=== PATIENT | female | born 1965 | race African-American/Black ===

== ENCOUNTER 2016-11-12 16:44 | Inpatient (IN) | payer OTHER ==
[~2016-11-12] VITALS: Ht 157.5 cm; Wt 80.8 kg
[~2016-11-12 16:44] MED LIST: PHEN15CA PO; VITA20003 PO
[2016-11-12 16:47] VITALS: BP 140/88; PULSE 102; RESP 20; TEMP 97.8; O2SAT 99
--- NOTE | 2016-11-12 16:56 | PD ---
Physical Exam Date Seen by Provider: Nov 12, 2016 Time Seen by Provider: 16:49 Data Data Last Documented VS Vital Signs Date Time Temp Pulse Resp B/P Pulse Ox O2 Delivery O2 Flow Rate FiO2 11/12/16 16:47 97.8 102 20 140/88 99 Room Air MDM Supervised Visit with WENDI: No Narrative Course 51 YO F with complaint of severe abdominal pain. Patient states recent diagnosis of metastatic liver cancer. History of breast cancer. States that Dr. Aggarwal sent her to be admitted for liver biopsy. Treated with morphine PO last night. Vitals reviewed. Seen in triage, awaiting bed placement. Fanny Huertas Nov 12, 2016 16:55
--- NOTE | 2016-11-12 17:27 | PD ---
HPI Chief Complaint: Abdominal Pain Time Seen by Provider: 17:04 Travel History International Travel<30 days: No Contact w/Intl Traveler<30days: No Traveled to known affect area: No History of Present Illness HPI PATIENT HAS KNOWN H/O BREAST CA HAD A CT ABD/PELVIS DONE YESTERDAY AT [facility] WHICH SHOWED METS LIVER CA AND BONE PER DR MACARIO SHE WAS TOLD TO COME HERE SINCE HE'S SCHEDULING A BIOPSY FOR TOMORROW. PFSH Past Medical History Hx Anticoagulant Therapy: No Asthma: No Blood Disorders: No Anxiety: No Depression: No Heart Rhythm Problems: No Cancer: Yes (BREAST CA) Cardiovascular Problems: Yes (MVP) High Cholesterol: No Chemotherapy: Yes (RADIATION BRAIN TUMOR) Chest Pain: No Congestive Heart Failure: No COPD: No Cerebrovascular Accident: No Diabetes: No Endocrine: No Genitourinary: No Hepatitis: No Hiatal Hernia: No Immune Disorder: No Musculoskeletal: No Neurologic: No Psychiatric: No Reproductive: No Respiratory: No Radiation Therapy: Yes (menigioma in head) Sleep Apnea: No Thyroid Disease: No ?: Not Past Surgical History Abdominal Surgery: No AICD: No Body Medical Devices: BREAST RECONSTRUCTION Cardiac Surgery: No Ear Surgery: No Endocrine Surgery: No Eye Surgery: No Genitourinary Surgery: No Gynecologic Surgery: Yes (HYSTERECTOMY) Hysterectomy: Yes Joint Replacement: No Mastectomy: Yes (bilateral) Oral Surgery: No Pacemaker: No Thoracic Surgery: Yes (LT LUMPECTOMY WITH LYMPH NODES) Other Surgery: Yes (bilateral mastectomies) Social History Alcohol Use: No Tobacco Use: No Substance Use: No Allergies-Medications (Allergen,Severity, Reaction): Coded Allergies: Percocet (Verified Allergy, Unknown, Itching, 11/12/16) Reported Meds & Prescriptions Reported Meds & Active Scripts Active Reported Vitamin D (Cholecalciferol) Unknown Strength Cap 1 Tab PO WEEKLY Phentermine Hcl (Phentermine Resin Complex) Unknown Strength Cap 1 Tab PO DAILY Review of Systems Except as stated in HPI: all other systems reviewed are Neg Gastrointestinal: Positive: Nausea, Abdominal Pain Physical Exam Narrative GENERAL: SKIN: Warm and dry. HEAD: Atraumatic. Normocephalic. EYES: Pupils equal and round. No scleral icterus. No injection or drainage. ENT: No nasal bleeding or discharge. Mucous membranes pink and moist. NECK: Trachea midline. No JVD. CARDIOVASCULAR: Regular rate and rhythm. RESPIRATORY: No accessory muscle use. Clear to auscultation. Breath sounds equal bilaterally. GASTROINTESTINAL: Abdomen soft, DIFFUSELY TTP, HEPATOMEGALY NOTED, NO REBOUND/ RIGIDITY/ MUSCULOSKELETAL: Extremities without clubbing, cyanosis, or edema. No obvious deformities. NEUROLOGICAL: Awake and alert. No obvious cranial nerve deficits. Motor grossly within normal limits. Five out of 5 muscle strength in the arms and legs. Normal speech. PSYCHIATRIC: Appropriate mood and affect; insight and judgment normal. Data Data Last Documented VS Vital Signs Date Time Temp Pulse Resp B/P Pulse Ox O2 Delivery O2 Flow Rate FiO2 11/12/16 17:40 131/90 98 11/12/16 16:47 97.8 102 20 Room Air Orders Complete Blood Count With Diff (11/12/16 17:22) Comprehensive Metabolic Panel (11/12/16 17:22) Iv Access Insert/Monitor (11/12/16 17:22) Ecg Monitoring (11/12/16 17:22) Oximetry (11/12/16 17:22) NPO (11/12/16 17:22) Ondansetron Inj (Zofran Inj) (11/12/16 17:30) Sodium Chloride 0.9% Flush (Ns Flush) (11/12/16 17:30) Hydromorphone Pf Inj (Dilaudid Pf Inj) (11/12/16 17:30) Prothrombin Time / Inr (Pt) (11/12/16 17:22) Act Partial Throm Time (Ptt) (11/12/16 17:22) Dext 5%-Nacl 0.45% 500 Ml Inj (D5w-1/2 N (11/12/16 17:45) Consult Medical Oncology (11/12/16 ) Admit Order (Ed Use Only) (11/12/16 17:43) MDM Medical Decision Making Medical Screen Exam Complete: Yes Emergency Medical Condition: Yes Medical Record Reviewed: Yes Differential Diagnosis KNOWN REASON FOR ABD PAIN...CT REPORT AT [facility] NOTED AND REVIEWED Narrative Course AFTER D/W DR JAMES AND HENRY, WILL HAVE PATIENT OBS FOR PAIN CONTROL AND EXPECTED LIVER BX TOMORROW AM Diagnosis Primary Impression: PAIN CONTROL Additional Impression: LIVER CA R/O METS Admitting Information Admitting Physician Requests: Observation Cleve Edwards MD Nov 12, 2016 17:27
[2016-11-12] MEDS ORDERED: HYDROmorphone HCL PF 1 MG/ML VIAL IVS ONE (17:30)
[2016-11-12] MEDS ORDERED: SODIUM CHLORIDE 0.9% FLUSH 10 ML FLUSH IV FLUSH PRN ×2 (17:30→18:30)
[2016-11-12] MEDS ORDERED: ONDANSETRON HCL 4 MG/2 ML VIAL IVP ONE (17:30)
[2016-11-12 17:40] VITALS: BP 131/90; O2SAT 98
[2016-11-12] MEDS ORDERED: DEXT 5%-NACL 0.45% 500 ML INJ 500 ML IV ONE (17:45)
--- NOTE | 2016-11-12 18:29 | HHI.HP ---
HPI Service [facility] Hospitalists Primary Care Physician Bekah Hinton MD Admission Diagnosis LIVER LESIONS POSSIBLE METASTASIS Chief Complaint: sent by oncology for admit for liver biopsy Travel History International Travel<30 Days: No Contact w/Intl Traveler <30 Da: No Traveled to Known Affected Are: No History of Present Illness 51 y/o female with hx breast cancer left s/p bilateral mastectomy reconstruction ,hx brain meningoma s/p RT [address] abdomen by oncology showed mass liver bones and was told to come to hospital for admit for liver biopsy . Patient does have some abdominal pain. Review of Systems Gastrointestinal: COMPLAINS OF: Abdominal pain Past Family Social History Past Medical History bilateral breast mastectomy s/p left breast cancer ,meningoma previous RT to brain Past Surgical History bilateral mastectomies breast reconstruction,hysterectomy Reported Medications was on diet pill and vit d Allergies: Coded Allergies: Percocet (Verified Allergy, Unknown, Itching, 11/12/16) Social History NS,ND Physical Exam Vital Signs Vital Signs Date Time Temp Pulse Resp B/P Pulse Ox O2 Delivery O2 Flow Rate FiO2 11/12/16 17:40 131/90 98 11/12/16 16:47 97.8 102 20 140/88 99 Room Air Physical Exam GENERAL: This is a well-nourished, well-developed patient, in no apparent distress. SKIN: No rashes, ecchymoses or lesions. Cool and dry. HEAD: Atraumatic. Normocephalic. No temporal or scalp tenderness. EYES: Pupils equal round and reactive. Extraocular motions intact. No scleral icterus. No injection or drainage. ENT: Nose without bleeding, purulent drainage or septal hematoma. Throat without erythema, tonsillar hypertrophy or exudate. Uvula midline. Airway patent. NECK: Trachea midline. No JVD or lymphadenopathy. Supple, nontender, no meningeal signs. CARDIOVASCULAR: Regular rate and rhythm without murmurs, gallops, or rubs. RESPIRATORY: Clear to auscultation. Breath sounds equal bilaterally. No wheezes , rales, or rhonchi. GASTROINTESTINAL: Abdomen soft, non-tender, nondistended. No hepato-splenomegaly , or palpable masses. No guarding. MUSCULOSKELETAL: Extremities without clubbing, cyanosis, or edema. No joint tenderness, effusion, or edema noted. No calf tenderness. Negative Homans sign bilaterally. NEUROLOGICAL: Awake and alert. Cranial nerves II through XII intact. Motor and sensory grossly within normal limits. Five out of 5 muscle strength in all muscle groups. Normal speech. Laboratory all pending Assessment and Plan Problem List: (1) Personal history of malignant neoplasm of breast Status: Chronic Plan: consult oncology (2) Metastasis to liver Status: Acute Plan: abnormality seen on CT scan plan for possible liver biopsy plan as per oncology Assessment and Plan further plan as per oncology Code Status full Discussed Condition With patient Renato Castillo MD Nov 12, 2016 18:29
[2016-11-12] MEDS ORDERED: LACTULOSE SYRUP 20 GM/30 ML CUP PO PRN (18:30)
[2016-11-12] MEDS ORDERED: SENNOSIDES 8.6 MG TAB PO PRN (18:30)
[2016-11-12] MEDS ORDERED: BISACODYL 10 MG SUPP RECTAL PRN (18:30)
[2016-11-12] MEDS ORDERED: MAGNESIUM HYDROXIDE SUSP 30 ML CUP PO PRN (18:30)
[2016-11-12] MEDS ORDERED: ONDANSETRON HCL 4 MG/2 ML VIAL IVP PRN (18:30)
[2016-11-12] MEDS ORDERED: NALOXONE HCL 0.4 MG/ML AMP IV PRN (18:30)
[2016-11-12 19:06] LABS: AUTOMATED NEUTROPHIL # 4.1 TH/MM3 (1.8-7.7); BASOPHIL # 0.1 TH/MM3 (0-0.2); BASOPHIL % 0.8 % (0.0-2.0); EOSINOPHIL # 0.1 TH/MM3 (0-0.4); EOSINOPHIL % 0.8 % (0.0-4.0); HEMATOCRIT 42.4 % (35.0-46.0); HEMO FLAGS DIFF FINAL; LYMPHOCYTE # 1.5 TH/MM3 (1.0-4.8); MEAN CELL VOLUME 92.8 FL (80.0-100.0); MEAN CORPUSCULAR HEMOGLOBIN 29.5 PG (27.0-34.0); MEAN CORPUSCULAR HGB CONC 31.8 % (32.0-36.0); MONO % 12.6 % (0.0-8.0); NEUT % 62.8 % (16.0-70.0); PLATELET COUNT 278 TH/MM3 (150-450); RED BLOOD COUNT 4.57 MIL/MM3 (4.00-5.30); RED CELL DISTRIBUTION WIDTH 15.3 % (11.6-17.2); WHITE BLOOD COUNT 6.5 TH/MM3 (4.0-11.0)
[2016-11-12 19:14] LABS: APTT (PATIENT) 27.1 SEC (24.3-30.1); PROTHROMBIN TIME - PATIENT 11.2 SEC (9.8-11.6)
[2016-11-12 19:15] VITALS: BP 121/83; PULSE 81; RESP 20; O2SAT 94
[2016-11-12 19:16] LABS: ANION GAP 11 MEQ/L (5-15); AST (GOT) 134 U/L (15-37); BICARBONATE 25.6 MEQ/L (21.0-32.0); BLOOD UREA NITROGEN 12 MG/DL (7-18); CHLORIDE 103 MEQ/L (98-107); GLOMERULAR FILTRATION RATE 74 ML/MIN (>89); POTASSIUM 3.6 MEQ/L (3.5-5.1); SODIUM (NA) 140 MEQ/L (136-145)
[2016-11-12 19:17] LABS: ALT (GPT) 59 U/L (10-53)
[2016-11-12 19:19] LABS: ALKALINE PHOSPHATASE 264 U/L (45-117); TOTAL BILIRUBIN ADULT 1.4 MG/DL (0.2-1.0)
[2016-11-12] MEDS: DOCUSATE SODIUM 50 MG/SENNA 8.6 MG TAB PO SCH (20:47)
[2016-11-12] MEDS: SODIUM CHLORIDE 0.9% FLUSH 10 ML FLUSH IV FLUSH SCH (20:47)
[2016-11-12 20:54] VITALS: BP 137/98; PULSE 80; RESP 18; TEMP 98; O2SAT 97
[2016-11-12] MEDS: HYDROmorphone HCL PF 1 MG/ML VIAL IV PRN (23:45)
[2016-11-13] VITALS (11 sets, daily range): BP systolic 109–165; BP diastolic 69–98; PULSE 78–91; RESP 14–20; TEMP 97.7–98.4; O2SAT 91–100
[2016-11-13] MEDS: HYDROmorphone HCL PF 1 MG/ML VIAL IV PRN ×2 (04:51→09:45)
[2016-11-13] MEDS: SODIUM CHLORIDE 0.9% FLUSH 10 ML FLUSH IV FLUSH SCH ×2 (08:01→20:47)
[2016-11-13] MEDS: DOCUSATE SODIUM 50 MG/SENNA 8.6 MG TAB PO SCH ×2 (08:01→20:47)
--- NOTE | 2016-11-13 08:41 | MB ---
cc: TESS ARNETT MD,FANY ISSA DATE OF CONSULTATION: 11/13/2016 REASON FOR CONSULTATION Patient with extensive liver masses; likely malignancy of unknown primary. She is in an impending visceral crisis. Also has symptomatic bony metastases. CHIEF COMPLAINT Abdominal pain and fatigue. HISTORY OF PRESENT ILLNESS Ms. 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 The patient was treated with modified radical mastectomy with sparing of the skin of the breast followed by observation. She had been without evidence of disease recurrence. For the past 4 weeks or so she had been feeling upper abdominal pain and flank pain on both sides. She has also had a decreased appetite and fatigue. She reported the symptoms initially to her primary care physician and underwent abdominal ultrasound last week, the ultrasound revealed masses within the liver. This was followed up with a CT scan of the abdomen and pelvis with IV contrast and this revealed extensive and very large masses involving the liver. Additionally, she was noted to have pulmonary nodules and destructive bony lesions consistent with metastases. She was referred to me on Sunday11/10/2016 and was seen the same day. The patient's blood work was reviewed and it was noted she had hyperbilirubinemia and elevated liver enzymes. Additionally, given the massive involvement of the liver with metastases she was recommended an urgent workup. She was offered a hospitalization at that time, however, she declined and chose to come in on Sunday afternoon for Sunday morning biopsy to help identify primary. She came in last night to the emergency department because the pain was quite severe and not managed at home. PAST MEDICAL HISTORY 1. 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 2. Meningioma. PAST SURGICAL HISTORY 1. Partial hysterectomy. 2. Left breast biopsy. 3. Left breast mastectomy. 4. Prophylactic right breast mastectomy. 5. Breast reconstruction. 6. Tubal ligation. 7. Colonoscopy. GYNECOLOGIC HISTORY 5, para 5. Postmenopausal. FAMILY HISTORY Mother with history of breast carcinoma at the age of 55, maternal grandmother with history of ovarian cancer. SOCIAL HISTORY The patient is , she lives at home with her , she has four adult children. She is a lifelong nonsmoker and also denies a history of heavy alcohol consumption. ALLERGIES NO KNOWN DRUG ALLERGIES. MEDICATIONS Current inpatient medications: 1. Senna/Colace one tablet p.o. b.i.d. 2. Dilaudid 0.5 mg q.4 hours as needed for pain. 3. Lactulose 30 mL p.o. daily. 4. Magnesium hydroxide 30 mL p.o. q. 12 hours. 5. Naloxone 0.4 mg IV as needed for over sedation. 6. Ondansetron 4 mg IV q.4 hours as needed for nausea and vomiting. 7. Senna 17.2 mg p.o. q. 12 hours for moderate to severe nausea. REVIEW OF SYSTEMS 13-point review of systems were obtained and the following are the pertinent positives: CONSTITUTIONAL: The patient reports fatigue, weakness, decreased appetite. HEENT: Reports headaches, denies soreness in the throat, denies nosebleeds, denies difficulty swallowing. RESPIRATORY: Denies difficulty breathing, pleuritic chest pain, PND, orthopnea, hemoptysis. CARDIOVASCULAR: Denies angina-like chest pain, PND, orthopnea, palpitations. GI: Reports right and left upper quadrant abdominal pain, fullness, and right and left flank pain, she denies nausea, vomiting, diarrhea hematochezia, melena or jaundice. : Denies dysuria, hematuria, urinary incontinence. LATEX FOAM WORKER: Denies any focal sensory or motor deficits. PHYSICAL EXAMINATION VITAL SIGNS: Temperature 98.4 degrees Fahrenheit, heart rate 78 beats per minute, respiratory rate 18, blood pressure 122/72, O2 sats 98% on room air. GENERAL PHYSICAL APPEARANCE: Ms. Reynoso is a very pleasant middle-aged female, she is of medium height and moderate build, appears to be in no acute distress and has a pleasant disposition. HEENT: Head is atraumatic, normocephalic, conjunctivae are pale, sclerae are mildly icteric, EOMI, PERRLA. ORAL EXAM: No pharyngeal erythema. NECK: No palpable cervical or supraclavicular lymphadenopathy. RESPIRATORY EXAM: Good air movement bilaterally. No added breath sounds. CARDIOVASCULAR: Regular rate and rhythm, S1-S2. No obvious murmurs, rubs or gallops. ABDOMEN: Protuberant belly, soft, tender over the upper quadrants, hepatomegaly is palpable. No other organ enlargement noted. LOWER EXTREMITIES: No pretibial edema. No calf tenderness. LATEX FOAM WORKER: No focal sensory or motor deficits. LABORATORY FINDINGS Blood work dated 11/12/2016: Sodium 140, potassium 3.6, chloride 103, bicarb 25.6, BUN 12, creatinine 0.96, EGFR 74, random glucose 113, calcium 9.4, total bilirubin 1.4, AST 134, ALT 59, alkaline phosphatase is 264, albumin of 3.2. Coags: INR 1, PT 11.2, PTT 27.1, CBC: WBC count 6.5, hemoglobin 13.5 gm/dl, hematocrit 42.4%, platelet count 278, absolute neutrophil count is 4.1. IMAGING STUDIES Imaging studies performed at [facility] dated 11/09/2016: With and without contrast: 1. Hepatomegaly with innumerable rim enhancing liver masses throughout the liver with some of the larger lesions demonstrating central necrosis. Imaging features are suspicious for metastatic disease. There are 5 lytic destructive bone lesions identified with the largest in the right posterior iliac bone, this lesion would be amenable to image guided percutaneous biopsy if histologic diagnosis is needed. There is also a 4-mm nodule in the right lower lobe of the lung. Given the findings of suspicious metastatic disease consider CT with IV contrast of the lungs. Small volume free fluid in the pelvis. ASSESSMENT Ms. Reynoso is a 51-year-old female with extensively metastatic malignancy of unknown primary. Tissue diagnosis is pending. Her CT imaging of the abdomen was reviewed and she has tremendous metastatic disease in the liver and given the abnormal liver function testing I suspect she has an impending visceral crisis. In situations where a visceral crisis is suspected, establishing a tissue diagnosis of utmost importance so as to initiate appropriate therapy. She has been recommended biopsy, she may undergo a liver biopsy or have one of the bony metastases biopsied. I have requested CEA, CA 15-3 and CA 19-9 levels as baseline tumor markers. Additionally, I will request imaging of the chest as well to stage her fully and to also quantify any possible intrathoracic disease or bony metastases to the thoracic bony structures. Imaging of the brain will also be needed but this may be done as an outpatient as she has no neurologic symptoms. I would like to see this patient in followup in my office later this week to discuss the findings on the biopsy. MD ANABEL Odonnell/AZAM /7:50 AM /8:08 AM
[2016-11-13] MEDS ORDERED: LIDOCAINE HCL 1% 20 ML VIAL ONE (11:59)
[2016-11-13] MEDS ORDERED: fentaNYL CITRATE 250 MCG/5 ML AMP ONE (12:33)
[2016-11-13] MEDS ORDERED: MIDAZOLAM HCL 5 MG/5 ML VIAL ONE (12:33)
--- NOTE | 2016-11-13 14:10 | RADRPT ---
EXAM DATE/TIME: 11/13/2016 12:48 [facility] COMPARISON: No previous studies available for comparison. INDICATIONS : Mass. SEDATION TIME: 30 minutes BIOPSY SITE: liver MEDICATION(S): 1.) 2.5 mg midazolam (Versed) IV 2.) 125 mcg fentanyl (Sublimaze) IV DEVICE(S): 1.) 18 gauge Guerra blunt needle 2.) 20 gauge Temno core biopsy needle MEDICAL HISTORY : Carcinoma, breast. SURGICAL HISTORY : Hysterectomy. lumpectomy ENCOUNTER: Initial ACUITY: 1 day PAIN SCORE: 0/10 LOCATION: Bilateral abdomen A total of two core specimen(s) were obtained and sent to the laboratory for pathologic evaluation. PROCEDURE: 1. CT guided liver biopsy. 2. Conscious sedation with continuous EKG and oximetry monitoring. 3. EKG and oximetry remained stable throughout the procedure. Prior to the procedure informed consent was obtained. Any appropriate prior imaging studies were rev iewed. Using automated exposure control and adjustment of the mA and/or kV according to patient size, radiat ion dose was kept as low as reasonably achievable to obtain optimal diagnostic quality images. The site was prepped in a sterile fashion. Full sterile technique was used, including cap, mask, narayan rile gloves and gown and a large sterile sheet. Hand hygiene and 2% chlorhexidine and/or betadine/al cohol prep was utilized per protocol for cutaneous antisepsis. The skin and subcutaneous tissues wer e infiltrated with local anesthetic solution. Under CT guidance an 18 gauge blunt needle was placed down to one of the masses in the anterior right lobe. 318 gauge cores were obtained. Follow-up CT scan reveals no hemorrhage. The patient tolerated the procedure well and there were no complications. The patient was returned to the Radiology Outpatient Unit in stable condition. CONCLUSION: Uncomplicated CT guided biopsy. Pathology is pending. Alex Kelley MD FACR on November 13, 2016 at 14:04 Board Certified Radiologist. This report was verified electronically.
--- NOTE | 2016-11-13 15:33 | RADRPT ---
EXAM DATE/TIME: 11/13/2016 12:34 [facility] COMPARISON: CT THORAX W/O CONTRAST, March 01, 2015, 16:18. INDICATIONS : Shortness of breath, evaluate for metastatic disease. RADIATION DOSE: 13.06 CTDIvol (mGy) MEDICAL HISTORY : Carcinoma, breast. SURGICAL HISTORY : Hysterectomy. ENCOUNTER: Initial ACUITY: 1 day PAIN SCALE: 0/10 LOCATION: Bilateral chest TECHNIQUE: Volumetric scanning of the chest was performed. Using automated exposure control and adjustment of t he mA and/or kV according to patient size, radiation dose was kept as low as reasonably achievable to obtain optimal diagnostic quality images. FINDINGS: There are several small pulmonary nodules seen in the right lung. The largest one is seen in the rig ht lower lobe measuring 0.6 cm. There is questionable nodularity seen at the lateral left base. There is some reji rounding atelectasis making it difficult to confirm a nodule in this region. There are at least four nodules seen in the right lung. These nodules appear new. Bilateral breast implants are present. The axillary regions appear clear. Significant hilar mediast inal adenopathy is not seen. There are numerous masses seen throughout the liver, several of these masses measure at least 6 cm. Multiple bone lesions are seen. This includes a large bone lesion involving the left pedicle of T10. This measures approximately 2.5 x 1.6 cm. It extends into the left lateral aspect of the spinal canal. There is a lso a smaller lesion seen at the anterior aspect of the T8 and anterior aspect of the T12 vertebral bodies. There does appear to be a small focal bone lesion seen at the superior right lateral aspect of the st ernum. CONCLUSION: 1. Numerous large masses throughout the liver consistent with metastatic disease. 2. Several areas of bony metastatic disease. The most concerning lesion is at the left T10 level ca using erosion of the pedicle and extending into the transverse process and base of the spinous proces s. This also erodes into the left side of the spinal canal and abuts the thecal sac. 3. Development of several small pulmonary nodules. The largest nodule only measures 6 mm. However given all of the other findings and the fact these are new, metastatic lesions need to be suspected. Theodore Langley MD on November 13, 2016 at 14:03 Board Certified Radiologist. This report was verified electronically.
--- NOTE | 2016-11-13 16:20 | HHI.PR ---
Subjective Remarks Pt had Liver biopsy today by IR Objective Vitals Vital Signs Date Time Temp Pulse Resp B/P Pulse Ox O2 Delivery O2 Flow Rate FiO2 11/13/16 15:59 81 131/82 98 11/13/16 14:50 98.0 89 16 127/84 97 11/13/16 14:20 85 18 127/87 97 11/13/16 13:50 88 17 123/80 96 11/13/16 13:35 98.3 84 16 118/69 91 11/13/16 11:36 97.9 84 18 123/87 95 11/13/16 08:18 97.7 86 16 165/92 98 11/13/16 05:23 22 11/13/16 04:31 98.4 78 18 122/72 98 11/13/16 00:30 98.1 78 14 111/73 97 11/12/16 20:54 98.0 80 18 137/98 97 11/12/16 19:15 81 20 121/83 94 Room Air 11/12/16 17:40 131/90 98 11/12/16 16:47 97.8 102 20 140/88 99 Room Air Result Diagram: 11/12/16 1815 11/12/16 1815 Other Results Laboratory Tests Test 11/12/16 11/13/16 18:15 10:52 White Blood Count 6.5 TH/MM3 Red Blood Count 4.57 MIL/MM3 Hemoglobin 13.5 GM/DL Hematocrit 42.4 % Mean Corpuscular Volume 92.8 FL Mean Corpuscular Hemoglobin 29.5 PG Mean Corpuscular Hemoglobin 31.8 % Concent Red Cell Distribution Width 15.3 % Platelet Count 278 TH/MM3 Mean Platelet Volume 8.6 FL Neutrophils (%) (Auto) 62.8 % Lymphocytes (%) (Auto) 23.0 % Monocytes (%) (Auto) 12.6 % Eosinophils (%) (Auto) 0.8 % Basophils (%) (Auto) 0.8 % Neutrophils # (Auto) 4.1 TH/MM3 Lymphocytes # (Auto) 1.5 TH/MM3 Monocytes # (Auto) 0.8 TH/MM3 Eosinophils # (Auto) 0.1 TH/MM3 Basophils # (Auto) 0.1 TH/MM3 CBC Comment DIFF FINAL Differential Comment Prothrombin Time 11.2 SEC Prothromb Time International 1.0 RATIO Ratio Activated Partial 27.1 SEC Thromboplast Time Sodium Level 140 MEQ/L Potassium Level 3.6 MEQ/L Chloride Level 103 MEQ/L Carbon Dioxide Level 25.6 MEQ/L Anion Gap 11 MEQ/L Blood Urea Nitrogen 12 MG/DL Creatinine 0.96 MG/DL Estimat Glomerular Filtration 74 ML/MIN Rate Random Glucose 113 MG/DL Calcium Level 9.4 MG/DL Total Bilirubin 1.4 MG/DL Aspartate Amino Transf 134 U/L (AST/SGOT) Alanine Aminotransferase 59 U/L (ALT/SGPT) Alkaline Phosphatase 264 U/L Total Protein 7.7 GM/DL Albumin 3.2 GM/DL Carcinoembryonic Antigen 16.9 NG/ML Imaging Last Impressions Liver Biopsy CT 11/13/16 0000 Signed Impressions: Service Date/Time: Sunday, November 13, 2016 12:48 - CONCLUSION: Uncomplicated CT guided biopsy. Pathology is pending. Alex Kelley MD FACR Objective Remarks General: NAD, AAOx3 Chest: CTA Cardiac: Regular Abd: +BS, soft mild RUQ tenderness Ext: No edema A/P Problem List: (1) Metastasis to liver Status: Acute Plan: - Pt is a 51 y/o female with hx of high grade ductal carcinoma in situ of the left breast, initially dx in 2013 s/p radical mastectomy/ - Over the last month she has had issues with abdominal pain/bilateral flank pain, and poor appetite. - Outpt Liver US revealed masses in the liver. - Outpt CT Abd/pelvis --> Extensive and very large masses involving the liver, destructive jessica lesions and pulmonary nodules. - Pt was seen by Dr. Aggarwal as an outpt on 11/10 and found to have elevated LFTs and was recommended to go to the ED at that time but declined at that time and actually reported to the ED on 11/12. - Pt underwent CT Guided liver biopsy on 11/13 - Pathology pending. - CT Chest (11/13/16) --> Numerous large masses throughout the liver consistent with metastatic disease. Several areas of bony metastatic disease, most concerning lesion at the left T10 level causing erosion of the pedicle and extending into the transverse process and base of the spinous process. This also erodes into the left side of the spinal canal and abuts the thecal sac. Development of several small pulmonary nodules, the largest only measure 6mm. - Oncology is following. - CEA elevated at 16.9, CA 15-3 and CA 19-9 are pending. - Monitor LFTs - Supportive care - Start Oxycodone 5mg Q6H scheduled and PRN Dilaudid - Diet as tolerated - Constipation precautions - DVT prophylaxis (2) Personal history of malignant neoplasm of breast Status: Chronic Plan: - See above. Assessment and Plan Patient examined. Assessment and plan formulated with Shreya Gonzalez PA-C. I agree with the above. Shreya Gonzalez Nov 13, 2016 16:20 Mauricio Figueroa DO Nov 17, 2016 10:23
[2016-11-14] VITALS: BP 125/86; PULSE 80; RESP 16; TEMP 97.5; O2SAT 100
[2016-11-14 04:00] VITALS: BP 127/90; PULSE 75; RESP 16; TEMP 97.3; O2SAT 97
[2016-11-14 06:59] LABS: AUTOMATED NEUTROPHIL # 3.5 TH/MM3 (1.8-7.7); BASOPHIL # 0.1 TH/MM3 (0-0.2); BASOPHIL % 1.3 % (0.0-2.0); EOSINOPHIL # 0.1 TH/MM3 (0-0.4); EOSINOPHIL % 1.6 % (0.0-4.0); HEMO FLAGS DIFF FINAL; LYMPH % 27.6 % (9.0-44.0); LYMPHOCYTE # 1.7 TH/MM3 (1.0-4.8); MEAN CELL VOLUME 93.5 FL (80.0-100.0); MEAN CORPUSCULAR HEMOGLOBIN 29.7 PG (27.0-34.0); MEAN CORPUSCULAR HGB CONC 31.7 % (32.0-36.0); MONO % 11.1 % (0.0-8.0); NEUT % 58.4 % (16.0-70.0); PLATELET COUNT 278 TH/MM3 (150-450); RED BLOOD COUNT 4.71 MIL/MM3 (4.00-5.30); RED CELL DISTRIBUTION WIDTH 15.2 % (11.6-17.2); WHITE BLOOD COUNT 6.1 TH/MM3 (4.0-11.0)
[2016-11-14 07:19] LABS: ALT (GPT) 60 U/L (10-53); ANION GAP 7 MEQ/L (5-15); AST (GOT) 145 U/L (15-37); BICARBONATE 29.8 MEQ/L (21.0-32.0); BLOOD UREA NITROGEN 9 MG/DL (7-18); CHLORIDE 102 MEQ/L (98-107); GLOMERULAR FILTRATION RATE 93 ML/MIN (>89); POTASSIUM 3.6 MEQ/L (3.5-5.1); SODIUM (NA) 139 MEQ/L (136-145)
[2016-11-14 07:21] LABS: ALKALINE PHOSPHATASE 294 U/L (45-117); TOTAL BILIRUBIN ADULT 1.5 MG/DL (0.2-1.0)
[2016-11-14 08:00] VITALS: BP 126/81; PULSE 71; RESP 16; TEMP 97.7; O2SAT 98
--- NOTE | 2016-11-14 08:32 | PD.ONC.PN ---
Subjective Subjective Remarks Afebrile overnight. Patient having some pain in thoracic back radiating around to rib cage. Pain controlled with Oxycodone. The pain medicine lasts for about 6 hours before the pain returns. She says she is happy with the current dose of pain medication as it allows her to stay awake and alert but with enough pain control. Objective Data Date Time Temp Pulse Resp B/P Pulse Ox O2 Delivery O2 Flow Rate FiO2 11/14/16 08:00 97.7 71 16 126/81 98 11/14/16 04:00 97.3 75 16 127/90 97 11/14/16 00:00 97.5 80 16 125/86 100 11/13/16 20:30 97.7 88 18 141/98 99 11/13/16 19:12 98.2 91 20 109/71 100 11/13/16 15:59 81 131/82 98 11/13/16 14:50 98.0 89 16 127/84 97 11/13/16 14:20 85 18 127/87 97 11/13/16 13:50 88 17 123/80 96 11/13/16 13:35 98.3 84 16 118/69 91 11/13/16 11:36 97.9 84 18 123/87 95 11/14/16 11/14/16 11/14/16 07:00 15:00 23:00 Intake Total 240 ml Balance 240 ml Result Diagram: 11/14/16 0555 11/14/16 0555 Laboratory Results Laboratory Tests Test 11/13/16 11/14/16 10:52 05:55 Carcinoembryonic Antigen 16.9 NG/ML CA 15-3 Antigen 1190.8 U/ML CA 19-9 Antigen LESS THAN 1.2 U/ML White Blood Count 6.1 TH/MM3 Red Blood Count 4.71 MIL/MM3 Hemoglobin 14.0 GM/DL Hematocrit 44.0 % Mean Corpuscular Volume 93.5 FL Mean Corpuscular Hemoglobin 29.7 PG Mean Corpuscular Hemoglobin 31.7 % Concent Red Cell Distribution Width 15.2 % Platelet Count 278 TH/MM3 Mean Platelet Volume 8.3 FL Neutrophils (%) (Auto) 58.4 % Lymphocytes (%) (Auto) 27.6 % Monocytes (%) (Auto) 11.1 % Eosinophils (%) (Auto) 1.6 % Basophils (%) (Auto) 1.3 % Neutrophils # (Auto) 3.5 TH/MM3 Lymphocytes # (Auto) 1.7 TH/MM3 Monocytes # (Auto) 0.7 TH/MM3 Eosinophils # (Auto) 0.1 TH/MM3 Basophils # (Auto) 0.1 TH/MM3 CBC Comment DIFF FINAL Differential Comment Sodium Level 139 MEQ/L Potassium Level 3.6 MEQ/L Chloride Level 102 MEQ/L Carbon Dioxide Level 29.8 MEQ/L Anion Gap 7 MEQ/L Blood Urea Nitrogen 9 MG/DL Creatinine 0.79 MG/DL Estimat Glomerular Filtration 93 ML/MIN Rate Random Glucose 71 MG/DL Calcium Level 9.4 MG/DL Total Bilirubin 1.5 MG/DL Aspartate Amino Transf 145 U/L (AST/SGOT) Alanine Aminotransferase 60 U/L (ALT/SGPT) Alkaline Phosphatase 294 U/L Total Protein 7.9 GM/DL Albumin 3.3 GM/DL Administered Medications Medications (Trade) Dose Ordered Sig/Jason Route PRN Reason Start Time Stop Time Status Last Admin Dose Admin Sodium Chloride (NS Flush) 2 ml BID IV FLUSH 11/12/16 21:00 11/13/16 20:47 Hydromorphone HCl (Dilaudid Pf Inj) 0.5 mg Q4H PRN IV pain 5-10 11/12/16 18:30 11/13/16 09:45 Senna/Docusate Sodium (Aviva-Colace) 1 tab BID PO 11/12/16 21:00 11/13/16 20:47 Oxycodone HCl (Roxicodone) 5 mg Q6H PO 11/13/16 17:00 11/14/16 04:50 Objective Remarks GENERAL: Middle aged female, upright in bed in nad SKIN: Warm and dry. HEAD: Normocephalic. EYES: No injection or drainage. NECK: Supple, trachea midline. CARDIOVASCULAR: Regular rate and rhythm RESPIRATORY: Breath sounds equal bilaterally. No accessory muscle use. GASTROINTESTINAL: Abdomen soft, non-tender, nondistended. EXTREMITIES: No cyanosis NEUROLOGICAL: awake and alert, normal speech. moving all extremities. Assessment/Plan Assessment 51y/o female with extensive liver masses; likely malignancy of unknown primary. Admitted with severe abdominal pain. 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 The patient was treated with modified radical mastectomy with sparing of the skin of the breast followed by observation. She had been without evidence of disease recurrence. -- For the past 4 weeks or so she had been feeling upper abdominal pain and flank pain on both sides. She has also had a decreased appetite and fatigue. She reported the symptoms initially to her primary care physician and underwent abdominal ultrasound last week, the ultrasound revealed masses within the liver. This was followed up with a CT scan of the abdomen and pelvis with IV contrast and this revealed extensive and very large masses involving the liver. Additionally, she was noted to have pulmonary nodules and destructive bony lesions consistent with metastases. Plan 1. extensive liver mets, unknown primary--s/p liver biopsy on 11/13. pathology pending. 2. bony mets--will consult radiation oncology as these are symptomatic/painful. Also T10 lesion is eroding into spinal canal. 3. pain management: continue Oxycodone 5mg PO q 6 hours, also has Dilaudid 0.5mg IV q 4 hours. 4. DVT prophylaxis: will start Lovenox 40mg SQ q 12, patient is at high risk for developing DVT. Dionna Ferrell Nov 14, 2016 08:31
--- NOTE | 2016-11-14 08:41 | HHI.PR ---
Subjective Remarks Pain is better controlled today. Tolerating her diet. +Flatus Afebrile Objective Vitals Vital Signs Date Time Temp Pulse Resp B/P Pulse Ox O2 Delivery O2 Flow Rate FiO2 11/14/16 08:00 97.7 71 16 126/81 98 11/14/16 04:00 97.3 75 16 127/90 97 11/14/16 00:00 97.5 80 16 125/86 100 11/13/16 20:30 97.7 88 18 141/98 99 11/13/16 19:12 98.2 91 20 109/71 100 11/13/16 15:59 81 131/82 98 11/13/16 14:50 98.0 89 16 127/84 97 11/13/16 14:20 85 18 127/87 97 11/13/16 13:50 88 17 123/80 96 11/13/16 13:35 98.3 84 16 118/69 91 11/13/16 11:36 97.9 84 18 123/87 95 11/13/16 11/13/16 11/14/16 15:00 23:00 07:00 Intake Total 0 ml 240 ml Balance 0 ml 240 ml Intake Oral 0 ml 240 ml # Voids 4 1 1 Result Diagram: 11/14/16 0555 11/14/16 0555 Other Results Laboratory Tests Test 11/12/16 11/13/16 11/14/16 18:15 10:52 05:55 White Blood Count 6.5 TH/MM3 6.1 TH/MM3 Red Blood Count 4.57 MIL/MM3 4.71 MIL/MM3 Hemoglobin 13.5 GM/DL 14.0 GM/DL Hematocrit 42.4 % 44.0 % Mean Corpuscular Volume 92.8 FL 93.5 FL Mean Corpuscular Hemoglobin 29.5 PG 29.7 PG Mean Corpuscular Hemoglobin 31.8 % 31.7 % Concent Red Cell Distribution Width 15.3 % 15.2 % Platelet Count 278 TH/MM3 278 TH/MM3 Mean Platelet Volume 8.6 FL 8.3 FL Neutrophils (%) (Auto) 62.8 % 58.4 % Lymphocytes (%) (Auto) 23.0 % 27.6 % Monocytes (%) (Auto) 12.6 % 11.1 % Eosinophils (%) (Auto) 0.8 % 1.6 % Basophils (%) (Auto) 0.8 % 1.3 % Neutrophils # (Auto) 4.1 TH/MM3 3.5 TH/MM3 Lymphocytes # (Auto) 1.5 TH/MM3 1.7 TH/MM3 Monocytes # (Auto) 0.8 TH/MM3 0.7 TH/MM3 Eosinophils # (Auto) 0.1 TH/MM3 0.1 TH/MM3 Basophils # (Auto) 0.1 TH/MM3 0.1 TH/MM3 CBC Comment DIFF FINAL DIFF FINAL Differential Comment Prothrombin Time 11.2 SEC Prothromb Time International 1.0 RATIO Ratio Activated Partial 27.1 SEC Thromboplast Time Sodium Level 140 MEQ/L 139 MEQ/L Potassium Level 3.6 MEQ/L 3.6 MEQ/L Chloride Level 103 MEQ/L 102 MEQ/L Carbon Dioxide Level 25.6 MEQ/L 29.8 MEQ/L Anion Gap 11 MEQ/L 7 MEQ/L Blood Urea Nitrogen 12 MG/DL 9 MG/DL Creatinine 0.96 MG/DL 0.79 MG/DL Estimat Glomerular Filtration 74 ML/MIN 93 ML/MIN Rate Random Glucose 113 MG/DL 71 MG/DL Calcium Level 9.4 MG/DL 9.4 MG/DL Total Bilirubin 1.4 MG/DL 1.5 MG/DL Aspartate Amino Transf 134 U/L 145 U/L (AST/SGOT) Alanine Aminotransferase 59 U/L 60 U/L (ALT/SGPT) Alkaline Phosphatase 264 U/L 294 U/L Total Protein 7.7 GM/DL 7.9 GM/DL Albumin 3.2 GM/DL 3.3 GM/DL Carcinoembryonic Antigen 16.9 NG/ML CA 15-3 Antigen 1190.8 U/ML CA 19-9 Antigen LESS THAN 1.2 U/ML Imaging Last Impressions Liver Biopsy CT 11/13/16 0000 Signed Impressions: Service Date/Time: Sunday, November 13, 2016 12:48 - CONCLUSION: Uncomplicated CT guided biopsy. Pathology is pending. Alex Kelley MD FACR Objective Remarks General: NAD, AAOx3 Chest: CTA Cardiac: Regular Abd: +BS, soft mild RUQ tenderness Ext: No edema A/P Problem List: (1) Metastasis to liver Status: Acute Plan: - Pt is a 51 y/o female with hx of high grade ductal carcinoma in situ of the left breast, initially dx in 2013 s/p radical mastectomy - Over the last month she has had issues with abdominal pain/bilateral flank pain, and poor appetite. - Outpt Liver US revealed masses in the liver. - Outpt CT Abd/pelvis --> Extensive and very large masses involving the liver, destructive jessica lesions and pulmonary nodules. - Pt was seen by Dr. Aggarwal as an outpt on 11/10 and found to have elevated LFTs and was recommended to go to the ED at that time but declined at that time and actually reported to the ED on 11/12. - Pt underwent CT Guided liver biopsy on 11/13 - Pathology pending. - CT Chest (11/13/16) --> Numerous large masses throughout the liver consistent with metastatic disease. Several areas of bony metastatic disease, most concerning lesion at the left T10 level causing erosion of the pedicle and extending into the transverse process and base of the spinous process. This also erodes into the left side of the spinal canal and abuts the thecal sac. Development of several small pulmonary nodules, the largest only measure 6mm. - Oncology is following. - CEA elevated at 16.9, CA 15-3 elevated at 1190.8 and CA 19-9 is less than 1.2 - Radiation oncology has been consulted for the painful thoracici spine met and liver mets - Monitor LFTs - Supportive care - Oxycodone 5mg Q6H scheduled and PRN Dilaudid - Diet as tolerated - Constipation precautions - DVT prophylaxis with Lovenox (2) Personal history of malignant neoplasm of breast Status: Chronic Plan: - See above. Assessment and Plan Patient examined. Assessment and plan formulated with Shreya Gonzalez PA-C. I agree with the above. Shreya Gonzalez Nov 14, 2016 08:41 Mauricio Figueroa DO Nov 17, 2016 10:24
[2016-11-14] MEDS: ENOXAPARIN SODIUM 40 MG/0.4 ML SYRINGE SQ SCH (09:03)
[2016-11-14] MEDS: DOCUSATE SODIUM 50 MG/SENNA 8.6 MG TAB PO SCH ×2 (09:03→21:06)
[2016-11-14] MEDS: SODIUM CHLORIDE 0.9% FLUSH 10 ML FLUSH IV FLUSH SCH ×2 (09:03→21:10)
[2016-11-14 12:00] VITALS: BP 133/92; PULSE 80; RESP 18; TEMP 97.6; O2SAT 97
[2016-11-14 16:00] VITALS: BP 138/80; PULSE 71; RESP 18; TEMP 97.5; O2SAT 99
--- NOTE | 2016-11-14 18:10 | PD.CONS ---
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 She complains of 3 or 4 weeks of progressive right greater than left flank pain with radiation to the right greater than left gluteal region and proximal thigh. A CT scan of the chest and abdomen completed last week revealed a large liver mass with distractive metastatic lesions in the thoracic spine with positive pulmonary nodules. She presented to the emergency room 11/13/16 due to intractable pain. She denies any significant pain weakness numbness or paresthesias in the upper or lower extremities. She complains of constipation but no bladder dysfunction. Review of Systems Constitutional: COMPLAINS OF: Fatigue, Change in appetite Eyes: DENIES: Blurred vision, Diplopia, Vision loss Respiratory: DENIES: Cough, Shortness of breath Cardiovascular: DENIES: Lower Extremity Edema Gastrointestinal: COMPLAINS OF: Constipation, DENIES: Diarrhea Musculoskeletal: COMPLAINS OF: Joint pain, Back pain Neurologic: DENIES: Headache Psychiatric: DENIES: Anxiety, Confusion Past Family Social History Allergies: Coded Allergies: Percocet (Verified Allergy, Unknown, Itching, 11/12/16) Past Medical History History of high-grade ductal carcinoma of the breast No history of significant cardiac, pulmonary disease Past Surgical History Bilateral mastectomy with reconstruction Hysterectomy Tubal ligation Reported Medications Reported Meds & Active Scripts Active Reported Vitamin D (Cholecalciferol) Unknown Strength Cap 1 Tab PO WEEKLY Phentermine Hcl (Phentermine Resin Complex) Unknown Strength Cap 1 Tab PO DAILY Family History Positive for breast and ovarian cancer in her mother and grandmother Social History Does not smoke cigarettes No significant alcohol use Physical Exam Vital Signs Vital Signs Date Time Temp Pulse Resp B/P Pulse Ox O2 Delivery O2 Flow Rate FiO2 11/14/16 16:00 97.5 71 18 138/80 99 11/14/16 12:00 97.6 80 18 133/92 97 11/14/16 08:00 97.7 71 16 126/81 98 11/14/16 04:00 97.3 75 16 127/90 97 11/14/16 00:00 97.5 80 16 125/86 100 11/13/16 20:30 97.7 88 18 141/98 99 11/13/16 19:12 98.2 91 20 109/71 100 Physical Exam GENERAL: This is a well-nourished, well-developed patient, in no apparent distress. SKIN: No rashes, ecchymoses or lesions. Cool and dry. HEAD: Atraumatic. Normocephalic. No temporal or scalp tenderness. EYES: Sclerae nonicteric ENT: No facial edema or ecchymosis NECK: Trachea midline. No JVD or lymphadenopathy. Supple, nontender, no meningeal signs. RESPIRATORY: Clear respirations, regular, nonlabored GASTROINTESTINAL: Mild abdominal distention. Mild tenderness primarily right upper quadrant. Positive right greater than left flank tenderness MUSCULOSKELETAL: Mild discomfort left distal thigh and knee with motor testing and range of motion. No significant lower extremity edema. NEUROLOGICAL: Awake and alert Oriented X 3 Speech is clear Conversant and appropriate Follow simple commands well Answers questions appropriately Reasonable judgment and insight Recent and remote memory are intact No evidence of anxiety or depression Pupils are equal and reactive to accommodation. Extra-ocular movements, visual redd to confrontation, facial sensorimotor, tongue, palate, sternocleidomastoid testing, hearing to finger rub testing, and bilateral shoulder shrug are all intact. Sensation is intact to light touch in all extremities Strength normal major flexion and extension groups all extremities Isauro's absent bilaterally No ankle clonus Plantar responses absent bilateral Fine motor movements intact upper extremities Laboratory Laboratory Tests Test 11/14/16 05:55 White Blood Count 6.1 Red Blood Count 4.71 Hemoglobin 14.0 Hematocrit 44.0 Mean Corpuscular Volume 93.5 Mean Corpuscular Hemoglobin 29.7 Mean Corpuscular Hemoglobin 31.7 Concent Red Cell Distribution Width 15.2 Platelet Count 278 Mean Platelet Volume 8.3 Neutrophils (%) (Auto) 58.4 Lymphocytes (%) (Auto) 27.6 Monocytes (%) (Auto) 11.1 Eosinophils (%) (Auto) 1.6 Basophils (%) (Auto) 1.3 Neutrophils # (Auto) 3.5 Lymphocytes # (Auto) 1.7 Monocytes # (Auto) 0.7 Eosinophils # (Auto) 0.1 Basophils # (Auto) 0.1 CBC Comment DIFF FINAL Differential Comment Sodium Level 139 Potassium Level 3.6 Chloride Level 102 Carbon Dioxide Level 29.8 Anion Gap 7 Blood Urea Nitrogen 9 Creatinine 0.79 Estimat Glomerular Filtration 93 Rate Random Glucose 71 Calcium Level 9.4 Total Bilirubin 1.5 Aspartate Amino Transf 145 (AST/SGOT) Alanine Aminotransferase 60 (ALT/SGPT) Alkaline Phosphatase 294 Total Protein 7.9 Albumin 3.3 Result Diagram: 11/14/16 0555 11/14/16 0555 Imaging 11/13/16 CT scan chest images reviewed by the undersigned. There is a destructive lesion at the left T10 lamina and pedicle with a soft tissue component impinging on the dorsal lateral left thecal sac. Liver Biopsy CT 11/13/16 0000 Signed Impressions: Service Date/Time: Sunday, November 13, 2016 12:48 - CONCLUSION: Uncomplicated CT guided biopsy. Pathology is pending. Alex Kelley MD FACR Chest CT 11/13/16 0000 Signed Impressions: Service Date/Time: Sunday, November 13, 2016 12:34 - CONCLUSION: 1. Numerous large masses throughout the liver consistent with metastatic disease. 2. Several areas of bony metastatic disease. The most concerning lesion is at the left T10 level causing erosion of the pedicle and extending into the transverse process and base of the spinous process. This also erodes into the left side of the spinal canal and abuts the thecal sac. 3. Development of several small pulmonary nodules. The largest nodule only measures 6 mm. However given all of the other findings and the fact these are new, metastatic lesions need to be suspected. Theodore Langley MD Assessment and Plan Assessment and Plan Impression: 1. Metastatic lesion to T10 pedicle and lamina with mild impingement on the spinal canal in patient with history of high-grade ductal carcinoma of the breast. Presently no evidence of thoracic myelopathy on the basis of imaging study, symptoms or examination. Recommendations: Findings were discussed at length with the patient and her family in the room today. Since the T10 lesion is relatively limited without definite instability or significant cord compression, initial treatment with radiation therapy would be reasonable for this patient. She states that she is artery been seen by radiation oncology with plans for treatment to begin possibly tomorrow. I advised her that there is a risk of progression of the lesion with development of spinal cord compression and instability which may yet require surgical intervention. Activity precautions and signs and symptoms to watch for have been fully discussed. Shiva Mcgrath MD Nov 14, 2016 18:10
[2016-11-14 20:00] VITALS: BP 132/86; PULSE 84; RESP 16; TEMP 97; O2SAT 97
[2016-11-15] VITALS: BP 126/83; PULSE 86; RESP 16; TEMP 98.4; O2SAT 96
[2016-11-15] MEDS: HYDROmorphone HCL PF 1 MG/ML VIAL IV PRN (01:21)
[2016-11-15 05:00] VITALS: BP 110/75; PULSE 77; RESP 16; TEMP 96.7; O2SAT 97
--- NOTE | 2016-11-15 07:32 | PD.ONC.PN ---
Subjective Subjective Remarks Patient reports severe midline back pain in the mid back, also reports abdominal and epigastric pain. Was seen by neurosurgery yesterday and will be seen by radiation oncology later today. Objective Data Date Time Temp Pulse Resp B/P Pulse Ox O2 Delivery O2 Flow Rate FiO2 11/15/16 05:00 96.7 77 16 110/75 97 11/15/16 00:00 98.4 86 16 126/83 96 11/14/16 20:00 97.0 84 16 132/86 97 11/14/16 16:00 97.5 71 18 138/80 99 11/14/16 12:00 97.6 80 18 133/92 97 11/14/16 08:00 97.7 71 16 126/81 98 11/15/16 11/15/16 11/15/16 07:00 15:00 23:00 Intake Total 120 ml Balance 120 ml Result Diagram: 11/14/1655 11/14/16 0555 Administered Medications Medications (Trade) Dose Ordered Sig/Jason Route PRN Reason Start Time Stop Time Status Last Admin Dose Admin Sodium Chloride (NS Flush) 2 ml BID IV FLUSH 11/12/16 21:00 11/14/16 21:10 Hydromorphone HCl (Dilaudid Pf Inj) 0.5 mg Q4H PRN IV pain 5-10 11/12/16 18:30 11/15/16 01:21 Senna/Docusate Sodium (Aviva-Colace) 1 tab BID PO 11/12/16 21:00 11/14/16 21:06 Oxycodone HCl (Roxicodone) 5 mg Q6H PO 11/13/16 17:00 11/15/16 05:04 Enoxaparin Sodium (Lovenox Inj) 40 mg Q24H SQ 11/14/16 08:30 11/14/16 09:03 Objective Remarks GENERAL PHYSICAL APPEARANCE: Ms. Reynoso is a very pleasant middle-aged female, she is of medium height and moderate build, appears to be in no acute distress and has a pleasant disposition. HEENT: Head is atraumatic, normocephalic, conjunctivae are pale, sclerae are mildly icteric, EOMI, PERRLA. ORAL EXAM: No pharyngeal erythema. NECK: No palpable cervical or supraclavicular lymphadenopathy. RESPIRATORY EXAM: Good air movement bilaterally. No added breath sounds. CARDIOVASCULAR: Regular rate and rhythm, S1-S2. No obvious murmurs, rubs or gallops. ABDOMEN: Protuberant belly, soft, tender over the upper quadrants, hepatomegaly is palpable. No other organ enlargement noted. LOWER EXTREMITIES: No pretibial edema. No calf tenderness. SOCIAL STUDIES DEPARTMENT CHAIR: No focal sensory or motor deficits. 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 She was diagnosed about 3 years ago and underwent surgical resection; skin sparing left breast mastectomy with sentinel lymph node biopsy along with prophylactic right breast modified radical mastectomy with skin and nipple sparing. Now presents with extensive metastatic disease to the liver as well as extensive metastatic disease to the axial bony skeleton. Liver biopsy indicates findings consistent with metastatic carcinoma of breast primary; positive for estrogen receptor expression and mammoglobin. She is in a visceral crisis given the extensive liver involvement. Additionally she has disease involving the T10 vertebral body with resultant nerve impingement and resultant pain. Plan 1. Metastatic carcinoma of breast primary positive for estrogen receptor expression. I will start her on an aromatase inhibitor today with anastrozole. I will request a HER-2 amplification testing on her liver biopsy. Echocardiogram has also been ordered to assess baseline cardiac function. Given the impending visceral crisis I would recommend initially treating her with combination chemotherapy to control her liver disease. After her liver disease is better controlled she may be given a trial on palliative endocrine therapy alone should she be HER-2 negative. 2. Infusion port placement; [facility] surgeons have been asked to see the patient. 3. Echocardiogram ordered for today. 4. 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 The patient may be probably treated with palliative radiation. I will infuse pamidronate 90 mg IV times one today. Tobias Aggarwal MD Nov 15, 2016 07:32
[2016-11-15 07:50] VITALS: BP 124/83; PULSE 79; RESP 20; TEMP 96.4; O2SAT 100
--- NOTE | 2016-11-15 08:49 | HHI.PR ---
Subjective Remarks Pt still has not had a BM. +Flatus Complains of continued back pain. Afebrile Objective Vitals Vital Signs Date Time Temp Pulse Resp B/P Pulse Ox O2 Delivery O2 Flow Rate FiO2 11/15/16 07:50 96.4 79 20 124/83 100 11/15/16 05:00 96.7 77 16 110/75 97 11/15/16 00:00 98.4 86 16 126/83 96 11/14/16 20:00 97.0 84 16 132/86 97 11/14/16 16:00 97.5 71 18 138/80 99 11/14/16 12:00 97.6 80 18 133/92 97 11/14/16 11/14/16 11/15/16 15:00 23:00 07:00 Intake Total 480 ml 120 ml Balance 480 ml 120 ml Intake Oral 480 ml 120 ml # Voids 2 1 Result Diagram: 11/14/16 0555 11/14/16 0555 Other Results Laboratory Tests Test 11/13/16 11/14/16 10:52 05:55 Carcinoembryonic Antigen 16.9 NG/ML CA 15-3 Antigen 1190.8 U/ML CA 19-9 Antigen LESS THAN 1.2 U/ML White Blood Count 6.1 TH/MM3 Red Blood Count 4.71 MIL/MM3 Hemoglobin 14.0 GM/DL Hematocrit 44.0 % Mean Corpuscular Volume 93.5 FL Mean Corpuscular Hemoglobin 29.7 PG Mean Corpuscular Hemoglobin 31.7 % Concent Red Cell Distribution Width 15.2 % Platelet Count 278 TH/MM3 Mean Platelet Volume 8.3 FL Neutrophils (%) (Auto) 58.4 % Lymphocytes (%) (Auto) 27.6 % Monocytes (%) (Auto) 11.1 % Eosinophils (%) (Auto) 1.6 % Basophils (%) (Auto) 1.3 % Neutrophils # (Auto) 3.5 TH/MM3 Lymphocytes # (Auto) 1.7 TH/MM3 Monocytes # (Auto) 0.7 TH/MM3 Eosinophils # (Auto) 0.1 TH/MM3 Basophils # (Auto) 0.1 TH/MM3 CBC Comment DIFF FINAL Differential Comment Sodium Level 139 MEQ/L Potassium Level 3.6 MEQ/L Chloride Level 102 MEQ/L Carbon Dioxide Level 29.8 MEQ/L Anion Gap 7 MEQ/L Blood Urea Nitrogen 9 MG/DL Creatinine 0.79 MG/DL Estimat Glomerular Filtration 93 ML/MIN Rate Random Glucose 71 MG/DL Calcium Level 9.4 MG/DL Total Bilirubin 1.5 MG/DL Aspartate Amino Transf 145 U/L (AST/SGOT) Alanine Aminotransferase 60 U/L (ALT/SGPT) Alkaline Phosphatase 294 U/L Total Protein 7.9 GM/DL Albumin 3.3 GM/DL Imaging Last Impressions Liver Biopsy CT 11/13/16 0000 Signed Impressions: Service Date/Time: Sunday, November 13, 2016 12:48 - CONCLUSION: Uncomplicated CT guided biopsy. Pathology is pending. 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 - Outpt Liver US revealed masses in the liver. - Outpt CT Abd/pelvis --> Extensive and very large masses involving the liver, destructive jessica lesions and pulmonary nodules. - Pt was seen by Dr. Aggarwal as an outpt on 11/10 and found to have elevated LFTs and was recommended to go to the ED at that time but declined at that time and actually reported to the ED on 11/12. - Pt underwent CT Guided liver biopsy on 11/13 - Pathology pending. - CT Chest (11/13/16) --> Numerous large masses throughout the liver consistent with metastatic disease. Several areas of bony metastatic disease, most concerning lesion at the left T10 level causing erosion of the pedicle and extending into the transverse process and base of the spinous process. This also erodes into the left side of the spinal canal and abuts the thecal sac. Development of several small pulmonary nodules, the largest only measure 6mm. - Oncology is following. - CEA elevated at 16.9, CA 15-3 elevated at 1190.8 and CA 19-9 is less than 1.2 - Radiation oncology has evaluated the pt and is planning for palliative XRT - Appreciate Neurosurgery evaluation, They felt that initial treatment with radiation therapy would be reasonable for this patient. She was advised by Neurosurgery that there is a risk of progression of the lesion with development of spinal cord compression and instability which may yet require surgical intervention. No surgical intervention is necessary at this time. - Monitor LFTs - Supportive care - Oxycodone 5mg Q6H scheduled and PRN Dilaudid - Diet as tolerated - Constipation precautions - DVT prophylaxis with Lovenox (2) Personal history of malignant neoplasm of breast Status: Chronic Plan: - See above. Assessment and Plan Patient examined. Assessment and plan formulated with Shreya Gonzalez PA-C. I agree with the above. Shreya Gonzalez Nov 15, 2016 08:49 Mauricio Figueroa DO Nov 17, 2016 10:24
[2016-11-15] MEDS ORDERED: PAMIDRONATE INJ 90 MG in SODIUM CHLORID 0.9% 500 ML INJ 500 ML IV ONE (09:00)
[2016-11-15] MEDS: SODIUM CHLORIDE 0.9% FLUSH 10 ML FLUSH IV FLUSH SCH ×2 (09:42→18:22)
[2016-11-15] MEDS: ENOXAPARIN SODIUM 40 MG/0.4 ML SYRINGE SQ SCH (09:42)
[2016-11-15] MEDS: DOCUSATE SODIUM 50 MG/SENNA 8.6 MG TAB PO SCH ×2 (09:42→17:57)
[2016-11-15 11:30] VITALS: BP 117/80; PULSE 82; RESP 20; TEMP 96.8; O2SAT 97
--- NOTE | 2016-11-15 15:56 | HHI.PR ---
Subjective Subjective Notes Ms. Reynoso is currently in radiation. I have her on the schedule tomorrow morning at 10 am for port placement. I spoke with her mother who was in her room and will likely speak with Ms. Reynoso tomorrow morning prior to the procedure. Saul,Jesus ISSA Nov 15, 2016 15:56
--- NOTE | 2016-11-15 16:28 | ECHRPT ---
Indication: SOB CONCLUSIONS Normal left ventricular size. Mild concentric left ventricular hypertrophy. The left ventricular systolic function is normal with an estimated ejection fraction of 65%. No regional wall motion abnormalities are present. The estimated pulmonary arterial pressure is 21 mmHg. BP: 138 / 80 HR: 86 Rhythm: Sinus MEASUREMENTS (Male / Female) Normal Values Technical Quality:Technically difficult study 2D ECHO LV Diastolic Diameter PLAX 3.7 cm 4.2 - 5.9 / 3.9 - 5.3 cm LV Systolic Diameter PLAX 2.6 cm IVS Diastolic Thickness 1.2 cm 0.6 - 1.0 / 0.6 - 0.9 cm LVPW Diastolic Thickness 0.9 cm 0.6 - 1.0 / 0.6 - 0.9 cm LV Relative Wall Thickness 0.6 RV Internal Dim ED PLAX 1.9 cm LA Systolic Diameter LX 3.3 cm 3.0 - 4.0 / 2.7 - 3.8 cm LV Ejection Fraction MOD 4C 58.9 % LV Cardiac Index MOD 4C 1484.0 cm/minm LV Ejection Fraction 4C AL 60.7 % LV Cardiac Index 4C AL 1572.3 cm/minm M-MODE Aortic Root Diameter MM 3.0 cm AV Cusp Separation MM 1.8 cm DOPPLER MV Peak Velocity 86.8 cm/s MV Peak Gradient 3.0 mmHg MV Mean Velocity 44.7 cm/s MV Mean Gradient 1.0 mmHg Mitral E Point Velocity 53.8 cm/s Mitral A Point Velocity 74.5 cm/s Mitral E to A Ratio 0.7 LV E' Lateral Velocity 8.7 cm/s Mitral E to LV E' Lateral Ratio 6.2 LV E' Septal Velocity 4.4 cm/s Mitral E to LV E' Septal Ratio 12.1 TR Peak Velocity 231.0 cm/s TR Peak Gradient 21.3 mmHg FINDINGS LEFT VENTRICLE Normal left ventricular size. Mild concentric left ventricular hypertrophy. The left ventricular systolic function is normal with an estimated ejection fraction of 65%. No regional wall motion abnormalities are present. RIGHT VENTRICLE Normal right ventricular size and systolic function. LEFT ATRIUM The left atrial size is normal. RIGHT ATRIUM The right atrial size is normal. ATRIAL SEPTUM Normal atrial septal thickness without atrial level shunting by limited color doppler interrogation. AORTA The aortic root and proximal ascending aorta are normal in size on limited imaging. MITRAL VALVE Structurally normal mitral valve. No mitral valve stenosis or regurgitation. AORTIC VALVE Trileaflet aortic valve. No aortic valve stenosis or regurgitation. TRICUSPID VALVE The estimated pulmonary arterial pressure is 21 mmHg. PULMONARY VALVE The pulmonary valve is not well visualized. VESSELS The inferior vena cava is normal in size. PERICARDIUM No pericardial effusion. Marly Menjivar MD, FACC (Electronically Signed) Final Date:15 November 2016 16:27
[2016-11-15 20:00] VITALS: BP 123/78; PULSE 92; RESP 18; TEMP 97
[2016-11-16] VITALS (7 sets, daily range): BP systolic 107–123; BP diastolic 72–84; PULSE 88–112; RESP 16–20; TEMP 96.4–100.4; O2SAT 92–99
--- NOTE | 2016-11-16 08:42 | HHI.PR ---
Subjective Remarks Port placement cancelled due to pt running fever this morning. Tmax 100.4 at 0515 this morning Pt reports some dysuria and a slight dry cough She had a BM yesterday Back pain is better controlled. Objective Vitals Vital Signs Date Time Temp Pulse Resp B/P Pulse Ox O2 Delivery O2 Flow Rate FiO2 11/16/16 06:31 16 11/16/16 05:15 100.4 110 18 110/72 92 11/16/16 00:00 99.6 97 16 123/80 95 11/15/16 20:00 97.0 92 18 123/78 11/15/16 11:30 96.8 82 20 117/80 97 11/15/16 11/15/16 11/16/16 15:00 23:00 07:00 Intake Total 540 ml 480 ml Balance 540 ml 480 ml Intake Oral 540 ml 480 ml # Voids 2 2 1 # Bowel Movements 0 Result Diagram: 11/14/16 0555 11/14/16 0555 Imaging Last Impressions Liver Biopsy CT 11/13/16 0000 Signed Impressions: Service Date/Time: Sunday, November 13, 2016 12:48 - CONCLUSION: Uncomplicated CT guided biopsy. Pathology is pending. 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 - Outpt Liver US revealed masses in the liver. - Outpt CT Abd/pelvis --> Extensive and very large masses involving the liver, destructive jessica lesions and pulmonary nodules. - Pt was seen by Dr. Aggarwal as an outpt on 11/10 and found to have elevated LFTs and was recommended to go to the ED at that time but declined at that time and actually reported to the ED on 11/12. - Pt underwent CT Guided liver biopsy on 11/13 - Pathology --> Poorly differentiated adenocarcinoma and suggests metastatic breast cancer - CT Chest (11/13/16) --> Numerous large masses throughout the liver consistent with metastatic disease. Several areas of bony metastatic disease, most concerning lesion at the left T10 level causing erosion of the pedicle and extending into the transverse process and base of the spinous process. This also erodes into the left side of the spinal canal and abuts the thecal sac. Development of several small pulmonary nodules, the largest only measure 6mm. - Oncology is following. - CEA elevated at 16.9, CA 15-3 elevated at 1190.8 and CA 19-9 is less than 1.2 - Radiation oncology has evaluated the pt and is planning for palliative XRT - Appreciate Neurosurgery evaluation, They felt that initial treatment with radiation therapy would be reasonable for this patient. She was advised by Neurosurgery that there is a risk of progression of the lesion with development of spinal cord compression and instability which may yet require surgical intervention. No surgical intervention is necessary at this time. - Pt developed low grade fever early this morning and surgery for port placement was cancelled. - Check Blood cultures, recheck labs today, CXR, UA - Supportive care - Oxycodone 5mg Q6H scheduled and PRN Dilaudid - Diet as tolerated - Constipation precautions - DVT prophylaxis with Lovenox (2) Personal history of malignant neoplasm of breast Status: Chronic Plan: - See above. Assessment and Plan Patient examined. Assessment and plan formulated with Shreya Gonzalez PA-C. I agree with the above. Shreya Gonzalez Nov 16, 2016 08:42 Mauricio Figueroa DO Nov 17, 2016 10:25
[2016-11-16] MEDS: SODIUM CHLORIDE 0.9% FLUSH 10 ML FLUSH IV FLUSH SCH ×2 (09:00→20:13)
--- NOTE | 2016-11-16 09:26 | RADRPT ---
EXAM DATE/TIME: 11/16/2016 08:40 [facility] COMPARISON: CT THORAX W/O CONTRAST, November 13, 2016, 12:34. INDICATIONS : Fever, shortness of breath. MEDICAL HISTORY : Carcinoma, breast. SURGICAL HISTORY : Mastectomy, left. Mastectomy, right. ENCOUNTER: Subsequent ACUITY: 3 days PAIN SCORE: 0/10 LOCATION: Bilateral chest FINDINGS: Underinflated AP view of the chest demonstrates a normal-sized cardiac silhouette. There are linear o pacities at the lung bases with elevation of the right hemidiaphragm. No effusion, consolidation, or pneumothorax is identified. The pulmonary nodules identified on prior CT are too small to visualize b y x-ray. CONCLUSION: Underinflation with elevated right hemidiaphragm and atelectasis at the lung bases. Otherwise, no acu te finding is identified. Theodore Butler MD on November 16, 2016 at 9:22 Board Certified Radiologist. This report was verified electronically.
[2016-11-16] MEDS ORDERED: IBUPROFEN 400 MG TAB PO ONE (09:30)
[2016-11-16 09:47] LABS: BLOOD, URINE NEG (NEG); COMMENT (UR) CULT NOT INDICATED; CULTURE IF INDICATED CULT NOT INDICATED; GLUCOSE,URINE NEG (NEG); KETONE, URINE 10 mg/dL (NEG); MUCUS URINE FEW /lpf (OCC); NITRITE,URINE NEG (NEG); PH, URINE 5.5 (5.0-8.5); SQUAMOUS EPITHELIAL CELL URINE 3 /hpf (0-5)
[2016-11-16 09:51] LABS: URINE COLOR ORANGE (YELLW/STRAW)
[2016-11-16] MEDS: DOCUSATE SODIUM 50 MG/SENNA 8.6 MG TAB PO SCH ×2 (10:13→20:13)
--- NOTE | 2016-11-16 10:22 | HHI.NSPN ---
History Chief Complaint: Headache Interval History 11/14: 51-year-old female with history of high-grade ductal carcinoma of the breast diagnosed in 2014 and treated with modified radical mastectomy. She complains of 3 or 4 weeks of progressive right greater than left flank pain with radiation to the right greater than left gluteal region and proximal thigh. A CT scan of the chest and abdomen completed last week revealed a large liver mass with distractive metastatic lesions in the thoracic spine with positive pulmonary nodules. She presented to the emergency room 11/13/16 due to intractable pain. She denies any significant pain weakness numbness or paresthesias in the upper or lower extremities. She complains of constipation but no bladder dysfunction. 11/16: The patient is doing well this morning when seen. She reports a fever this morning and does have a headache but denies any back pain. Her pain medication does control the pain. She did have some nausea earlier that has since resolved after drinking some fluids. System Review Comments Constitutional: Patient does complain of fever this morning. HEENT: Patient denies any vision or hearing problems. Respiratory: Patient denies any shortness of breath or productive cough. Cardiovascular: Patient denies any chest pain, palpitations or irregular heartbeat. Gastrointestinal: Patient did have some nausea this morning which resolved after drinking some fluids. She denies any abdominal pain, vomiting or incontinence of stool. Genitourinary: Patient denies any incontinence of urine. Musculoskeletal: Patient denies any back pain or any pain or weakness to the extremities. Neurologic: Patient complains of a frontal headache this morning. She denies any dizziness, numbness or tingling. Exam Results Vital Signs Date Time Temp Pulse Resp B/P Pulse Ox O2 Delivery O2 Flow Rate FiO2 11/16/16 08:47 100.1 112 20 107/79 94 11/12/16 19:15 Room Air Intake and Output 11/15/16 11/15/16 11/16/16 08:00 16:00 00:00 Intake Total 120 ml 540 ml 480 ml Balance 120 ml 540 ml 480 ml Physical Examination GENERAL: Patient awake & alert, readily interacts, slightly flat affect, no apparent distress. SKIN: Skin warm, dry & intact, no evident discolouration, rashes or lesions. HEENT: Normocephalic, atraumatic. NECK: Midline cervical spine NTTP, active FROM, no JVD, trachea midline. RESPIRATORY: CTAB w/o W/R/R, equal excursion, nonlaboured, on RA. CARDIOVASCULAR: S1S2 w/fast but regular rate w/o M/G/R, radial & pedal pulses 2 + bilaterally, cap refill < 2 sec, no pedal edema. GASTROINTESTINAL: Abdomen soft, nontender, positive bowel sounds. MUSCULOSKELETAL: MCLAIN w/o difficulty, nontender, no evident deformity or clubbing. Midline thoracolumbar spine minimally TTP, no paraspinal tenderness. NEUROLOGICAL: AAOx3 Speech clear & appropriate Follows simple command w/o difficulty Sensation intact to light touch to all extremities Motor strength 5/5 to all major flexion & extension muscle groups Medical Decision Making Impression and Plan Impression: 1. Metastatic lesion to T10 pedicle and lamina with mild impingement on the spinal canal in patient with history of high-grade ductal carcinoma of the breast. Presently no evidence of thoracic myelopathy on the basis of imaging study, symptoms or examination. Plan: Discussed plan of care with patient & family Radiation therapy to T10 lesion per Radiation Oncology No bending, reaching, excessive twisting, heavy lifting or other strenuous activity Plan for follow up in the office in 10-14 days Will intermittently follow in hospital at present Pepe José Nov 16, 2016 10:22
[2016-11-16 11:25] LABS: AUTOMATED NEUTROPHIL # 5.8 TH/MM3 (1.8-7.7); BASOPHIL % 0.6 % (0.0-2.0); EOSINOPHIL % 0.1 % (0.0-4.0); HEMATOCRIT 44.4 % (35.0-46.0); HEMO FLAGS DIFF FINAL; LYMPH % 5.2 % (9.0-44.0); LYMPHOCYTE # 0.3 TH/MM3 (1.0-4.8); MEAN CELL VOLUME 91.3 FL (80.0-100.0); MEAN CORPUSCULAR HEMOGLOBIN 30.2 PG (27.0-34.0); MEAN CORPUSCULAR HGB CONC 33.1 % (32.0-36.0); MONO % 2.8 % (0.0-8.0); NEUT % 91.3 % (16.0-70.0); PLATELET COUNT 291 TH/MM3 (150-450); RED BLOOD COUNT 4.86 MIL/MM3 (4.00-5.30); RED CELL DISTRIBUTION WIDTH 15.3 % (11.6-17.2); WHITE BLOOD COUNT 6.4 TH/MM3 (4.0-11.0)
[2016-11-16 11:49] LABS: BICARBONATE 25.4 MEQ/L (21.0-32.0); MAGNESIUM 2.2 MG/DL (1.5-2.5)
--- NOTE | 2016-11-16 15:18 | MB ---
cc: EDDIE WELLS MD DATE OF CONSULTATION: 11/16/2016 REASON FOR CONSULTATION: Need for [id number]. HISTORY OF PRESENT ILLNESS This is a 51-year-old female who underwent lumpectomy followed by bilateral mastectomy with reconstruction by Dr. 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 Mrs. Reynoso had an outpatient CT abdomen and pelvis oncology, because of complaints of abdominal pain which showed a liver mass, as well. She also was noted to have four bony metastases. The patient has been seen by neurosurgery and at this time she does not require neurosurgical intervention. She is undergoing palliative radiation to the thoracic spine. There are plans to undergo chemotherapy and port placement has been requested. PAST MEDICAL HISTORY: Includes the meningioma of the brain left breast cancer. PAST SURGICAL HISTORY 1. Bilateral mastectomies 2. Lumpectomy 3. Hysterectomy HOME MEDICATIONS: Vitamin D. ALLERGIES NO KNOWN DRUG ALLERGIES FAMILY HISTORY Her mother had breast carcinoma at age 55. SOCIAL HISTORY She is . She is a nonsmoker, no heavy alcohol use. REVIEW OF SYSTEMS She does complain of back pain, fatigue and weakness. Otherwise negative except as mentioned in the history of present illness. PHYSICAL EXAMINATION: GENERAL: Pleasant 51-year-old female not in distress. VITAL SIGNS: Temperature 97.7, heart rate 98, respirations 20, blood pressure 113/84. HEAD, EYES, EARS, NOSE, AND THROAT: Normocephalic and atraumatic. Eyes: Pupils equal, react to light bilaterally. LUNGS: Clear to auscultation bilaterally. CARDIOVASCULAR SYSTEM: Mild sinus tachycardia. SKIN: Warm, dry, non jaundiced. LABORATORY DATA Her white blood count 6.4, hemoglobin 14.7, platelets 291, INR on 11/12 was 1.0. ASSESSMENT/PLAN 51-year-old female with an invasive ductal carcinoma of the breast metastatic to the liver and the spine. She is in need an [id number] placement. PLAN Our plan is to place the Rudqzo-H-[id number] today. However, she did have a fever of 100.4 and is undergoing workup for the fever. She is currently afebrile and she remains afebrile for at least 24 hours. I will likely be able to do the port tomorrow. MD AYAD Ricci/tisha /1:53 PM /2:43 PM
[2016-11-17] VITALS (7 sets, daily range): BP systolic 105–124; BP diastolic 66–83; PULSE 80–91; RESP 16–18; TEMP 96–98.2; O2SAT 95–100
--- NOTE | 2016-11-17 09:08 | PD.ONC.PN ---
Subjective Subjective Remarks Patient seen and examined, overall patient reports feeling more comfortable with pain control, and has been eating better. She is nothing by mouth at this time in anticipation for infusion port placement later today. She will be started on palliative radiation to the thoracic vertebral bodies involved with metastatic disease later today. HER-2 amplification studies on metastatic breast carcinoma tissue is pending at this time (I just spoke to pathology this morning), results not expected until early next week. Objective Data Date Time Temp Pulse Resp B/P Pulse Ox O2 Delivery O2 Flow Rate FiO2 11/17/16 08:00 97.4 80 18 105/66 95 11/17/16 04:03 97.8 91 16 124/83 98 11/17/16 00:04 98.2 90 16 120/80 98 11/16/16 20:03 96.4 94 16 117/74 96 11/16/16 16:00 96.5 88 18 117/75 95 11/16/16 12:13 97.7 98 20 113/84 99 Result Diagram: 11/16/16 1044 11/16/16 1044 Laboratory Results Laboratory Tests Test 11/16/16 11/16/16 09:30 10:44 Urine Color ORANGE Urine Turbidity CLEAR Urine pH 5.5 Urine Specific [place] 1.021 Urine Protein TRACE mg/dL Urine Glucose (UA) NEG mg/dL Urine Ketones 10 mg/dL Urine Occult Blood NEG Urine Nitrite NEG Urine Bilirubin SMALL Urine Urobilinogen 2.0 MG/DL Urine Leukocyte Esterase TRACE Urine RBC LESS THAN 1 /hpf Urine WBC 3 /hpf Urine Squamous Epithelial 3 /hpf Cells Urine Mucus FEW /lpf Microscopic Urinalysis Comment CULT NOT INDICATED White Blood Count 6.4 TH/MM3 Red Blood Count 4.86 MIL/MM3 Hemoglobin 14.7 GM/DL Hematocrit 44.4 % Mean Corpuscular Volume 91.3 FL Mean Corpuscular Hemoglobin 30.2 PG Mean Corpuscular Hemoglobin 33.1 % Concent Red Cell Distribution Width 15.3 % Platelet Count 291 TH/MM3 Mean Platelet Volume 8.5 FL Neutrophils (%) (Auto) 91.3 % Lymphocytes (%) (Auto) 5.2 % Monocytes (%) (Auto) 2.8 % Eosinophils (%) (Auto) 0.1 % Basophils (%) (Auto) 0.6 % Neutrophils # (Auto) 5.8 TH/MM3 Lymphocytes # (Auto) 0.3 TH/MM3 Monocytes # (Auto) 0.2 TH/MM3 Eosinophils # (Auto) 0.0 TH/MM3 Basophils # (Auto) 0.0 TH/MM3 CBC Comment DIFF FINAL Differential Comment Sodium Level 136 MEQ/L Potassium Level 4.0 MEQ/L Chloride Level 100 MEQ/L Carbon Dioxide Level 25.4 MEQ/L Anion Gap 11 MEQ/L Blood Urea Nitrogen 10 MG/DL Creatinine 0.92 MG/DL Estimat Glomerular Filtration 78 ML/MIN Rate Random Glucose 133 MG/DL Calcium Level 9.6 MG/DL Magnesium Level 2.2 MG/DL Culture Results Microbiology Date/Time Procedure Status Source Growth 11/16/16 10:44 Aerobic Blood Culture Received Blood Peripheral Pending 11/16/16 10:44 Anaerobic Blood Culture Received Blood Peripheral Pending 11/16/16 10:44 Aerobic Blood Culture Received Blood Peripheral Pending 11/16/16 10:44 Anaerobic Blood Culture Received Blood Peripheral Pending Administered Medications Medications (Trade) Dose Ordered Sig/Jason Route PRN Reason Start Time Stop Time Status Last Admin Dose Admin Sodium Chloride (NS Flush) 2 ml BID IV FLUSH 11/12/16 21:00 11/16/16 20:13 Hydromorphone HCl (Dilaudid Pf Inj) 0.5 mg Q4H PRN IV pain 5-10 11/12/16 18:30 11/15/16 01:21 Senna/Docusate Sodium (Aviva-Colace) 1 tab BID PO 11/12/16 21:00 11/16/16 20:13 Oxycodone HCl (Roxicodone) 5 mg Q6H PO 11/13/16 17:00 11/17/16 05:09 Enoxaparin Sodium (Lovenox Inj) 40 mg Q24H SQ 11/14/16 08:30 Hold 11/15/16 09:42 Objective Remarks GENERAL PHYSICAL APPEARANCE: Ms. Reynoso is a very pleasant middle-aged female, she is of medium height and moderate build, appears to be in no acute distress and has a pleasant disposition. HEENT: Head is atraumatic, normocephalic, conjunctivae are pale, sclerae are mildly icteric, EOMI, PERRLA. ORAL EXAM: No pharyngeal erythema. NECK: No palpable cervical or supraclavicular lymphadenopathy. RESPIRATORY EXAM: Good air movement bilaterally. No added breath sounds. CARDIOVASCULAR: Regular rate and rhythm, S1-S2. No obvious murmurs, rubs or gallops. ABDOMEN: Protuberant belly, soft, tender over the upper quadrants, hepatomegaly is palpable. No other organ enlargement noted. LOWER EXTREMITIES: No pretibial edema. No calf tenderness. 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 She was diagnosed about 3 years ago and underwent surgical resection; skin sparing left breast mastectomy with sentinel lymph node biopsy along with prophylactic right breast modified radical mastectomy with skin and nipple sparing. Now presents with extensive metastatic disease to the liver as well as extensive metastatic disease to the axial bony skeleton. Liver biopsy indicates findings consistent with metastatic carcinoma of breast primary; positive for estrogen receptor expression and mammoglobin. She is in a visceral crisis given the extensive liver involvement. Additionally she has disease involving the T10 vertebral body with resultant nerve impingement and resultant pain. Plan 1. Metastatic carcinoma of breast primary positive for estrogen receptor expression. I will start her on an aromatase inhibitor today with anastrozole. I will request a HER-2 amplification testing on her liver biopsy. Echocardiogram indicated normal cardiac function with LVEF of 65%. 2. Infusion port placement later today. 3. Status post pamidronate infusion earlier this week. 4. Metastatic disease to the T10 vertebral body palliative radiation to start later today. Disposition: Her hepatic function appears to be stable, once her port is placed in her pain is controlled reasonably well with oral analgesics/opioids. She may be discharged home with oral anastrozole until I see her in clinic the following week. By then I anticipate we will know the results of her HER-2 amplification studies and will be able to decide appropriate first-line systemic therapy to debulk her disease. Tobias Aggarwal MD Nov 17, 2016 09:07
[2016-11-17] MEDS: SODIUM CHLORIDE 0.9% FLUSH 10 ML FLUSH IV FLUSH SCH ×2 (09:48→21:00)
[2016-11-17] MEDS: DOCUSATE SODIUM 50 MG/SENNA 8.6 MG TAB PO SCH ×2 (09:48→22:59)
[2016-11-17] MEDS ORDERED: HEPARIN SODIUM - IV 10,000 UNITS/10 ML VIAL ONE (09:53)
[2016-11-17] MEDS ORDERED: BUPIVACAINE/EPINEPHRINE 0.5% PF 30 ML VIAL ONE (09:55)
[2016-11-17] MEDS ORDERED: LIDOCAINE 1%/EPINEPHrine 1:100,000 SOLN 20 ML VIAL ONE (09:56)
--- NOTE | 2016-11-17 10:01 | HHI.PR ---
Subjective Remarks Pt reports that her pain in her back was increased today She has been afebrile since yesterday She had a BM yesterday. Objective Vitals Vital Signs Date Time Temp Pulse Resp B/P Pulse Ox O2 Delivery O2 Flow Rate FiO2 11/17/16 08:00 97.4 80 18 105/66 95 11/17/16 04:03 97.8 91 16 124/83 98 11/17/16 00:04 98.2 90 16 120/80 98 11/16/16 20:03 96.4 94 16 117/74 96 11/16/16 16:00 96.5 88 18 117/75 95 11/16/16 12:13 97.7 98 20 113/84 99 11/16/16 11/16/16 11/17/16 15:00 23:00 07:00 Intake Total 600 ml 480 ml Balance 600 ml 480 ml Intake Oral 600 ml 480 ml # Voids 2 1 1 # Bowel Movements 1 Result Diagram: 11/16/16 1044 11/16/16 1044 Other Results Laboratory Tests Test 11/16/16 11/16/16 09:30 10:44 Urine Color ORANGE Urine Turbidity CLEAR Urine pH 5.5 Urine Specific [place] 1.021 Urine Protein TRACE mg/dL Urine Glucose (UA) NEG mg/dL Urine Ketones 10 mg/dL Urine Occult Blood NEG Urine Nitrite NEG Urine Bilirubin SMALL Urine Urobilinogen 2.0 MG/DL Urine Leukocyte Esterase TRACE Urine RBC LESS THAN 1 /hpf Urine WBC 3 /hpf Urine Squamous Epithelial 3 /hpf Cells Urine Mucus FEW /lpf Microscopic Urinalysis Comment CULT NOT INDICATED White Blood Count 6.4 TH/MM3 Red Blood Count 4.86 MIL/MM3 Hemoglobin 14.7 GM/DL Hematocrit 44.4 % Mean Corpuscular Volume 91.3 FL Mean Corpuscular Hemoglobin 30.2 PG Mean Corpuscular Hemoglobin 33.1 % Concent Red Cell Distribution Width 15.3 % Platelet Count 291 TH/MM3 Mean Platelet Volume 8.5 FL Neutrophils (%) (Auto) 91.3 % Lymphocytes (%) (Auto) 5.2 % Monocytes (%) (Auto) 2.8 % Eosinophils (%) (Auto) 0.1 % Basophils (%) (Auto) 0.6 % Neutrophils # (Auto) 5.8 TH/MM3 Lymphocytes # (Auto) 0.3 TH/MM3 Monocytes # (Auto) 0.2 TH/MM3 Eosinophils # (Auto) 0.0 TH/MM3 Basophils # (Auto) 0.0 TH/MM3 CBC Comment DIFF FINAL Differential Comment Sodium Level 136 MEQ/L Potassium Level 4.0 MEQ/L Chloride Level 100 MEQ/L Carbon Dioxide Level 25.4 MEQ/L Anion Gap 11 MEQ/L Blood Urea Nitrogen 10 MG/DL Creatinine 0.92 MG/DL Estimat Glomerular Filtration 78 ML/MIN Rate Random Glucose 133 MG/DL Calcium Level 9.6 MG/DL Magnesium Level 2.2 MG/DL Imaging Last Impressions Liver Biopsy CT 11/13/16 0000 Signed Impressions: Service Date/Time: Sunday, November 13, 2016 12:48 - CONCLUSION: Uncomplicated CT guided biopsy. Pathology is pending. 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 - Outpt Liver US revealed masses in the liver. - Outpt CT Abd/pelvis --> Extensive and very large masses involving the liver, destructive jessica lesions and pulmonary nodules. - Pt was seen by Dr. Aggarwal as an outpt on 11/10 and found to have elevated LFTs and was recommended to go to the ED at that time but declined at that time and actually reported to the ED on 11/12. - Pt underwent CT Guided liver biopsy on 11/13 - Pathology --> Poorly differentiated adenocarcinoma and suggests metastatic breast cancer - CT Chest (11/13/16) --> Numerous large masses throughout the liver consistent with metastatic disease. Several areas of bony metastatic disease, most concerning lesion at the left T10 level causing erosion of the pedicle and extending into the transverse process and base of the spinous process. This also erodes into the left side of the spinal canal and abuts the thecal sac. Development of several small pulmonary nodules, the largest only measure 6mm. - Oncology is following. - CEA elevated at 16.9, CA 15-3 elevated at 1190.8 and CA 19-9 is less than 1.2 - Radiation oncology has evaluated the pt and is planning for palliative XRT today - HER-2 amplification studies on metastatic breast carcinoma tissue is pending at this time to determine chemo regimen - Appreciate Neurosurgery evaluation, They felt that initial treatment with radiation therapy would be reasonable for this patient. She was advised by Neurosurgery that there is a risk of progression of the lesion with development of spinal cord compression and instability which may yet require surgical intervention. No surgical intervention is necessary at this time. - Pt developed low grade fever on 11/16 and surgery for port placement was cancelled. She has been afebrile since 11/16 - Blood cultures with NGTD - CXR is negative. UA is negative. - Supportive care - Oxycodone 5mg Q6H scheduled and PRN Dilaudid - Diet as tolerated - Constipation precautions - DVT prophylaxis with Lovenox (2) Personal history of malignant neoplasm of breast Status: Chronic Plan: - See above. Assessment and Plan Patient examined. Assessment and plan formulated with Shreya Gonzalez PA-C. I agree with the above. Shreya Gonzalez Nov 17, 2016 10:01 Mauricio Figueroa DO Nov 17, 2016 10:25
[2016-11-17] MEDS ORDERED: SODIUM BICARBONATE 8.4% INJ 50 MEQ/50 ML SYR ONE (10:07)
[2016-11-17] MEDS ORDERED: HYDROmorphone HCL PF 1 MG/ML VIAL IV PUSH PRN (10:30)
[2016-11-17] MEDS ORDERED: PROPOFOL 200 MG/20 ML AMP IV ONE (12:00)
[2016-11-17] MEDS ORDERED: SODIUM CHLORIDE 0.9% 20 ML VIAL ONE (12:45)
[2016-11-17] MEDS ORDERED: MIDAZOLAM HCL 2 MG/2 ML VIAL ONE (12:58)
--- NOTE | 2016-11-17 13:26 | PD.OP ---
cc: Jesus Hughes MD; Tobias Aggarwal MD Operative Report Date of Surgery: Nov 17, 2016 Preoperative Diagnosis: (1) Metastatic breast cancer Postoperative Diagnosis: (1) Metastatic breast cancer Procedure: Left subclavian infusaport placement Anesthesia: MAC Surgeon: Jesus Hughes Weed Eradicator(s): Darin MONTES Operation and Findings: Complications: None EBL: 10 cc Operative findings: Uncomplicated placement of left subclavian Xcela power injectable port at 21 cm. Procedure in detail: The patient was taken to the operating room and placed in supine position. MAC anesthesia was induced. The upper chest and neck was prepped and draped in usual sterile fashion and a surgical timeout was performed to verify correct patient procedure and site. Appropriate preoperative antibiotics were administered. The patient was placed in mild Trendelenburg position. A mixture of lidocaine and marcaine with epinephrine was injected in the skin and subcutaneous tissue in the left upper chest. The left subclavian vein was cannulated with the large-bore needle. The wire was easily advanced and visualized with fluoroscopy. An approximately 3 cm transverse incision was made and a port pocket created by blunt dissection and the use of Metzenbaum scissors. The dilator and sheath were inserted under fluoroscopic visualization. The wire and dilator were then removed. The catheter length was chosen based on fluoroscopy and it was cut to 21 cm. The port and catheter were connected and the catheter then inserted. The port was placed in the port pocket. The Beach needle was used to access the port with blood return and it flushed easily. The incision was closed with 3-0 subcutaneous Vicryl sutures and the skin with subcuticular 4-0 Monocryl as well as Dermabond. A dressing was applied. The patient tolerated the procedure well. Jesus Hughes MD Nov 17, 2016 13:26
[2016-11-17] MEDS ORDERED: DO NOT ADM ANY ANTICOAGULANT DRUGS PRN (14:45)
[2016-11-17] MEDS: ANASTROZOLE 1 MG TAB PO SCH (17:19)
--- NOTE | 2016-11-17 17:28 | RADRPT ---
EXAM DATE/TIME: 11/17/2016 13:05 [facility] COMPARISON: No previous studies available for comparison. PROCEDURE: 1. Fluoroscopy for [id number]-t-Buzt placement. FINDINGS: Port overlies the right atrium from the left side. CONCLUSION: 1. Single spot film reveals port tip overlying right atrium. Fahad Hearn MD on November 17, 2016 at 17:25 Board Certified Radiologist. This report was verified electronically.
--- NOTE | 2016-11-17 21:27 | RF ---
cc: TESS ARNETT MD,FANY GARCIA,SAMIA Renae MD F o l l o w u p R e p o r t DATE OF SERVICE: 11/15/2016 AGE: 51 SEX: F Ms. Reynoso is a 51-year-old female I am asked see as an inpatient. She has received radiation therapy in the past by Dr. Payne. She has received radiation therapy to the brain. Total dose 50.4 cGy for a meningioma. She has a history of breast cancer as well. She has new back pain. Most recent pathology was obtained 11/13/2016. The biopsy demonstrated poorly differentiated adenocarcinoma of the liver. She has a history of left breast cancer as well as hysterectomy, a meningioma and a left lumpectomy. Findings are consistent with metastatic breast cancer. She has significant pain. CT spine demonstrates involvement of a T10 lesion. She has pain in that area. She also has an area noted at T10-T12 with a main area of a large bone lesion involving the left pedicle of T10 approximately 2.5 x 1.6 cm extending to the left lateral aspect of the spinal canal. She comes in today. She is an inpatient. We discussed palliative radiation therapy to the spine. She also has numerous large masses in the liver consistent with metastatic disease. She has been seen by Dr. Aggarwal as well inpatient. She does report least two to three weeks of the back discomfort. She was diagnosed with ductal carcinoma in situ with microinvasion foci in 2013. She underwent surgery at that time and then an observation and is now again with new lesions. PAST MEDICAL HISTORY: 1. Care for a meningioma with radiotherapy. 2. DCIS left breast and microinvasion ductal breast in 2013. PAST SURGICAL HISTORY: 1. Breast biopsy. 2. Hysterectomy. 3. Lumpectomy. 4. Mastectomy. 5. Plastic surgery. 6. Tubal ligation. 7. Partial hysterectomy. FAMILY HISTORY: No first-degree relatives with malignancy. She has four children. SOCIAL HISTORY: She is . Her is present. GYNECOLOGIC HISTORY: 5, para 4. Menopause at age 41. ALLERGIES: NO KNOWN DRUG ALLERGIES. MEDICATIONS: Vitamin D. REVIEW OF SYSTEMS: CONSTITUTIONAL: Reports some discomfort in the spine, decreased appetite. EYES: Denies double vision. EARS, NOSE, MOUTH AND THROAT: swelling sore throat. Denies shortness breath, cough, urinary frequency, hesitancy, burning. She does report back pain. Denies headaches, seizures, weakness. PHYSICAL EXAMINATION: GENERAL: A pleasant female. EYES: Extraocular muscles intact. No scleral icterus. EXTREMITIES: No clubbing, cyanosis or edema. NEUROLOGIC: Alert and oriented, able to follow two-step commands. EXTREMITIES: No cyanosis, clubbing or edema. SKIN: No rash. IMAGING STUDIES: CT chest demonstrates a lesion T10 with bone destruction. CT abdomen demonstrates liver metastases. IMPRESSION: Ms. Reynoso is a female with likely recurrent metastatic breast cancer. RECOMMENDATIONS: I discussed palliative radiation therapy to the spine. We discussed the potential toxicities, pain on swallowing, sore throat, fatigue, the likely role for systemic chemotherapy after we complete radiotherapy. We discussed a short ten-day course. I could consider SBRT in the future if she has less good response. At this time, due to the proximity to the spinal cord and thecal sac, recommend a ten-day course. We will schedule her for CT simulation today. Complex blocks will be done. Consent obtained. agreeable to this approach. Will plan treatment first treatment in a day or two due to the significant discomfort. Samia Garcia MD Radiation Oncologist SHAE/JULI /4:14 PM /9:17 PM
[2016-11-18] VITALS: BP 121/81; PULSE 79; RESP 18; TEMP 97.5; O2SAT 99
[2016-11-18 04:00] VITALS: BP 114/74; PULSE 84; RESP 18; TEMP 97.5; O2SAT 100
[2016-11-18] MEDS: ANASTROZOLE 1 MG TAB PO SCH (08:09)
[2016-11-18] MEDS: DOCUSATE SODIUM 50 MG/SENNA 8.6 MG TAB PO SCH ×2 (08:09→21:55)
[2016-11-18] MEDS: SODIUM CHLORIDE 0.9% FLUSH 10 ML FLUSH IV FLUSH SCH ×2 (08:13→21:55)
[2016-11-18 08:27] LABS: AUTOMATED NEUTROPHIL # 3.5 TH/MM3 (1.8-7.7); BASOPHIL % 0.7 % (0.0-2.0); EOSINOPHIL # 0.1 TH/MM3 (0-0.4); EOSINOPHIL % 2.2 % (0.0-4.0); HEMATOCRIT 41.8 % (35.0-46.0); HEMO FLAGS DIFF FINAL; LYMPH % 14.8 % (9.0-44.0); LYMPHOCYTE # 0.8 TH/MM3 (1.0-4.8); MEAN CELL VOLUME 91.8 FL (80.0-100.0); MEAN CORPUSCULAR HEMOGLOBIN 30.1 PG (27.0-34.0); MEAN CORPUSCULAR HGB CONC 32.8 % (32.0-36.0); NEUT % 66.3 % (16.0-70.0); PLATELET COUNT 256 TH/MM3 (150-450); RED BLOOD COUNT 4.56 MIL/MM3 (4.00-5.30); RED CELL DISTRIBUTION WIDTH 15.4 % (11.6-17.2); WHITE BLOOD COUNT 5.3 TH/MM3 (4.0-11.0)
[2016-11-18 08:54] VITALS: BP 120/79; PULSE 80; RESP 20; TEMP 97.1; O2SAT 98
[2016-11-18 08:55] LABS: MAGNESIUM 2.3 MG/DL (1.5-2.5); POTASSIUM 3.9 MEQ/L (3.5-5.1)
--- NOTE | 2016-11-18 09:45 | PD.ONC.PN ---
Subjective Subjective Remarks Afebrile overnight. Patient tolerated radiation yesterday. Pain is controlled. Having bowel movements. Objective Data Date Time Temp Pulse Resp B/P Pulse Ox O2 Delivery O2 Flow Rate FiO2 11/18/16 08:54 97.1 80 20 120/79 98 11/18/16 04:00 97.5 84 18 114/74 100 11/18/16 00:00 97.5 79 18 121/81 99 11/17/16 23:59 16 11/17/16 20:00 96.0 81 18 122/78 100 11/17/16 16:00 97.6 86 18 111/72 97 11/17/16 14:10 97.8 80 15 110/66 97 Nasal Cannula 2 11/17/16 14:00 80 16 107/69 96 Nasal Cannula 2 11/17/16 13:45 80 16 110/74 96 Nasal Cannula 2 11/17/16 13:30 97.9 89 15 120/78 99 Nasal Cannula 2 11/17/16 11:00 98.0 89 18 121/77 95 11/17/16 10:25 98 Nasal Cannula 2.00 11/18/16 11/18/16 11/18/16 07:00 15:00 23:00 Intake Total 480 ml Balance 480 ml Result Diagram: 11/18/1630 11/18/16 0730 Laboratory Results Laboratory Tests Test 11/18/16 07:30 White Blood Count 5.3 TH/MM3 Red Blood Count 4.56 MIL/MM3 Hemoglobin 13.7 GM/DL Hematocrit 41.8 % Mean Corpuscular Volume 91.8 FL Mean Corpuscular Hemoglobin 30.1 PG Mean Corpuscular Hemoglobin 32.8 % Concent Red Cell Distribution Width 15.4 % Platelet Count 256 TH/MM3 Mean Platelet Volume 8.2 FL Neutrophils (%) (Auto) 66.3 % Lymphocytes (%) (Auto) 14.8 % Monocytes (%) (Auto) 16.0 % Eosinophils (%) (Auto) 2.2 % Basophils (%) (Auto) 0.7 % Neutrophils # (Auto) 3.5 TH/MM3 Lymphocytes # (Auto) 0.8 TH/MM3 Monocytes # (Auto) 0.8 TH/MM3 Eosinophils # (Auto) 0.1 TH/MM3 Basophils # (Auto) 0.0 TH/MM3 CBC Comment DIFF FINAL Differential Comment Sodium Level 137 MEQ/L Potassium Level 3.9 MEQ/L Chloride Level 102 MEQ/L Carbon Dioxide Level 27.0 MEQ/L Anion Gap 8 MEQ/L Blood Urea Nitrogen 9 MG/DL Creatinine 0.66 MG/DL Estimat Glomerular Filtration 115 ML/MIN Rate Random Glucose 70 MG/DL Calcium Level 8.7 MG/DL Magnesium Level 2.3 MG/DL Culture Results Microbiology Date/Time Procedure Status Source Growth 11/16/16 10:44 Aerobic Blood Culture - Preliminary Resulted Blood Peripheral NO GROWTH IN 1 DAY 11/16/16 10:44 Anaerobic Blood Culture - Preliminary Resulted Blood Peripheral NO GROWTH IN 1 DAY 11/16/16 10:44 Aerobic Blood Culture - Preliminary Resulted Blood Peripheral NO GROWTH IN 1 DAY 11/16/16 10:44 Anaerobic Blood Culture - Preliminary Resulted Blood Peripheral NO GROWTH IN 1 DAY Administered Medications Medications (Trade) Dose Ordered Sig/Jason Route PRN Reason Start Time Stop Time Status Last Admin Dose Admin Sodium Chloride (NS Flush) 2 ml BID IV FLUSH 11/12/16 21:00 11/18/16 08:13 Hydromorphone HCl (Dilaudid Pf Inj) 0.5 mg Q4H PRN IV pain 2-5 11/12/16 18:30 11/15/16 01:21 Senna/Docusate Sodium (Aviva-Colace) 1 tab BID PO 11/12/16 21:00 11/18/16 08:09 Oxycodone HCl (Roxicodone) 5 mg Q6H PO 11/13/16 17:00 11/18/16 05:17 Enoxaparin Sodium (Lovenox Inj) 40 mg Q24H SQ 11/14/16 08:30 Hold 11/15/16 09:42 Anastrozole (Arimidex) 1 mg DAILY PO 11/17/16 14:00 11/18/16 08:09 Objective Remarks GENERAL: Middle aged female, upright in bed in nad. SKIN: Warm and dry. HEAD: Normocephalic. EYES: No injection or drainage. NECK: Supple, trachea midline. CARDIOVASCULAR: Regular rate and rhythm RESPIRATORY: Breath sounds equal bilaterally. No accessory muscle use. GASTROINTESTINAL: Abdomen soft, non-tender, nondistended. EXTREMITIES: No cyanosis NEUROLOGICAL: awake and alert, normal speech. moving all extremities. 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 She was diagnosed about 3 years ago and underwent surgical resection; skin sparing left breast mastectomy with sentinel lymph node biopsy along with prophylactic right breast modified radical mastectomy with skin and nipple sparing. Now presents with extensive metastatic disease to the liver as well as extensive metastatic disease to the axial bony skeleton. Liver biopsy indicates findings consistent with metastatic carcinoma of breast primary; positive for estrogen receptor expression and mammoglobin. She is in a visceral crisis given the extensive liver involvement. Additionally she has disease involving the T10 vertebral body with resultant nerve impingement and resultant pain. Plan 1. Metastatic carcinoma of breast primary positive for estrogen receptor expression. started on Arimidex on 11/17. HER-2 requested through pathology. 2. Pain control: currently on Oxycodone 5mg PO q 6 hours and this seems to be controlling her pain. 3. T10 mets: tolerated XRT 4. clear for discharge. once discharged follow up in clinic with Dr. Aggarwal in 2 weeks. Attending Statement The exam, history, and the medical decision-making described in the above note were completed with the assistance of the mid-level provider. I reviewed and agree with the findings presented. I attest that I had a [id number] encounter with the patient on the same day, and personally performed and documented my assessment and findings in the medical record. Pt with metastatic breast cancer associated with pain. Continue current pain regimen. Discussed w/ Dr. Figueroa, anticipate DC tomorrow pending pain control. Pt started on AI, discussed mechanism of action. Dionna Ferrell Nov 18, 2016 09:45 Indira Pearce MD Nov 18, 2016 14:03 Indira Pearce MD Nov 18, 2016 14:03
--- NOTE | 2016-11-18 10:27 | HHI.PR ---
Subjective Remarks Pt started Radiation therapy 11/17 Pt had port placed 11/17 by general surgery Pt's pain is controlled. No new complaints. Objective Vitals Vital Signs Date Time Temp Pulse Resp B/P Pulse Ox O2 Delivery O2 Flow Rate FiO2 11/18/16 08:54 97.1 80 20 120/79 98 11/18/16 04:00 97.5 84 18 114/74 100 11/18/16 00:00 97.5 79 18 121/81 99 11/17/16 23:59 16 11/17/16 20:00 96.0 81 18 122/78 100 11/17/16 16:00 97.6 86 18 111/72 97 11/17/16 14:10 97.8 80 15 110/66 97 Nasal Cannula 2 11/17/16 14:00 80 16 107/69 96 Nasal Cannula 2 11/17/16 13:45 80 16 110/74 96 Nasal Cannula 2 11/17/16 13:30 97.9 89 15 120/78 99 Nasal Cannula 2 11/17/16 11:00 98.0 89 18 121/77 95 11/17/16 10:25 98 Nasal Cannula 2.00 11/17/16 11/17/16 11/18/16 15:00 23:00 07:00 Intake Total 500 ml 120 ml 480 ml Output Total 5 ml Balance 495 ml 120 ml 480 ml Intake Oral 0 ml 120 ml 480 ml IV Total 100 ml Other 400 ml Output Urine Total 0 ml Estimated Blood Loss 5 ml # Voids 2 # Bowel Movements 0 Result Diagram: 11/18/16 0730 11/18/16 0730 Imaging Last Impressions Catheter Placement X-Ray 11/17/16 0000 Signed Impressions: Service Date/Time: Thursday, November 17, 2016 13:05 - CONCLUSION: 1. Single spot film reveals port tip overlying right atrium. Fahad Hearn MD Chest X-Ray 11/16/16 0000 Signed Impressions: Service Date/Time: October 08:40 - CONCLUSION: Underinflation with elevated right hemidiaphragm and atelectasis at the lung bases. Otherwise , no acute finding is identified. Theodore Butler MD Liver Biopsy CT 11/13/16 0000 Signed Impressions: Service Date/Time: Sunday, November 13, 2016 12:48 - CONCLUSION: Uncomplicated CT guided biopsy. Pathology is pending. Alex Kelley MD FACR Chest CT 11/13/16 0000 Signed Impressions: Service Date/Time: Sunday, November 13, 2016 12:34 - CONCLUSION: 1. Numerous large masses throughout the liver consistent with metastatic disease. 2. Several areas of bony metastatic disease. The most concerning lesion is at the left T10 level causing erosion of the pedicle and extending into the transverse process and base of the spinous process. This also erodes into the left side of the spinal canal and abuts the thecal sac. 3. Development of several small pulmonary nodules. The largest nodule only measures 6 mm. However given all of the other findings and the fact these are new, metastatic lesions need to be suspected. 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 - Outpt Liver US revealed masses in the liver. - Outpt CT Abd/pelvis --> Extensive and very large masses involving the liver, destructive jesisca lesions and pulmonary nodules. - Pt was seen by Dr. Aggarwal as an outpt on 11/10 and found to have elevated LFTs and was recommended to go to the ED at that time but declined at that time and actually reported to the ED on 11/12. - Pt underwent CT Guided liver biopsy on 11/13 - Pathology --> Poorly differentiated adenocarcinoma and suggests metastatic breast cancer - CT Chest (11/13/16) --> Numerous large masses throughout the liver consistent with metastatic disease. Several areas of bony metastatic disease, most concerning lesion at the left T10 level causing erosion of the pedicle and extending into the transverse process and base of the spinous process. This also erodes into the left side of the spinal canal and abuts the thecal sac. Development of several small pulmonary nodules, the largest only measure 6mm. - CEA elevated at 16.9, CA 15-3 elevated at 1190.8 and CA 19-9 is less than 1.2 - Pt started firs session of 10 day course of Radiation Therapy to spine 11/17/16 - HER-2 amplification studies on metastatic breast carcinoma tissue is pending at this time to determine chemo regimen - Appreciate Neurosurgery evaluation, They felt that initial treatment with radiation therapy would be reasonable for this patient. She was advised by Neurosurgery that there is a risk of progression of the lesion with development of spinal cord compression and instability which may yet require surgical intervention. No surgical intervention is necessary at this time. - Pt developed low grade fever on 11/16 and surgery for port placement was cancelled. She has been afebrile since 11/16 - Pt had port placed by Dr. Hughes 11/17/16 - Blood cultures with NGTD - CXR is negative. UA is negative. - Supportive care - Oxycodone 5mg Q6H scheduled and PRN Dilaudid - Diet as tolerated - Constipation precautions - DVT prophylaxis with Lovenox 11/18/16 - pt interviewed and examined - pt has NO new complaints - continue treatment plan as outlined above. (2) Personal history of malignant neoplasm of breast Status: Chronic Plan: - See above. Mauricio Figueroa DO Nov 18, 2016 10:27
[2016-11-18 11:03] LABS: INDIRECT BILIRUBIN 0.8 MG/DL (0.0-0.8); TOTAL BILIRUBIN ADULT 1.5 MG/DL (0.2-1.0)
[2016-11-18 12:39] VITALS: BP 118/79; PULSE 96; RESP 20; TEMP 97.9; O2SAT 100
[2016-11-18 16:47] VITALS: BP 115/77; PULSE 87; RESP 20; TEMP 98; O2SAT 98
[2016-11-18 20:00] VITALS: BP 122/87; PULSE 86; RESP 18; TEMP 97.2; O2SAT 97
[2016-11-18] MEDS: HYDROmorphone HCL PF 1 MG/ML VIAL IV PRN (21:55)
[2016-11-19] VITALS: BP 114/77; PULSE 91; RESP 18; TEMP 98.4; O2SAT 97
[2016-11-19 04:00] VITALS: BP 122/86; PULSE 81; RESP 18; TEMP 98.1; O2SAT 98
[2016-11-19 08:00] VITALS: BP 112/78; PULSE 85; RESP 14; TEMP 98.3; O2SAT 96
[2016-11-19] MEDS: DOCUSATE SODIUM 50 MG/SENNA 8.6 MG TAB PO SCH ×2 (09:00→20:43)
[2016-11-19] MEDS: ANASTROZOLE 1 MG TAB PO SCH (09:04)
[2016-11-19] MEDS: SODIUM CHLORIDE 0.9% FLUSH 10 ML FLUSH IV FLUSH SCH ×2 (09:05→20:43)
--- NOTE | 2016-11-19 10:24 | PD.ONC.PN ---
Subjective Subjective Remarks Afebrile overnight. Hoping to wait until tomorrow after radiation to be discharged. States back pain is controlled as long as she takes her oxycodone on time. Objective Data Date Time Temp Pulse Resp B/P Pulse Ox O2 Delivery O2 Flow Rate FiO2 11/19/16 08:00 98.3 85 14 112/78 96 11/19/16 04:00 98.1 81 18 122/86 98 11/19/16 00:00 98.4 91 18 114/77 97 11/18/16 20:00 97.2 86 18 122/87 97 11/18/16 16:47 98.0 87 20 115/77 98 11/18/16 12:39 97.9 96 20 118/79 100 11/19/16 11/19/16 11/19/16 07:00 15:00 23:00 Intake Total 480 ml Balance 480 ml Result Diagram: 11/18/16 0730 11/18/16 0730 Culture Results Microbiology Date/Time Procedure Status Source Growth 11/16/16 10:44 Aerobic Blood Culture - Preliminary Resulted Blood Peripheral NO GROWTH IN 2 DAYS 11/16/16 10:44 Anaerobic Blood Culture - Preliminary Resulted Blood Peripheral NO GROWTH IN 2 DAYS 11/16/16 10:44 Aerobic Blood Culture - Preliminary Resulted Blood Peripheral NO GROWTH IN 2 DAYS 11/16/16 10:44 Anaerobic Blood Culture - Preliminary Resulted Blood Peripheral NO GROWTH IN 2 DAYS Administered Medications Medications (Trade) Dose Ordered Sig/Jason Route PRN Reason Start Time Stop Time Status Last Admin Dose Admin Sodium Chloride (NS Flush) 2 ml BID IV FLUSH 11/12/16 21:00 11/19/16 09:05 Hydromorphone HCl (Dilaudid Pf Inj) 0.5 mg Q4H PRN IV pain 2-5 11/12/16 18:30 11/18/16 21:55 Senna/Docusate Sodium (Aviva-Colace) 1 tab BID PO 11/12/16 21:00 11/18/16 21:55 Oxycodone HCl (Roxicodone) 5 mg Q6H PO 11/13/16 17:00 11/19/16 10:09 Enoxaparin Sodium (Lovenox Inj) 40 mg Q24H SQ 11/14/16 08:30 Hold 11/15/16 09:42 Anastrozole (Arimidex) 1 mg DAILY PO 11/17/16 14:00 11/19/16 09:04 Objective Remarks GENERAL: Middle aged female, upright in bed in nad. SKIN: Warm and dry. HEAD: Normocephalic. EYES: No injection or drainage. NECK: Supple, trachea midline. CARDIOVASCULAR: Regular rate and rhythm RESPIRATORY: Breath sounds equal bilaterally. No accessory muscle use. GASTROINTESTINAL: Abdomen soft, non-tender, nondistended. EXTREMITIES: No cyanosis NEUROLOGICAL: aox3. normal speech. moving all extremities. 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 She was diagnosed about 3 years ago and underwent surgical resection; skin sparing left breast mastectomy with sentinel lymph node biopsy along with prophylactic right breast modified radical mastectomy with skin and nipple sparing. Now presents with extensive metastatic disease to the liver as well as extensive metastatic disease to the axial bony skeleton. Liver biopsy indicates findings consistent with metastatic carcinoma of breast primary; positive for estrogen receptor expression and mammoglobin. She is in a visceral crisis given the extensive liver involvement. Additionally she has disease involving the T10 vertebral body with resultant nerve impingement and resultant pain. Plan 1. Metastatic carcinoma of breast: continue Arimidex. continue XRT 2. Pain control: currently on Oxycodone 5mg PO q 6 hours and this seems to be controlling her pain. 3. clear for discharge. Attending Statement The exam, history, and the medical decision-making described in the above note were completed with the assistance of the mid-level provider. I reviewed and agree with the findings presented. I attest that I had a [id number] encounter with the patient on the same day, and personally performed and documented my assessment and findings in the medical record. Pt seen and examined. Exacerbation of pain, scared her. Continue pain regimen. Bowels moving. Continue AI. Dionna Ferrell Nov 19, 2016 10:24 Indira Pearce MD Nov 19, 2016 13:52
--- NOTE | 2016-11-19 10:34 | HHI.PR ---
Subjective Remarks No new complaints. Pt is tolerating PO intake. No n/v/d. Objective Vitals Vital Signs Date Time Temp Pulse Resp B/P Pulse Ox O2 Delivery O2 Flow Rate FiO2 11/19/16 08:00 98.3 85 14 112/78 96 11/19/16 04:00 98.1 81 18 122/86 98 11/19/16 00:00 98.4 91 18 114/77 97 11/18/16 20:00 97.2 86 18 122/87 97 11/18/16 16:47 98.0 87 20 115/77 98 11/18/16 12:39 97.9 96 20 118/79 100 11/18/16 11/18/16 11/19/16 15:00 23:00 07:00 Intake Total 480 ml 960 ml 480 ml Balance 480 ml 960 ml 480 ml Intake Oral 480 ml 960 ml 480 ml # Voids 2 2 2 # Bowel Movements 1 Result Diagram: 11/18/16 0730 11/18/16 0730 Imaging Last Impressions Catheter Placement X-Ray 11/17/16 0000 Signed Impressions: Service Date/Time: Thursday, November 17, 2016 13:05 - CONCLUSION: 1. Single spot film reveals port tip overlying right atrium. Fahad Hearn MD Chest X-Ray 11/16/16 0000 Signed Impressions: Service Date/Time: October 08:40 - CONCLUSION: Underinflation with elevated right hemidiaphragm and atelectasis at the lung bases. Otherwise , no acute finding is identified. Theodore Butler MD Liver Biopsy CT 11/13/16 0000 Signed Impressions: Service Date/Time: Sunday, November 13, 2016 12:48 - CONCLUSION: Uncomplicated CT guided biopsy. Pathology is pending. Alex Kelley MD FACR Chest CT 11/13/16 0000 Signed Impressions: Service Date/Time: Sunday, November 13, 2016 12:34 - CONCLUSION: 1. Numerous large masses throughout the liver consistent with metastatic disease. 2. Several areas of bony metastatic disease. The most concerning lesion is at the left T10 level causing erosion of the pedicle and extending into the transverse process and base of the spinous process. This also erodes into the left side of the spinal canal and abuts the thecal sac. 3. Development of several small pulmonary nodules. The largest nodule only measures 6 mm. However given all of the other findings and the fact these are new, metastatic lesions need to be suspected. 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 - Outpt Liver US revealed masses in the liver. - Outpt CT Abd/pelvis --> Extensive and very large masses involving the liver, destructive jessica lesions and pulmonary nodules. - Pt was seen by Dr. Aggarwal as an outpt on 11/10 and found to have elevated LFTs and was recommended to go to the ED at that time but declined at that time and actually reported to the ED on 11/12. - Pt underwent CT Guided liver biopsy on 11/13 - Pathology --> Poorly differentiated adenocarcinoma and suggests metastatic breast cancer - CT Chest (11/13/16) --> Numerous large masses throughout the liver consistent with metastatic disease. Several areas of bony metastatic disease, most concerning lesion at the left T10 level causing erosion of the pedicle and extending into the transverse process and base of the spinous process. This also erodes into the left side of the spinal canal and abuts the thecal sac. Development of several small pulmonary nodules, the largest only measure 6mm. - CEA elevated at 16.9, CA 15-3 elevated at 1190.8 and CA 19-9 is less than 1.2 - Pt started firs session of 10 day course of Radiation Therapy to spine 11/17/16 - HER-2 amplification studies on metastatic breast carcinoma tissue is pending at this time to determine chemo regimen - Appreciate Neurosurgery evaluation, They felt that initial treatment with radiation therapy would be reasonable for this patient. She was advised by Neurosurgery that there is a risk of progression of the lesion with development of spinal cord compression and instability which may yet require surgical intervention. No surgical intervention is necessary at this time. - Pt developed low grade fever on 11/16 and surgery for port placement was cancelled. She has been afebrile since 11/16 - Pt had port placed by Dr. Hughes 11/17/16 - Blood cultures with NGTD - CXR is negative. UA is negative. - Supportive care - Oxycodone 5mg Q6H scheduled and PRN Dilaudid - Diet as tolerated - Constipation precautions - DVT prophylaxis with Lovenox 11/18/16 - pt interviewed and examined - pt has NO new complaints - continue treatment plan as outlined above. - Pt agrees to discharge to home tomorrow after radiation therapy (2) Personal history of malignant neoplasm of breast Status: Chronic Plan: - See above. Mauricio Figueroa DO Nov 19, 2016 10:34
[2016-11-19 12:00] VITALS: BP 120/85; PULSE 82; RESP 16; TEMP 99.7; O2SAT 97
[2016-11-19 16:00] VITALS: BP 119/85; PULSE 88; RESP 16; TEMP 99.4; O2SAT 95
[2016-11-19 20:00] VITALS: BP 120/79; PULSE 106; RESP 18; TEMP 98.3; O2SAT 100
[2016-11-20] VITALS: BP 129/85; PULSE 103; RESP 18; TEMP 99.5; O2SAT 100
[2016-11-20 04:00] VITALS: BP 120/88; PULSE 107; RESP 17; TEMP 100.2; O2SAT 100
[2016-11-20] MEDS: ANASTROZOLE 1 MG TAB PO SCH (08:21)
[2016-11-20] MEDS: SODIUM CHLORIDE 0.9% FLUSH 10 ML FLUSH IV FLUSH SCH (08:21)
[2016-11-20] MEDS: DOCUSATE SODIUM 50 MG/SENNA 8.6 MG TAB PO SCH (08:21)
--- NOTE | 2016-11-20 08:46 | HHI.PR ---
Subjective Remarks pt was concerned about brain imaging. she is ready to go home after the radiation therapy Objective Vitals nad lying in bed oriented Vital Signs Date Time Temp Pulse Resp B/P Pulse Ox O2 Delivery O2 Flow Rate FiO2 11/20/16 04:00 100.2 107 17 120/88 100 11/20/16 00:00 99.5 103 18 129/85 100 11/19/16 20:00 98.3 106 18 120/79 100 11/19/16 16:00 99.4 88 16 119/85 95 11/19/16 12:00 99.7 82 16 120/85 97 11/19/16 11/19/16 11/20/16 15:00 23:00 07:00 Intake Total 840 ml 480 ml Balance 840 ml 480 ml Intake Oral 840 ml 480 ml # Voids 5 2 # Bowel Movements 0 1 Result Diagram: 11/18/16 0730 11/18/16 0730 Imaging Last Impressions Catheter Placement X-Ray 11/17/16 0000 Signed Impressions: Service Date/Time: Thursday, November 17, 2016 13:05 - CONCLUSION: 1. Single spot film reveals port tip overlying right atrium. Fahad Hearn MD Chest X-Ray 11/16/16 0000 Signed Impressions: Service Date/Time: October 08:40 - CONCLUSION: Underinflation with elevated right hemidiaphragm and atelectasis at the lung bases. Otherwise , no acute finding is identified. Theodore Butler MD Liver Biopsy CT 11/13/16 0000 Signed Impressions: Service Date/Time: Sunday, November 13, 2016 12:48 - CONCLUSION: Uncomplicated CT guided biopsy. Pathology is pending. Alex Kelley MD FACR Chest CT 11/13/16 0000 Signed Impressions: Service Date/Time: Sunday, November 13, 2016 12:34 - CONCLUSION: 1. Numerous large masses throughout the liver consistent with metastatic disease. 2. Several areas of bony metastatic disease. The most concerning lesion is at the left T10 level causing erosion of the pedicle and extending into the transverse process and base of the spinous process. This also erodes into the left side of the spinal canal and abuts the thecal sac. 3. Development of several small pulmonary nodules. The largest nodule only measures 6 mm. However given all of the other findings and the fact these are new, metastatic lesions need to be suspected. 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 - Outpt Liver US revealed masses in the liver. - Outpt CT Abd/pelvis --> Extensive and very large masses involving the liver, destructive jessica lesions and pulmonary nodules. - Pt was seen by Dr. Aggarwal as an outpt on 11/10 and found to have elevated LFTs and was recommended to go to the ED at that time but declined at that time and actually reported to the ED on 11/12. - Pt underwent CT Guided liver biopsy on 11/13 - Pathology --> Poorly differentiated adenocarcinoma and suggests metastatic breast cancer - CT Chest (11/13/16) --> Numerous large masses throughout the liver consistent with metastatic disease. Several areas of bony metastatic disease, most concerning lesion at the left T10 level causing erosion of the pedicle and extending into the transverse process and base of the spinous process. This also erodes into the left side of the spinal canal and abuts the thecal sac. Development of several small pulmonary nodules, the largest only measure 6mm. - CEA elevated at 16.9, CA 15-3 elevated at 1190.8 and CA 19-9 is less than 1.2 - Pt started firs session of 10 day course of Radiation Therapy to spine 11/17/16 - HER-2 amplification studies on metastatic breast carcinoma tissue is pending at this time to determine chemo regimen - Appreciate Neurosurgery evaluation, They felt that initial treatment with radiation therapy would be reasonable for this patient. She was advised by Neurosurgery that there is a risk of progression of the lesion with development of spinal cord compression and instability which may yet require surgical intervention. No surgical intervention is necessary at this time. - Pt developed low grade fever on 11/16 and surgery for port placement was cancelled. She has been afebrile since 11/16 - Pt had port placed by Dr. Hughes 11/17/16 - Blood cultures with NGTD - CXR is negative. UA is negative. - Supportive care - Oxycodone 5mg Q6H scheduled and PRN Dilaudid - Diet as tolerated - Constipation precautions - DVT prophylaxis with Lovenox I discussed pt concerns about brain imaging with oncology. will defer the need for imaging to Oncologist d/c home today after radiation therapy (2) Personal history of malignant neoplasm of breast Status: Chronic Plan: - See above. Boo Morris MD Nov 20, 2016 08:46
[2016-11-20] MEDS ORDERED: ANAS1 PO (08:48)
[2016-11-20] MEDS ORDERED: OXYC-392 PO (08:48)
--- NOTE | 2016-11-20 08:48 | HHI.DCPOC ---
Discharge Care Plan Diagnosis: (1) Metastatic breast cancer (2) Metastasis to liver Goals to Promote Your Health * To prevent worsening of your condition and complications * To maintain your health at the optimal level Directions to Meet Your Goals Take your medications as prescribed Follow your dietary instruction Follow activity as directed Keep your appointments as scheduled Take your immunizations and boosters as scheduled If your symptoms worsen call your PCP, if no PCP go to Urgent Care Center or Emergency Room Smoking is Dangerous to Your Health. Avoid second hand smoke Call the 24-hour hour crisis hotline for domestic abuse at Boo Morris MD Nov 20, 2016 08:48
[2016-11-20 10:00] VITALS: BP 104/69; PULSE 99; TEMP 98.3; O2SAT 98
--- NOTE | 2016-11-20 10:08 | HHI.NSPN ---
History Chief Complaint: Soreness to the back Interval History 11/14: 51-year-old female with history of high-grade ductal carcinoma of the breast diagnosed in 2014 and treated with modified radical mastectomy. She complains of 3 or 4 weeks of progressive right greater than left flank pain with radiation to the right greater than left gluteal region and proximal thigh. A CT scan of the chest and abdomen completed last week revealed a large liver mass with distractive metastatic lesions in the thoracic spine with positive pulmonary nodules. She presented to the emergency room 11/13/16 due to intractable pain. She denies any significant pain weakness numbness or paresthesias in the upper or lower extremities. She complains of constipation but no bladder dysfunction. 11/16: The patient is doing well this morning when seen. She reports a fever this morning and does have a headache but denies any back pain. Her pain medication does control the pain. She did have some nausea earlier that has since resolved after drinking some fluids. 11/20: The patient says she is doing good this morning. She denies any pain to the back but does say it is sore. She has no other complaints. System Review Comments Constitutional: Patient denies any fever or chills. Respiratory: Patient denies any shortness of breath or productive cough. Cardiovascular: Patient denies any chest pain, palpitations or irregular heartbeat. Gastrointestinal: Patient denies any abdominal pain, nausea, vomiting or incontinence of stool. Genitourinary: Patient denies any incontinence of urine. Musculoskeletal: Patient states her back is sore but denies any pain. She denies any pain or weakness to the extremities. Neurologic: Patient denies any headache, dizziness, numbness or tingling. Exam Results Vital Signs Date Time Temp Pulse Resp B/P Pulse Ox O2 Delivery O2 Flow Rate FiO2 11/20/16 04:00 100.2 107 17 120/88 100 11/17/16 14:10 Nasal Cannula 2 Intake and Output 11/19/16 11/19/16 11/20/16 08:00 16:00 00:00 Intake Total 480 ml 840 ml 480 ml Balance 480 ml 840 ml 480 ml Physical Examination GENERAL: Patient awake & alert, readily interacts, normal affect, no apparent distress. SKIN: Skin warm, dry & intact, no evident discolouration, rashes or lesions. HEENT: Normocephalic, atraumatic. NECK: Midline cervical spine NTTP, active FROM, no JVD, trachea midline. RESPIRATORY: CTAB w/o W/R/R, equal excursion, nonlaboured, on RA. CARDIOVASCULAR: S1S2 w/RRR w/o M/G/R, radial & pedal pulses 2+ bilaterally, cap refill < 2 sec, no pedal edema. GASTROINTESTINAL: Abdomen soft, nontender, positive bowel sounds. MUSCULOSKELETAL: MCLAIN w/o difficulty, nontender, no evident deformity or clubbing. Midline thoracolumbar spine & right paraspinal minimally TTPs. NEUROLOGICAL: AAOx3 Speech clear & appropriate Follows simple command w/o difficulty Sensation intact to light touch to all extremities Motor strength 5/5 to all major flexion & extension muscle groups Medical Decision Making Impression and Plan Impression: 1. Metastatic lesion to T10 pedicle and lamina with mild impingement on the spinal canal in patient with history of high-grade ductal carcinoma of the breast. Presently no evidence of thoracic myelopathy on the basis of imaging study, symptoms or examination. Plan: Discussed plan of care with patient & family Radiation therapy to T10 lesion per Radiation Oncology No bending, reaching, excessive twisting, heavy lifting or other strenuous activity Patient is clear for discharge from NSGY's perspective with follow up in the office in 10-14 days Will intermittently follow in hospital at present although it appears from the Hospitalist note that she is to be discharged today after receiving radiation therapy. Pepe José Nov 20, 2016 10:08
[2016-11-20 12:00] VITALS: BP 112/72; PULSE 94; RESP 16; TEMP 97.9; O2SAT 95
--- NOTE | 2016-11-20 12:23 | PD.ONC.PN ---
Subjective Subjective Remarks tmax 100.2 overnight. Wants MRI brain today. Pain controlled with Oxycodone. Objective Data Date Time Temp Pulse Resp B/P Pulse Ox O2 Delivery O2 Flow Rate FiO2 11/20/16 10:00 98.3 99 104/69 98 11/20/16 04:00 100.2 107 17 120/88 100 11/20/16 00:00 99.5 103 18 129/85 100 11/19/16 20:00 98.3 106 18 120/79 100 11/19/16 16:00 99.4 88 16 119/85 95 Result Diagram: 11/18/1630 11/18/16 0730 Administered Medications Medications (Trade) Dose Ordered Sig/Jason Route PRN Reason Start Time Stop Time Status Last Admin Dose Admin Sodium Chloride (NS Flush) 2 ml BID IV FLUSH 11/12/16 21:00 11/20/16 08:21 Hydromorphone HCl (Dilaudid Pf Inj) 0.5 mg Q4H PRN IV pain 2-5 11/12/16 18:30 11/18/16 21:55 Senna/Docusate Sodium (Aviva-Colace) 1 tab BID PO 11/12/16 21:00 11/20/16 08:21 Oxycodone HCl (Roxicodone) 5 mg Q6H PO 11/13/16 17:00 11/20/16 11:17 Enoxaparin Sodium (Lovenox Inj) 40 mg Q24H SQ 11/14/16 08:30 Hold 11/15/16 09:42 Anastrozole (Arimidex) 1 mg DAILY PO 11/17/16 14:00 11/20/16 08:21 Objective Remarks GENERAL: Middle aged female, upright in bed in nad. SKIN: Warm and dry. HEAD: Normocephalic. EYES: No injection or drainage. NECK: Supple, trachea midline. CARDIOVASCULAR: Regular rate and rhythm RESPIRATORY: Breath sounds equal bilaterally. No accessory muscle use. GASTROINTESTINAL: Abdomen soft, non-tender, nondistended. EXTREMITIES: No cyanosis NEUROLOGICAL: awake and alert, normal speech Assessment/Plan Assessment 51-year-old female with metastatic breast cancer. +liver and bone mets. Plan 1. Metastatic carcinoma of breast: continue Arimidex. continue XRT 2. Pain control: continue Oxycodone 5mg PRN pain 3. MRI brain for staging 4. once discharged, patient advised to call and make an appointment for next week with Dr. auguste Attending Statement The exam, history, and the medical decision-making described in the above note were completed with the assistance of the mid-level provider. I reviewed and agree with the findings presented. I attest that I had a [id number] encounter with the patient on the same day, and personally performed and documented my assessment and findings in the medical record. Pt seen and examined earlier. Noted pain good control. No localizing symptoms. Anxiety over [employer] mets. MRi brain negative. Dionna Ferrell Nov 20, 2016 12:23 Indira Pearce MD Nov 20, 2016 23:18
[2016-11-20] MEDS ORDERED: GADODIAMIDE PF 287 MG/ML 20 ML VIAL (for RAD MRI) IV ONE (13:10)
--- NOTE | 2016-11-20 14:07 | RADRPT ---
EXAM DATE/TIME: 11/20/2016 12:49 [facility] COMPARISON: MRI BRAIN W & W/O CONTRAST, February 28, 2015, 22:45. INDICATIONS : Metastatic disease. CONTRAST: 16 cc Omniscan (gadodiamide) IV MEDICAL HISTORY : Carcinoma, breast. SURGICAL HISTORY : Mastectomy, left. Hysterectomy. ENCOUNTER: Initial ACUITY: 3 day PAIN SCORE: 0/10 LOCATION: Head TECHNIQUE: Multiplanar, multisequence MRI of the brain was performed both prior to and following the administrat ion of paramagnetic contrast. 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 The mass spreads anteriorly along the cribiform plate. T he mass does not extend any farther posterior than the sella. Mass in greatest dimension measures approximately 2.4 cm x 2.4 cm, slightly smaller in the interval. Bulk of the mass is slightly to the right of midline. There is involvement of the left cavernous carotid more so than the right. The mass does have the right anterior cerebral artery bowed posteriorly as well as the middle cerebra l artery. Given the history of breast cancer there is no other abnormal areas of contrast enhancement evident. There are no extraaxial fluid collections appreciated. Orbits are unremarkable. CONCLUSION: Presumed meningioma, slightly smaller in the interval with direct involvement of the cavernous sinus bilaterally as well as the optic chiasm. Alex Kelley MD FACR on November 20, 2016 at 13:57 Board Certified Radiologist. This report was verified electronically.
== END 2016-11-20 17:22 | disposition home or self-care (01) | DRG 436 ==
LOC: NEPC 16:44 → NEDA 17:46 → NEPGCP 20:06 → OBSVTOIN 11-13 16:44 → HOCB 11-13 20:24 → HOCA 11-18 15:52
PROVIDERS: ADMIT Hospitalist; ATTEND Hospitalist
PROC: 0FB13ZX Excision of Right Lobe Liver, Percutaneous Approach, Diagnostic (ICD-10-PCS; principal; 2016-11-13)
PROC: 02H633Z Insertion of Infusion Device into Right Atrium, Percutaneous Approach (ICD-10-PCS; 2016-11-17)
PROC: 0JH60XZ Insertion of Tunneled Vascular Access Device into Chest Subcutaneous Tissue and Fascia, Open Approach (ICD-10-PCS; 2016-11-17)
DX: C78.7 Secondary malignant neoplasm of liver and intrahepatic bile duct (principal); C79.51 Secondary malignant neoplasm of bone; C79.49 Secondary malignant neoplasm of other parts of nervous system; R91.8 Other nonspecific abnormal finding of lung field; R51 Headache; K59.00 Constipation, unspecified; R50.9 Fever, unspecified; Z85.3 Personal history of malignant neoplasm of breast; Z86.011 Personal history of benign neoplasm of the brain; Z92.3 Personal history of irradiation; Z79.811 Long term (current) use of aromatase inhibitors
CPT/HCPCS: 47000; 70553; 71010; 71250; 77001; 77012; 77263; 77280; 77290; 77295; 77300; 77334; 77412; 80048; 80053; 80076; 81001; 82378; 83735; 85025; 85610; 85730; 86300; 86301; 87040; 88307; 88333; 88341; 88342; 93306; 94150; 96372; 99204; 99222; A9579; C1788; G0463; J1170; J1644; J1650; J2250; J2270; J2405; J2430; J3010; J7040

== ENCOUNTER 2016-12-24 20:35 | Emergency (ER) | payer OTHER ==
[~2016-12-24] VITALS: Ht 157.5 cm; Wt 73.5 kg
[~2016-12-24 20:35] MED LIST changes: +ANAS1 PO; +OXYC-392 PO
[2016-12-24 20:37] VITALS: BP 136/93; PULSE 97; RESP 18; TEMP 98.6; O2SAT 97
--- NOTE | 2016-12-24 21:12 | PD ---
HPI Chief Complaint: Pain: Acute or Chronic Time Seen by Provider: 21:07 Travel History International Travel<30 days: No Contact w/Intl Traveler<30days: No Traveled to known affect area: No History of Present Illness HPI The patient is a 51 year old female who presents to the [facility] emergency department with a history of right sided pain in her flank that recurred last night. This is similar pain to what she was admitted to the hospital for related to liver metastasis and bony metastasis from breast cancer. She reports that the pain had begun to improve on chemotherapy and after radiation therapy. She reports that her last chemotherapy was done on Sunday. Her last radiation therapy was some 1-2 weeks ago. She reports that she was able to discontinue her oxycodone and just take Tylenol as needed for pain. However, when the pain recurred again last night the pain has been unrelieved with oxycodone. She last took oxycodone at 5pm, 1- 5 mg oxycodone tablet. Her last BM yesterday. She is taking Senna with Colase. She does report having on exertion that is chronic. She also reports having dysuria that began yesterday on review of systems. Otherwise on review of systems, she denies having any urinary frequency or urgency. She denies having any incontinence. The patient denies any recent fevers, cough, congestion, neck pain, chest pain, shortness of breath, abdominal pain, vomiting, diarrhea, or neurologic symptoms. [facility] Past Medical History Narrative Medical The patient's past medical history is significant for breast cancer that was first diagnosed in 2013, history of intermittent meningioma status post radiation therapy in 2014, history of metastasis of breast cancer to the liver and spine that was first diagnosed in October 2016. Hx Anticoagulant Therapy: No Asthma: No Blood Disorders: No Anxiety: No Depression: No Heart Rhythm Problems: No Cancer: Yes (BREAST CA, brain ca) Cardiovascular Problems: Yes (MVP) High Cholesterol: No Chemotherapy: Yes (RADIATION BRAIN TUMOR) Chest Pain: No Congestive Heart Failure: No COPD: No Cerebrovascular Accident: No Diabetes: No Endocrine: No Genitourinary: No Hepatitis: No Hiatal Hernia: No Immune Disorder: No Musculoskeletal: No Neurologic: No Psychiatric: No Reproductive: No Respiratory: No Radiation Therapy: Yes (menigioma in head) Sleep Apnea: No Thyroid Disease: No ?: Not Past Surgical History Narrative Surgical The patient's past surgical history is significant for partial hysterectomy, liver biopsy, Zueudu-m-Ykgo placement, left breast biopsy, lumpectomy, mastectomy, reconstructive plastic surgery of the breasts, bilateral tubal ligation. Abdominal Surgery: No AICD: No Body Medical Devices: BREAST RECONSTRUCTION, breast implants Cardiac Surgery: No Ear Surgery: No Endocrine Surgery: No Eye Surgery: No Genitourinary Surgery: No Gynecologic Surgery: Yes (HYSTERECTOMY) Hysterectomy: Yes Joint Replacement: No Mastectomy: Yes (bilateral) Oral Surgery: No Pacemaker: No Thoracic Surgery: Yes (LT LUMPECTOMY WITH LYMPH NODES) Other Surgery: Yes (bilateral mastectomies) Social History Alcohol Use: No Tobacco Use: No Substance Use: No Allergies-Medications (Allergen,Severity, Reaction): Coded Allergies: Percocet (Verified Allergy, Unknown, Itching, 11/12/16) Reported Meds & Prescriptions Reported Meds & Active Scripts Active Oxycodone (Oxycodone HCl) 5 Mg Tab 5 Mg PO Q6H Reported Senna Laxative (Sennosides) 8.6 Mg Tab Vitamin D (Cholecalciferol) 2,000 Unit Cap Review of Systems Except as stated in HPI: all other systems reviewed are Neg General / Constitutional: No: Fever Eyes: No: Visual changes HENT: No: Headaches Cardiovascular: No: Chest Pain or Discomfort Respiratory: No: Shortness of Breath Gastrointestinal: Positive: Constipation, No: Nausea, Vomiting, Diarrhea, Abdominal Pain, Changes in Bowel Habits, Indigestion, Loss of Appetite Genitourinary: Positive: Dysuria, Flank Pain (right-sided flank pain), No: Urgency, Frequency Musculoskeletal: No: Pain Skin: No Rash Neurologic: No: Weakness Psychiatric: No: Depression Endocrine: No: Polydipsia Hematologic/Lymphatic: No: Easy Bruising Physical Exam Narrative General: The patient is a well-developed well-nourished female in no acute distress. Head and Neck exam: Head is normocephalic atraumatic. Eyes: EOMI, pupils are equal round and reactive to light. Nose: Midline septum with pink mucous membranes Mouth: Dentition unremarkable. Moist mucus membranes. Posterior oropharynx is not erythematous. No tonsillar hypertrophy. Uvula midline. Airway patent. Neck: No palpable lymphadenopathy. No nuchal rigidity. No thyromegaly. Cardiovascular: Regular rate and rhythm without murmurs, gallops, or rubs. Lungs: Clear to auscultation bilaterally. No wheezes, rhonchi, or rales. Abdomen: Soft, without tenderness to palpation in all 4 quadrants of the abdomen. No guarding, rebound, or rigidity. No tenderness on palpation of McBurney's point. Normal bowel sounds are audible. Negative Danube sign. Extremities: No clubbing, cyanosis, or edema. 2+ pulses in all 4 extremities. No calf tenderness on palpation. Back: No spinous process tenderness to palpation. Right-sided CVA tenderness is elicited on palpation. Neurologic Exam: Grossly nonfocal. Skin Exam: No rash noted. Intact skin that is warm and dry. Data Data Last Documented VS Vital Signs Date Time Temp Pulse Resp B/P Pulse Ox O2 Delivery O2 Flow Rate FiO2 12/24/16 20:37 98.6 97 18 136/93 97 Room Air Orders Complete Blood Count With Diff (12/24/16 21:22) Basic Metabolic Panel (Bmp) (12/24/16 21:22) Urinalysis - C+S If Indicated (12/24/16 21:22) Iv Access Insert/Monitor (12/24/16 21:22) Ecg Monitoring (12/24/16 21:22) Oximetry (12/24/16 21:22) Sodium Chlorid 0.9% 500 Ml Inj (Ns 500 M (12/24/16 21:30) Morphine Inj (Morphine Inj) (12/24/16 21:30) Ondansetron Inj (Zofran Inj) (12/24/16 21:30) Hepatic Functional Panel (12/24/16 21:22) Lipase (12/24/16 21:22) Labs Laboratory Tests Test 12/24/16 12/24/16 21:40 22:00 White Blood Count 1.9 TH/MM3 Red Blood Count 4.21 MIL/MM3 Hemoglobin 13.4 GM/DL Hematocrit 39.2 % Mean Corpuscular Volume 93.3 FL Mean Corpuscular Hemoglobin 31.8 PG Mean Corpuscular Hemoglobin 34.1 % Concent Red Cell Distribution Width 15.4 % Platelet Count 218 TH/MM3 Mean Platelet Volume 8.3 FL Neutrophils (%) (Auto) 72.9 % Lymphocytes (%) (Auto) 17.9 % Monocytes (%) (Auto) 5.5 % Eosinophils (%) (Auto) 2.1 % Basophils (%) (Auto) 1.6 % Neutrophils # (Auto) 1.4 TH/MM3 Lymphocytes # (Auto) 0.3 TH/MM3 Monocytes # (Auto) 0.1 TH/MM3 Eosinophils # (Auto) 0.0 TH/MM3 Basophils # (Auto) 0.0 TH/MM3 CBC Comment AUTO DIFF Sodium Level 139 MEQ/L Potassium Level 3.9 MEQ/L Chloride Level 104 MEQ/L Carbon Dioxide Level 27.5 MEQ/L Anion Gap 8 MEQ/L Blood Urea Nitrogen 6 MG/DL Creatinine 0.72 MG/DL Estimat Glomerular Filtration 104 ML/MIN Rate Random Glucose 85 MG/DL Calcium Level 8.9 MG/DL Total Bilirubin 0.9 MG/DL Direct Bilirubin 0.4 MG/DL Indirect Bilirubin 0.5 MG/DL Aspartate Amino Transf 65 U/L (AST/SGOT) Alanine Aminotransferase 39 U/L (ALT/SGPT) Alkaline Phosphatase 163 U/L Total Protein 8.3 GM/DL Albumin 3.3 GM/DL Lipase 366 U/L Urine Color YELLOW Urine Turbidity CLEAR Urine pH 7.0 Urine Specific [place] 1.016 Urine Protein NEG mg/dL Urine Glucose (UA) NEG mg/dL Urine Ketones NEG mg/dL Urine Occult Blood NEG Urine Nitrite NEG Urine Bilirubin NEG Urine Urobilinogen 8.0 MG/DL Urine Leukocyte Esterase NEG Urine RBC 1 /hpf Urine WBC 1 /hpf Urine Squamous Epithelial 1 /hpf Cells Urine Mucus FEW /lpf Microscopic Urinalysis Comment CULT NOT INDICATED MDM Medical Decision Making Medical Screen Exam Complete: Yes Emergency Medical Condition: Yes Medical Record Reviewed: Yes Differential Diagnosis Pyelonephritis, versus exacerbation of pain related to breast cancer metastasis , versus increasing liver enzymes related to metastasis, versus musculoskeletal strain Narrative Course During the course of the patients emergency department visit, the patients history, examination, and differential diagnosis were reviewed with the patient. The patient had IV access obtained and blood work sent for analysis. The patient was placed on a cardiac catheterization technician with oximetry and blood pressure monitoring. The patient was initially provided normal saline a 500 mL bolus, Zofran 4 mg IV , morphine 4 mg IV. The patients laboratory studies were reviewed and remarkable for a white count of 1.9 which is decreased compared to previously at 3.6 on Crystal 25, hemoglobin 13.4, platelets 218 with 72.9 neutrophils. CMP is remarkable for a BUN of 6, direct bilirubin 0.4 which is decreased compared to previously, AST 65 which is also decreased compared to previously, alkaline phosphatase 163, albumin 3.3, lipase 366, urinalysis shows 8 urobilinogen, otherwise unremarkable. Culture not indicated. I suspect that the patient's symptoms are an exacerbation of her pain related to metastatic breast cancer. The patient was instructed to increase her oxycodone dose to 1-2 tablets by mouth every 6 hours when necessary pain. She was also instructed to follow-up closely with her oncologist, Dr. Aggarwal. The patient is resting comfortably and feels better, is alert and in no distress. The patients results and examination findings were discussed with the patient. The repeat examination is unremarkable and benign. The history, exam, diagnostic testing, and current condition do not suggest any significant pathology to warrant further testing, continued ED treatment, admission, or surgical evaluation at this point. The vital signs have been stable. The patient does not have uncontrollable pain, intractable vomiting, or other significant symptoms. The patient's condition is stable and appropriate for discharge. The patient will pursue further outpatient evaluation with a primary care physician or other designated or consulting physician as indicated in the discharge instructions. The patient expressed understanding and was agreeable with this plan. Diagnosis Primary Impression: Metastatic breast cancer Additional Impression: Flank pain Referrals: Tobias Aggarwal MD Patient Instructions: Flank Pain (ED), General Instructions Departure Forms: Tests/Procedures Additional Instructions: The patient is instructed to increase her oxycodone dose to 1-2 tablets by mouth every 6 hours as needed for pain. Med/Other Pt SpecificInfo: Prescription(s) given Scripts Oxycodone 5 Mg Tab1-2 Tab PO Q6HR PRN (PAIN GREATER THAN 5) #12 TAB Prov:Kimmie Umanzor MD 12/24/16 Disposition: 01 DISCHARGE HOME Condition: Stable Kimmie Umanzor MD Dec 24, 2016 21:12
[2016-12-24] MEDS ORDERED: SODIUM CHLORID 0.9% 500 ML INJ 500 ML IV ONE (21:30)
[2016-12-24] MEDS ORDERED: MORPHINE SULFATE 4 MG/ML INJ IV PUSH ONE (21:30)
[2016-12-24] MEDS ORDERED: ONDANSETRON HCL 4 MG/2 ML VIAL IV PUSH ONE (21:30)
[2016-12-24] MEDS ORDERED: VITA200013 (21:54)
[2016-12-24] MEDS ORDERED: SENN8.6T25 (21:54)
[2016-12-24 22:36] LABS: AUTOMATED NEUTROPHIL # 1.4 TH/MM3 (1.8-7.7); BASOPHIL % 1.6 % (0.0-2.0); EOSINOPHIL % 2.1 % (0.0-4.0); HEMATOCRIT 39.2 % (35.0-46.0); LYMPH % 17.9 % (9.0-44.0); LYMPHOCYTE # 0.3 TH/MM3 (1.0-4.8); MEAN CELL VOLUME 93.3 FL (80.0-100.0); MEAN CORPUSCULAR HEMOGLOBIN 31.8 PG (27.0-34.0); MEAN CORPUSCULAR HGB CONC 34.1 % (32.0-36.0); MONO % 5.5 % (0.0-8.0); NEUT % 72.9 % (16.0-70.0); PLATELET COUNT 218 TH/MM3 (150-450); RED BLOOD COUNT 4.21 MIL/MM3 (4.00-5.30); RED CELL DISTRIBUTION WIDTH 15.4 % (11.6-17.2); WHITE BLOOD COUNT 1.9 TH/MM3 (4.0-11.0)
[2016-12-24 22:37] LABS: HEMO FLAGS AUTO DIFF
[2016-12-24 23:10] LABS: BLOOD, URINE NEG (NEG); COMMENT (UR) CULT NOT INDICATED; CULTURE IF INDICATED CULT NOT INDICATED; GLUCOSE,URINE NEG (NEG); KETONE, URINE NEG (NEG); MUCUS URINE FEW /lpf (OCC); NITRITE,URINE NEG (NEG); SQUAMOUS EPITHELIAL CELL URINE 1 /hpf (0-5); URINE COLOR YELLOW (YELLW/STRAW)
[2016-12-24 23:27] LABS: BICARBONATE 27.5 MEQ/L (21.0-32.0); POTASSIUM 3.9 MEQ/L (3.5-5.1)
[2016-12-24 23:28] LABS: INDIRECT BILIRUBIN 0.5 MG/DL (0.0-0.8); TOTAL BILIRUBIN ADULT 0.9 MG/DL (0.2-1.0)
[2016-12-24] MEDS ORDERED: OXYC-392 PO (23:44)
[2016-12-25] MEDS ORDERED: MORPHINE SULFATE 4 MG/ML INJ IV PUSH ONE
[2016-12-25 00:05] VITALS: BP 120/80; PULSE 90; RESP 16; O2SAT 98
[2016-12-25 00:35] LABS: BANDS 25 % (0-6); BASOPHILS 3 % (0-2); NEUTROPHIL # MANUAL DIFF 1.3 TH/MM3 (1.8-7.7); PLATELET ESTIMATE SMEAR NORMAL (NORMAL); PLATELET MORPHOLOGY NORMAL (NORMAL); POLYS (SEG NEUTROPHILS) 41 % (16-70); SCAN/DIFF FINAL DIFF MANUAL; WBC DIFF SAMPLE 100
== END 2016-12-25 00:10 | disposition home or self-care (01) ==
LOC: NEPE 20:35
DX: C50.919 Malignant neoplasm of unspecified site of unspecified female breast (principal); C78.7 Secondary malignant neoplasm of liver and intrahepatic bile duct; C79.51 Secondary malignant neoplasm of bone
CPT/HCPCS: 80048; 80076; 81001; 83690; 85007; 85027; 96361; 96374; 96375; 96376; 99284; J2270; J2405; J7040

== ENCOUNTER 2017-01-23 19:22 | Inpatient (IN) | payer OTHER ==
[~2017-01-23] VITALS: Ht 157.5 cm; Wt 70.9 kg
[~2017-01-23 19:22] MED LIST changes: -ANAS1 PO; -PHEN15CA PO; +SENN8.6T25; +VITA200013; -VITA20003 PO
[2017-01-23 19:25] VITALS: BP 119/74; PULSE 112; RESP 15; TEMP 99.7; O2SAT 97
--- NOTE | 2017-01-23 20:03 | PD ---
Physical Exam Time Seen by Provider: 19:56 Narrative 51yo F sent by Dr. Clay after developing pain behind her port after Chemo therapy today. Port is to left chest and pain radiates down arm. +low grade fever. Patient seen in triage. VS reviewed. Patient taken to medical bed form triage. Data Data Last Documented VS Vital Signs Date Time Temp Pulse Resp B/P (MAP) Pulse Ox O2 Delivery O2 Flow Rate FiO2 01/23/17 19:25 99.7 112 15 119/74 (89) 97 Room Air MDM Supervised Visit with WENDI: Irlanda Zimmerman Jan 23, 2017 20:03
--- NOTE | 2017-01-23 20:18 | PD ---
HPI Chief Complaint: Pain: Acute or Chronic Time Seen by Provider: 20:14 Travel History International Travel<30 days: No Contact w/Intl Traveler<30days: No Traveled to known affect area: No History of Present Illness HPI The patient is a 51 year old female who presents to the [facility] emergency department with a history of awakening from a nap after chemotherapy this afternoon at 5 PM with the pain along her left chest wall underneath her Qiyttk-l-Stvs and into the left side of her chest wall and over her breast implant on the left. She denies having any swelling or redness associated with this. She denies having any known fevers all day on arrival her temperature was elevated at 99.6. She reports that during the chemotherapy she did not have any significant pain. She reports that she completed the chemotherapy at 3 :30 PM and went home and took a nap. She reports having some shortness of breath, however she reports that she has shortness of breath typically after completing her chemotherapy. She denies having any significant cough or congestion. She reports that she did not take a pain pill prior to arrival as this was a different site of pain than her usual pain in the flank. She reports that her bony pain related to metastasis has improved since completing radiation therapy at the end of November. She reports that she called her oncologist and spoke to the oncologist on-call, Dr. Clay who recommended that she come in for evaluation related to the pain. The patient reports that the pain radiates up into the left side of her neck. On review of systems, the patient denies any abdominal pain, vomiting, diarrhea, urinary symptoms, or neurologic symptoms. She reports that she has been moving her bowels regularly on her stool softener. [facility] Past Medical History Narrative Medical The patient's past medical history is significant for metastatic breast cancer with liver metastasis, history of meningioma status post radiation therapy, history of bony metastasis suspected to be related to breast cancer, history of mitral valve prolapse. Hx Anticoagulant Therapy: No Asthma: No Blood Disorders: No Anxiety: No Depression: No Heart Rhythm Problems: No Cancer: Yes (breast cancer, liver and bone) Cardiovascular Problems: Yes (MVP) High Cholesterol: No Chemotherapy: Yes (RADIATION BRAIN TUMOR) Chest Pain: No Congestive Heart Failure: No COPD: No Cerebrovascular Accident: No Diabetes: No Diminished Hearing: No Endocrine: No Genitourinary: No Hepatitis: No Hiatal Hernia: No Immune Disorder: No Musculoskeletal: No Neurologic: No Psychiatric: No Reproductive: No Respiratory: No Radiation Therapy: Yes (menigioma in head) Sleep Apnea: No Thyroid Disease: No Tetanus Vaccination: < 5 Years Influenza Vaccination: No ?: Not Past Surgical History Narrative Surgical The patient's past surgical history is significant for breast biopsy, partial hysterectomy due to fibroids, Pjnvqs-d-Icdi placement, lumpectomy, mastectomy status post reconstructive surgery, bilateral tubal ligation. Abdominal Surgery: No AICD: No Body Medical Devices: BREAST RECONSTRUCTION, breast implants Cardiac Surgery: No Ear Surgery: No Endocrine Surgery: No Eye Surgery: No Genitourinary Surgery: No Gynecologic Surgery: Yes (HYSTERECTOMY) Hysterectomy: Yes Joint Replacement: No Mastectomy: Yes (bilateral) Neurologic Surgery: No Oral Surgery: No Pacemaker: No Thoracic Surgery: Yes (LT LUMPECTOMY WITH LYMPH NODES) Other Surgery: Yes (bilateral mastectomies) Social History Alcohol Use: No Tobacco Use: No Substance Use: No Allergies-Medications (Allergen,Severity, Reaction): Coded Allergies: acetaminophen (Unverified Allergy, Unknown, Itching, 01/09/17) oxycodone (Unverified Allergy, Unknown, Itching, 01/09/17) Reported Meds & Prescriptions Reported Meds & Active Scripts Active Oxycodone (Oxycodone HCl) 5 Mg Tab 1-2 Tab PO Q6HR PRN Reported Senna Laxative (Sennosides) 8.6 Mg Tab Vitamin D (Cholecalciferol) 2,000 Unit Cap Review of Systems Except as stated in HPI: all other systems reviewed are Neg General / Constitutional: Positive: Fever Eyes: No: Visual changes HENT: No: Headaches Cardiovascular: Positive: Chest Pain or Discomfort, Dyspnea on exertion Respiratory: Positive: Shortness of Breath, No: Cough Gastrointestinal: No: Nausea, Vomiting, Diarrhea, Abdominal Pain Genitourinary: No: Dysuria Musculoskeletal: No: Pain Skin: No Rash Neurologic: No: Weakness, Focal Abnormalities, Change in Mentation, Slurred Speech, Sensory Disturbance Psychiatric: No: Depression Endocrine: No: Polydipsia Hematologic/Lymphatic: No: Easy Bruising Physical Exam Narrative General: The patient is a well-developed well-nourished female in no acute distress. Head and Neck exam: Head is normocephalic atraumatic. Eyes: EOMI, pupils are equal round and reactive to light. Nose: Midline septum with pink mucous membranes Mouth: Dentition unremarkable. Moist mucus membranes. Posterior oropharynx is not erythematous. No tonsillar hypertrophy. Uvula midline. Airway patent. Neck: No palpable lymphadenopathy. No nuchal rigidity. No thyromegaly. Cardiovascular: Regular rate and rhythm without murmurs, gallops, or rubs. On examination of the patient's chest wall, the patient has an Honjfy-z-Owky in place along the left upper chest wall. The patient has some tenderness on palpation over the Jnqvop-f-Jcoi site, however there is no erythema or edema, no drainage noted. She reports that this is her usual pain/sensitivity related to the Ealuxe-i-Rfiz , however lower down underneath the Piujuz-z-Rgqq the patient also has new tenderness on palpation which extends down over her breast implant and into the left chest wall along the anterior axillary line mid chest just below the axilla. There is no erythema, edema, overlying rash, or warmth on palpation. There is no crepitus or step-off. There is no flail segment. Lungs: Clear to auscultation bilaterally. No wheezes, rhonchi, or rales. Abdomen: Soft, without tenderness to palpation in all 4 quadrants of the abdomen. No guarding, rebound, or rigidity. Normal bowel sounds are audible. No tenderness on palpation of McBurney's point. Extremities: No clubbing, cyanosis, or edema. 2+ pulses in all 4 extremities. Back: No spinous process tenderness to palpation. Left-sided CVA tenderness on palpation. Patient reports that this right has been chronic since her diagnosis , however it has improved with radiation therapy. Neurologic Exam: Grossly nonfocal. Skin Exam: No rash noted. Intact skin that is warm and dry. Data Data Last Documented VS Vital Signs Date Time Temp Pulse Resp B/P (MAP) Pulse Ox O2 Delivery O2 Flow Rate FiO2 01/23/17 20:45 100 Room Air 01/23/17 19:25 99.7 112 15 Orders Orders Electrocardiogram (01/23/17 20:18) Complete Blood Count With Diff (01/23/17 20:18) Comprehensive Metabolic Panel (01/23/17 20:18) Creatine Kinase (Cpk) (01/23/17 20:18) Ckmb (Isoenzyme) Profile (01/23/17 20:18) Troponin I (01/23/17 20:18) Blood Culture (01/23/17 20:18) C-Reactive Protein (Crp) (01/23/17 20:18) Lipase (01/23/17 20:18) Urinalysis - C+S If Indicated (01/23/17 20:18) D-Dimer (01/23/17 20:18) Magnesium (Mg) (01/23/17 20:18) Chest, Single Ap (01/23/17 20:18) Iv Access Insert/Monitor (01/23/17 20:18) Ecg Monitoring (01/23/17 20:18) Oximetry (01/23/17 20:18) Lactic Acid Sepsis Protocol (01/23/17 20:18) Morphine Inj (Morphine Inj) (01/23/17 21:30) Ondansetron Inj (Zofran Inj) (01/23/17 21:30) Sodium Chlorid 0.9% 500 Ml Inj (Ns 500 M (01/23/17 21:30) Ct Pulmonary Angiogram (01/23/17 21:37) Urine Culture (01/23/17 21:40) Levofloxacin 750 Mg Premix Inj (Levaquin (01/23/17 22:15) Ibuprofen (Motrin) (01/23/17 22:15) Iohexol 350 Inj (Omnipaque 350 Inj) (01/23/17 22:30) Admit Order (Ed Use Only) (01/23/17 22:48) Labs Laboratory Tests Test 01/23/17 20:20 01/23/17 21:40 White Blood Count 2.9 TH/MM3 Red Blood Count 3.79 MIL/MM3 Hemoglobin 11.6 GM/DL Hematocrit 36.1 % Mean Corpuscular Volume 95.4 FL Mean Corpuscular Hemoglobin 30.7 PG Mean Corpuscular Hemoglobin Concent 32.2 % Red Cell Distribution Width 16.3 % Platelet Count 348 TH/MM3 Mean Platelet Volume 7.6 FL Neutrophils (%) (Auto) 65.8 % Lymphocytes (%) (Auto) 22.2 % Monocytes (%) (Auto) 9.5 % Eosinophils (%) (Auto) 1.8 % Basophils (%) (Auto) 0.7 % Neutrophils # (Auto) 1.9 TH/MM3 Lymphocytes # (Auto) 0.6 TH/MM3 Monocytes # (Auto) 0.3 TH/MM3 Eosinophils # (Auto) 0.1 TH/MM3 Basophils # (Auto) 0.0 TH/MM3 CBC Comment DIFF FINAL Differential Comment D-Dimer Quantitative (PE/DVT) 2.62 MG/L FEU Blood Urea Nitrogen 5 MG/DL Creatinine 0.67 MG/DL Random Glucose 85 MG/DL Total Protein 7.6 GM/DL Albumin 3.4 GM/DL Calcium Level 8.5 MG/DL Magnesium Level 2.1 MG/DL Alkaline Phosphatase 129 U/L Aspartate Amino Transf (AST/SGOT) 54 U/L Alanine Aminotransferase (ALT/SGPT) 33 U/L Total Bilirubin 1.0 MG/DL Sodium Level 137 MEQ/L Potassium Level 3.8 MEQ/L Chloride Level 105 MEQ/L Carbon Dioxide Level 24.3 MEQ/L Anion Gap 8 MEQ/L Estimat Glomerular Filtration Rate 113 ML/MIN Lactic Acid Level 1.4 mmol/L Total Creatine Kinase 66 U/L Troponin I LESS THAN 0.02 NG/ML C-Reactive Protein 1.30 MG/DL Lipase 709 U/L Urine Color YELLOW Urine Turbidity CLEAR Urine pH 8.0 Urine Specific [place] 1.012 Urine Protein NEG mg/dL Urine Glucose (UA) NEG mg/dL Urine Ketones TRACE mg/dL Urine Occult Blood NEG Urine Nitrite NEG Urine Bilirubin NEG Urine Urobilinogen 4.0 MG/DL Urine Leukocyte Esterase SMALL Urine WBC 11 /hpf Urine Squamous Epithelial Cells 1 /hpf Microscopic Urinalysis Comment CULTURE INDICATED MDM Medical Decision Making Medical Screen Exam Complete: Yes Emergency Medical Condition: Yes Medical Record Reviewed: Yes Interpretation(s) Last Impressions Chest X-Ray 01/23/172017 Signed Impressions: Service Date/Time: Monday, January 23, 2017 20:37 - CONCLUSION: Hypoaeration of the lung redd with bibasilar atelectasis. No change. Pavan Cornell MD Differential Diagnosis Aiibro-j-Ayva infection, versus extravasation, versus musculoskeletal strain, versus bony metastasis, versus infectious process, versus pulmonary embolism Narrative Course During the course of the patients emergency department visit, the patients history, examination, and differential diagnosis were reviewed with the patient. The patient had IV access obtained and blood work sent for analysis. The patient was placed on a cardiac specialist with oximetry and frequent blood pressure monitoring. The patient had an ECG done on arrival. The patient's ECG reveals a sinus tachycardia rate of 103, borderline left axis deviation, QRS duration 72 ms, QTC [address] segment elevation or depression, T waves are inverted in lead 3, aVF The patient was initially provided morphine 4 mg IV for pain, Zofran 4 mg IV for nausea, normal saline IV fluids 500 mL bolus. The patient was given ibuprofen 400 mg by mouth 1 for elevated temperature. The patients laboratory studies were reviewed and remarkable for a white count of 2.9, hemoglobin 11.6, platelets 348 with 9.5 monocytes, CMP is remarkable for a BUN of 5, AST 54, alkaline phosphatase 129, CPK 66, troponin I less than 0.02, C-reactive protein 1.3, lipase 709, lactic acid 1.4, d-dimer 2.62, therefore CTA to rule out PE was ordered. Urinalysis shows trace ketones, 4 urobilinogen, small leukocyte esterase, 11 wbc's. The patient was started on Levaquin 750 mg IV times one. Radiology studies were reviewed and remarkable for a chest x-ray that shows hypoaeration of the lung redd with bibasilar atelectasis, no other acute changes, CTA reveals no evidence of pulmonary embolism, however new scattered bilateral infiltrates compared to her prior examination on November 13 suggesting bilateral inflammatory process such as pneumonia. The patients results were discussed with the patient, including the plan of care. I explained that further testing and/ or monitoring is indicated based on the patients history, examination, and/ or laboratory findings. Therefore, I recommended admission for additional evaluation. The patient expressed understanding and was agreeable with this plan. The patient was admitted to the hospital in stable condition and [facility] Physician Communication Physician Communication The patient's case was discussed with Dr. Ferro who did agree to admit the patient for further evaluation and treatment at this time. Diagnosis Primary Impression: Pneumonia Qualified Codes: J18.9 - Pneumonia, unspecified organism Admitting Information Admitting Physician Requests: Kimmie Mcneill MD Jan 23, 2017 20:18
[2017-01-23 20:45] VITALS: O2SAT 100
--- NOTE | 2017-01-23 20:48 | RADRPT ---
EXAM DATE/TIME: 01/23/2017 20:37 [facility] COMPARISON: CHEST SINGLE AP, November 16, 2016, 8:40. INDICATIONS : Chest pain. MEDICAL HISTORY : Carcinoma, breast. Carcinoma, bone. SURGICAL HISTORY : Port placement. ENCOUNTER: Initial ACUITY: 1 day PAIN SCORE: 7/10 LOCATION: Left chest FINDINGS: A single view of the chest demonstrates hypoaeration of both lung redd with some bibasilar atelecta sis. This is stable and unchanged compared to the prior examination. The heart and bony structures ar e stable. No significant changes.. CONCLUSION: Hypoaeration of the lung redd with bibasilar atelectasis. No change. Pavan Cornell MD on January 23, 2017 at 20:45 Board Certified Radiologist. This report was verified electronically.
[2017-01-23 21:23] LABS: AUTOMATED NEUTROPHIL # 1.9 TH/MM3 (1.8-7.7); BASOPHIL % 0.7 % (0.0-2.0); EOSINOPHIL # 0.1 TH/MM3 (0-0.4); EOSINOPHIL % 1.8 % (0.0-4.0); HEMATOCRIT 36.1 % (35.0-46.0); HEMO FLAGS DIFF FINAL; LYMPH % 22.2 % (9.0-44.0); LYMPHOCYTE # 0.6 TH/MM3 (1.0-4.8); MEAN CELL VOLUME 95.4 FL (80.0-100.0); MEAN CORPUSCULAR HEMOGLOBIN 30.7 PG (27.0-34.0); MEAN CORPUSCULAR HGB CONC 32.2 % (32.0-36.0); MONO % 9.5 % (0.0-8.0); NEUT % 65.8 % (16.0-70.0); PLATELET COUNT 348 TH/MM3 (150-450); RED BLOOD COUNT 3.79 MIL/MM3 (4.00-5.30); RED CELL DISTRIBUTION WIDTH 16.3 % (11.6-17.2); WHITE BLOOD COUNT 2.9 TH/MM3 (4.0-11.0)
[2017-01-23 21:28] LABS: ALT (GPT) 33 U/L (10-53); ANION GAP 8 MEQ/L (5-15); AST (GOT) 54 U/L (15-37); BICARBONATE 24.3 MEQ/L (21.0-32.0); BLOOD UREA NITROGEN 5 MG/DL (7-18); CHLORIDE 105 MEQ/L (98-107); GLOMERULAR FILTRATION RATE 113 ML/MIN (>89); MAGNESIUM 2.1 MG/DL (1.5-2.5); POTASSIUM 3.8 MEQ/L (3.5-5.1); SODIUM (NA) 137 MEQ/L (136-145)
[2017-01-23] MEDS ORDERED: MORPHINE SULFATE 4 MG/ML INJ IV PUSH ONE (21:30)
[2017-01-23] MEDS ORDERED: ONDANSETRON HCL 4 MG/2 ML VIAL IV PUSH ONE (21:30)
[2017-01-23] MEDS ORDERED: SODIUM CHLORID 0.9% 500 ML INJ 500 ML IV ONE (21:30)
[2017-01-23 21:31] LABS: ALKALINE PHOSPHATASE 129 U/L (45-117)
[2017-01-23 21:35] LABS: CREATINE KINASE 66 U/L (26-192)
[2017-01-23 22:03] LABS: BLOOD, URINE NEG (NEG); COMMENT (UR) CULTURE INDICATED; CULTURE IF INDICATED CULTURE INDICATED; GLUCOSE,URINE NEG (NEG); KETONE, URINE TRACE mg/dL (NEG); NITRITE,URINE NEG (NEG); SQUAMOUS EPITHELIAL CELL URINE 1 /hpf (0-5); URINE COLOR YELLOW (YELLW/STRAW)
[2017-01-23] MEDS ORDERED: LEVOFLOXACIN 750 MG PREMIX INJ 150 ML IV ONE (22:15)
[2017-01-23] MEDS ORDERED: IBUPROFEN 400 MG TAB PO ONE (22:15)
[2017-01-23] MEDS ORDERED: IOHEXOL 350 MG/ML 10 ML VIAL (for RAD DIAG) IVCONTRAST ONE (22:30)
--- NOTE | 2017-01-23 22:39 | RADRPT ---
EXAM DATE/TIME: 01/23/2017 22:17 [facility] COMPARISON: CT THORAX W/O CONTRAST, November 13, 2016, 12:34. CT NEEDLE BIOPSY LIVER, November 13, 2016, 12:48. INDICATIONS : Left side chest pain and shortness of breath post chemotherapy today. IV CONTRAST: 50 cc Omnipaque 350 (iohexol) IV RADIATION DOSE: 22.7 CTDIvol (mGy) MEDICAL HISTORY : Carcinoma, breast. Metastatic, liver. Metastatic, bone. SURGICAL HISTORY : Mastectomy, bilateral. Hysterectomy.Chemo and radiation therapy. Infusaport. ENCOUNTER: Initial ACUITY: 1 day PAIN SCALE: 8/10 LOCATION: chest TECHNIQUE: Volumetric scanning of the chest was performed using a pulmonary embolism protocol MIP images were re constructed. Using automated exposure control and adjustment of the mA and/or kV according to patien t size, radiation dose was kept as low as reasonably achievable to obtain optimal diagnostic quality images. DICOM format image data is available electronically for review and comparison. Follow-up recommendations for detected pulmonary nodules are based at a minimum on nodule size and pa tient risk factors according to Fleischner Society Guidelines. FINDINGS: PULMONARY ARTERIES: No filling defects are seen in the pulmonary arteries through the segmental level. LUNGS: There is a 1.2 cm nodular infiltrate in the left upper lung which is new compared to the recent CT th orax. There are new scattered parenchymal infiltrates in both lung bases compared to the prior study. There is elevation the right hemidiaphragm. PLEURAE: There is no pleural thickening or pleural effusion. MEDIASTINUM: There is good visualization of the great vessels of the middle mediastinum. No evidence of mediastin al or hilar adenopathy/mass. MUSCULOSKELETAL: Within normal limits for patient age. MISCELLANEOUS: Multiple masses are again demonstrated throughout the liver. These were recently biopsied in October of 2016. CONCLUSION: 1. No evidence of pulmonary embolism 2. New scattered bilateral infiltrates compared to the prior exam of 11/13/2016 suggesting bilateral inflammatory process such as pneumonia. 3. Multiple large diffuse liver masses. Not significantly changed. Pavan Cornell MD on January 23, 2017 at 22:32 Board Certified Radiologist. This report was verified electronically.
[2017-01-23] MEDS ORDERED: NALOXONE HCL 0.4 MG/ML AMP IV PRN (23:00)
[2017-01-23] MEDS ORDERED: oxyCODONE/ACETAMINOPHEN 5 MG/325 MG TAB PO PRN (23:00)
[2017-01-23 23:22] VITALS: BP 134/83; PULSE 102; RESP 16; TEMP 99.6; O2SAT 95
[2017-01-24] MEDS: oxyCODONE/ACETAMINOPHEN 10 MG/325 MG TAB PO PRN ×2 (00:23→07:19)
[2017-01-24 00:40] VITALS: BP 112/81; PULSE 98; RESP 18; TEMP 97.6; O2SAT 96
[2017-01-24 04:00] VITALS: BP 106/67; PULSE 83; RESP 18; TEMP 96.2; O2SAT 95
--- NOTE | 2017-01-24 06:48 | HHI.HP ---
HPI Service [facility] Hospitalists Primary Care Physician Bekah Hinton MD Admission Diagnosis Pneumonia, on chemotherapy for metastatic breast ca Chief Complaint: Left scapular, upper chest, shoulder pain Travel History International Travel<30 Days: No Contact w/Intl Traveler <30 Da: No Traveled to Known Affected Are: No History of Present Illness The patient is a 51 year old female with metastatic breast CA who presents to the [facility] emergency department with a history of awakening from a nap after chemotherapy 01/23 afternoon around 5 PM with the pain along her left chest wall underneath her [id number] and into the left side of her chest wall and over her breast implant on the left. She denies having any swelling or redness associated with this. She denies having any known fevers all day on arrival her temperature was elevated at 99.6. She reports that during the chemotherapy she did not have any significant pain. She reports that she completed the chemotherapy at 3:30 PM and went home and took a nap. She reports having some shortness of breath, however she reports that she has shortness of breath typically after completing her chemotherapy. She denies having any significant cough or congestion. No phlegm production. She reports that she did not take a pain pill prior to arrival as this was a different site of pain than her usual pain in the flank. She reports that her bony pain related to metastasis had improved since completing radiation therapy at the end of November. She reports that she called her oncologist and spoke to the oncologist on-call, Dr. Clay who recommended that she come in for evaluation related to the pain. The patient reports that the pain radiates up into the left side of her neck. On review of systems, the patient denies any abdominal pain, vomiting, diarrhea, urinary symptoms, or neurologic symptoms. She reports that she has been moving her bowels regularly on her stool softener. No trauma. No recent falls. No bruising. CTA of chest demonstrates bilat infiltrates, but no PE and no change in liver mets. Review of Systems Constitutional: COMPLAINS OF: Fatigue, DENIES: Diaphoretic episodes, Fever, Weight gain, Weight loss, Chills, Dizziness, Change in appetite, Night Sweats Eyes: DENIES: Blurred vision, Diplopia, Eye inflammation, Eye pain, Vision loss , Photosensitivity, Double Vision Ears, nose, mouth, throat: DENIES: Tinnitus, Hearing loss, Vertigo, Nasal discharge, Oral lesions, Throat pain, Hoarseness, Ear Pain, Running Nose, Epistaxis, Sinus Pain, Toothache, Odynophagia Respiratory: COMPLAINS OF: Shortness of breath, DENIES: Apneas, Cough, Snoring , Wheezing, Hemoptysis, Sputum production Cardiovascular: COMPLAINS OF: Chest pain, DENIES: Palpitations, Syncope, Dyspnea on Exertion, PND, Lower Extremity Edema, Orthopnea, Claudication Gastrointestinal: COMPLAINS OF: Nausea, DENIES: Abdominal pain, Black stools, Bloody stools, BRB per rectum, Constipation, Diarrhea, GERD, Reflux, Vomiting, Difficulty Swallowing, Anorexia, See HPI Musculoskeletal: COMPLAINS OF: Muscle aches, Neck pain Hematologic/lymphatic: DENIES: Bruising, Lymphadenopathy Immunologic/allergic: DENIES: Eczema, Urticaria Neurologic: DENIES: Abnormal gait, Headache, Localized weakness, Paresthesias, Seizures, Speech Problems, Tremor, Poor Balance Psychiatric: DENIES: Anxiety, Confusion, Mood changes, Depression, Hallucinations, Agitation, Suicidal Ideation, Homicidal Ideation, Delusions, History of Bipolar, History of Schizophrenia Past Family Social History Past Medical History Metastatic breast CA (liver mets, likely source of bony mets to Tspine) vit D def Meningioma Past Surgical History Hysterectomy BTL Bilat mastectomy with reconstruction Port placement Reported Medications Oxycodone (Oxycodone HCl) 5 Mg Tab 1-2 Tab PO Q6HR PRN Senna Laxative (Sennosides) 8.6 Mg Tab Vitamin D (Cholecalciferol) 2,000 Unit Cap Allergies: Coded Allergies: acetaminophen (Unverified Allergy, Unknown, Itching, 01/09/17) oxycodone (Unverified Allergy, Unknown, Itching, 01/09/17) Family History Mother with breast CA and heart disease Social History NO tobacco, EtOH or illicit drug use. Works in [employer] Physical Exam Vital Signs Vital Signs Date Time Temp Pulse Resp B/P (MAP) Pulse Ox O2 Delivery O2 Flow Rate FiO2 01/24/17 04:00 96.2 83 18 106/67 (80) 95 01/24/17 00:40 97.6 98 18 112/81 (91) 96 01/23/17 23:22 99.6 102 16 134/83 (100) 95 Room Air 01/23/17 20:45 100 Room Air 8/29/17 19:25 99.7 112 15 119/74 (89) 97 Room Air Physical Exam Exam conducted in ER appx 8:50 PM 01/23/17 GENERAL: This is a well-nourished, well-developed patient, in no apparent distress. SKIN: Left upper chest with port in place and appropriate scarring, no redness or induration noted. Cool and dry. HEAD: Atraumatic. Normocephalic. No temporal or scalp tenderness. EYES: Pupils equal round and reactive. Extraocular motions intact. No scleral icterus. No injection or drainage. ENT: Nose without bleeding, purulent drainage or septal hematoma. Airway patent. NECK: Trachea midline. No JVD or lymphadenopathy. Supple, nontender, no meningeal signs. CARDIOVASCULAR: Regular rate and rhythm without murmurs, gallops, or rubs. RESPIRATORY: Clear to auscultation. Breath sounds equal bilaterally. No wheezes , rales, or rhonchi. GASTROINTESTINAL: Abdomen soft, non-tender, nondistended. No hepato-splenomegaly , or palpable masses. No guarding. MUSCULOSKELETAL: Extremities without clubbing, cyanosis, or edema. TTP over left upper chest and left scapula. No calf tenderness. NEUROLOGICAL: Awake and alert. Cranial nerves II through XII intact. Motor and sensory grossly within normal limits. Five out of 5 muscle strength in all muscle groups. Normal speech. Laboratory Laboratory Tests Test 01/23/17 20:20 01/23/17 21:40 White Blood Count 2.9 Red Blood Count 3.79 Hemoglobin 11.6 Hematocrit 36.1 Mean Corpuscular Volume 95.4 Mean Corpuscular Hemoglobin 30.7 Mean Corpuscular Hemoglobin Concent 32.2 Red Cell Distribution Width 16.3 Platelet Count 348 Mean Platelet Volume 7.6 Neutrophils (%) (Auto) 65.8 Lymphocytes (%) (Auto) 22.2 Monocytes (%) (Auto) 9.5 Eosinophils (%) (Auto) 1.8 Basophils (%) (Auto) 0.7 Neutrophils # (Auto) 1.9 Lymphocytes # (Auto) 0.6 Monocytes # (Auto) 0.3 Eosinophils # (Auto) 0.1 Basophils # (Auto) 0.0 CBC Comment DIFF FINAL Differential Comment D-Dimer Quantitative (PE/DVT) 2.62 Blood Urea Nitrogen 5 Creatinine 0.67 Random Glucose 85 Total Protein 7.6 Albumin 3.4 Calcium Level 8.5 Magnesium Level 2.1 Alkaline Phosphatase 129 Aspartate Amino Transf (AST/SGOT) 54 Alanine Aminotransferase (ALT/SGPT) 33 Total Bilirubin 1.0 Sodium Level 137 Potassium Level 3.8 Chloride Level 105 Carbon Dioxide Level 24.3 Anion Gap 8 Estimat Glomerular Filtration Rate 113 Lactic Acid Level 1.4 Total Creatine Kinase 66 Troponin I LESS THAN 0.02 C-Reactive Protein 1.30 Lipase 709 Urine Color YELLOW Urine Turbidity CLEAR Urine pH 8.0 Urine Specific [place] 1.012 Urine Protein NEG Urine Glucose (UA) NEG Urine Ketones TRACE Urine Occult Blood NEG Urine Nitrite NEG Urine Bilirubin NEG Urine Urobilinogen 4.0 Urine Leukocyte Esterase SMALL Urine WBC 11 Urine Squamous Epithelial Cells 1 Microscopic Urinalysis Comment CULTURE INDICATED Date/Time Source Procedure Growth Status 01/23/17 20:35 Blood Peripheral Aerobic Blood Culture Pending Received 01/23/17 20:35 Blood Peripheral Anaerobic Blood Culture Pending Received 01/23/17 21:40 Urine Random Urine Urine Culture Pending Received Result Diagram: 01/23/17201901/23/172019 Imaging Last [address] Angiography 01/23/172136 Signed Impressions: Service Date/Time: Monday, January 23, 2017 22:17 - CONCLUSION: 1. No evidence of pulmonary embolism 2. New scattered bilateral infiltrates compared to the prior exam of 11/13/2016 suggesting bilateral inflammatory process such as pneumonia. 3. Multiple large diffuse liver masses. Not significantly changed. Pavan Cornell MD Chest X-Ray 01/23/172017 Signed Impressions: Service Date/Time: Monday, January 23, 2017 20:37 - CONCLUSION: Hypoaeration of the lung redd with bibasilar atelectasis. No change. Pavan Cornell MD Caprini VTE Risk Assessment Caprini VTE Risk Assessment: Mod/High Risk (score >= 2) Caprini Risk Assessment Model Point Value = 1 Point Value = 2 Point Value = 3 Point Value = 5 Age 41-60 Minor surgery BMI > 25 kg/m2 Swollen legs Varicose veins or History of unexplained or recurrent spontaneous Oral contraceptives or hormone replacement Sepsis (< 1 month) Serious lung disease, including pneumonia (< 1 month) Abnormal pulmonary function Acute myocardial infarction Congestive heart failure (< 1 month) History of inflammatory bowel disease Medical patient at bed rest Age 61-74 Arthroscopic surgery Major open surgery (> 45 min) Laparoscopic surgery (> 45 min) Malignancy Confined to bed (> 72 hours) Immobilizing plaster cast Central venous access Age >= 75 History of VTE Family history of VTE Factor V Leiden Prothrombin [id number] Lupus anticoagulant Anticardiolipin antibodies Elevated serum homocysteine Heparin-induced thrombocytopenia Other congenital or acquired thrombophilia Stroke (< 1 month) Elective arthroplasty Hip, pelvis, or leg fracture Acute spinal cord injury (< 1 month) Prophylaxis Regimen Total Risk Factor Score Risk Level Prophylaxis Regimen 0-1 Low Early ambulation 2 Moderate Order ONE of the following: *Sequential Compression Device (SCD) *Heparin 5000 units SQ BID 3-4 Higher Order ONE of the following medications: *Heparin 5000 units SQ TID *Enoxaparin/Lovenox 40 mg SQ daily (WT < 150 kg, CrCl > 30 mL/min) *Enoxaparin/Lovenox 30 mg SQ daily (WT < 150 kg, CrCl > 10-29 mL/min) *Enoxaparin/Lovenox 30 mg SQ BID (WT < 150 kg, CrCl > 30 mL/min) AND/OR *Sequential Compression Device (SCD) 5 or more Highest Order ONE of the following medications: *Heparin 5000 units SQ TID (Preferred with Epidurals) *Enoxaparin/Lovenox 40 mg SQ daily (WT < 150 kg, CrCl > 30 mL/min) *Enoxaparin/Lovenox 30 mg SQ daily (WT < 150 kg, CrCl > 10-29 mL/min) *Enoxaparin/Lovenox 30 mg SQ BID (WT < 150 kg, CrCl > 30 mL/min) AND *Sequential Compression Device (SCD) Assessment and Plan Problem List: (1) Pneumonia ICD Codes: J18.9 - Pneumonia, unspecified organism Status: Acute Plan: Pt has been started on Levaquin. she is minimally symptomatic and quite stable from resp standpoint. May consider dose of steroid if chest wall pain continues. (2) Metastatic breast cancer ICD Codes: C50.919 - Malignant neoplasm of unspecified site of unspecified female breast Status: Acute Plan: continue outpt treatment. (3) Left-sided chest wall pain ICD Codes: R07.89 - Other chest pain Status: Acute Plan: ? etiology. Pain is localized primarily in left neck, shoulder, chest wall around port site. Will monitor. (4) Meningioma ICD Codes: D32.9 - Benign neoplasm of meninges, unspecified Status: Acute Plan: No current symptoms suggestive of neurologic compromise. Code Status Full Discussed Condition With Patient, Dr Ferro, pt family Physician Certification 2 Midnight Certification Type: Admission for Inpatient Services Order for Inpatient Services The services are ordered in accordance with Medicare regulations or non- Medicare payer requirements, as applicable. In the case of services not specified as inpatient-only, they are appropriately provided as inpatient services in accordance with the 2-midnight benchmark. Estimated LOS (days): 2 days is the estimated time the patient will need to remain in the hospital, assuming treatment plan goals are met and no additional complications. Post-Hospital Plan: Home Problem Qualifiers (1) Pneumonia: Qualified Codes: J18.9 - Pneumonia, unspecified organism Steven Kraus MD PhD Jan 24, 2017 06:48
[2017-01-24] MEDS ORDERED: ONDANSETRON HCL 4 MG/2 ML VIAL IV PUSH PRN (07:15)
[2017-01-24 07:50] VITALS: BP 101/69; PULSE 81; RESP 20; TEMP 97.7; O2SAT 94
[2017-01-24] MEDS: ENOXAPARIN SODIUM 40 MG/0.4 ML SYRINGE SQ SCH (09:30)
[2017-01-24 10:52] LABS: BASOPHIL % 1.5 % (0.0-2.0); EOSINOPHIL # 0.1 TH/MM3 (0-0.4); EOSINOPHIL % 3.7 % (0.0-4.0); HEMATOCRIT 33.9 % (35.0-46.0); LYMPH % 28.1 % (9.0-44.0); LYMPHOCYTE # 0.5 TH/MM3 (1.0-4.8); MEAN CELL VOLUME 95.7 FL (80.0-100.0); MEAN CORPUSCULAR HEMOGLOBIN 31.4 PG (27.0-34.0); MEAN CORPUSCULAR HGB CONC 32.8 % (32.0-36.0); MONO % 9.1 % (0.0-8.0); NEUT % 57.6 % (16.0-70.0); PLATELET COUNT 288 TH/MM3 (150-450); RED BLOOD COUNT 3.55 MIL/MM3 (4.00-5.30); RED CELL DISTRIBUTION WIDTH 16.7 % (11.6-17.2); WHITE BLOOD COUNT 1.8 TH/MM3 (4.0-11.0)
[2017-01-24 10:53] LABS: BICARBONATE 21.8 MEQ/L (21.0-32.0); POTASSIUM 3.4 MEQ/L (3.5-5.1)
[2017-01-24 11:13] LABS: HEMO FLAGS AUTO DIFF
[2017-01-24 11:50] VITALS: BP 101/68; PULSE 83; RESP 20; TEMP 97.7; O2SAT 96
[2017-01-24 12:47] LABS: BANDS 13 % (0-6); BLASTS 1 % (0-0); EOSINOPHILS 1 % (0-4); METAMYELOCYTES 2 % (0-1); NEUTROPHIL # MANUAL DIFF 1.5 TH/MM3 (1.8-7.7); POLYS (SEG NEUTROPHILS) 66 % (16-70); WBC DIFF SAMPLE 100
[2017-01-24 12:49] LABS: PLATELET ESTIMATE SMEAR NORMAL (NORMAL); PLATELET MORPHOLOGY NORMAL (NORMAL); SCAN/DIFF FINAL DIFF MANUAL
[2017-01-24] MEDS: DOCUSATE SODIUM 100 MG CAP PO SCH ×2 (15:00→20:22)
[2017-01-24 15:50] VITALS: BP 103/62; PULSE 87; RESP 20; TEMP 97.1; O2SAT 95
--- NOTE | 2017-01-24 17:14 | EKG ---
Date Performed: 01/23/2017 Time Performed: 20:52:57 PTAGE: 51 years EKG: SINUS TACHYCARDIA BORDERLINE LEFT AXIS DEVIATION VOLTAGE CRITERIA FOR LVH Nonspecific ST-T changes Compared to previous tracing, the patient is now tachycardic and meets criteria for LVH ABNOR MAL ECG PREVIOUS TRACING : 09/24/2013 07.12 DOCTOR: Sendy Gibson Interpretating Date/Time 01/24/2017 17:07:03
[2017-01-24 20:00] VITALS: BP 108/68; PULSE 86; RESP 17; TEMP 96.5; O2SAT 98
[2017-01-24] MEDS: oxyCODONE/ACETAMINOPHEN 5 MG/325 MG TAB PO PRN (20:23)
[2017-01-24] MEDS ORDERED: LEVOFLOXACIN 750 MG PREMIX INJ 150 ML IV SCH (21:00)
[2017-01-25] VITALS: BP 104/68; PULSE 94; RESP 18; TEMP 97.5; O2SAT 96
[2017-01-25 04:00] VITALS: BP 100/67; PULSE 95; RESP 18; TEMP 97.5; O2SAT 96
[2017-01-25] MEDS: oxyCODONE/ACETAMINOPHEN 5 MG/325 MG TAB PO PRN ×3 (04:25→16:15)
[2017-01-25 08:00] VITALS: BP 104/70; PULSE 91; RESP 16; TEMP 97.9; O2SAT 95
[2017-01-25] MEDS ORDERED: POTASSIUM CHLORIDE 20 MEQ CONTROLLED RELEASE TAB PO ONE (08:45)
--- NOTE | 2017-01-25 08:53 | HHI.PR ---
Subjective Remarks Pt still having left chest wall pain and the left side of her back but this is improving. The pain is not worse with movement Minimal cough Afebrile Objective Vitals Vital Signs Date Time Temp Pulse Resp B/P (MAP) Pulse Ox O2 Delivery O2 Flow Rate FiO2 01/25/17 04:00 97.5 95 18 100/67 (78) 96 01/25/17 00:00 97.5 94 18 104/68 (80) 96 01/24/17 20:00 96.5 86 17 108/68 (81) 98 01/24/17 15:50 97.1 87 20 103/62 (76) 95 01/24/17 11:50 97.7 83 20 101/68 (79) 96 Result Diagram: 01/24/17 0855 01/24/17 0855 Other Results Laboratory Tests Test 01/23/17 20:20 01/23/17 21:40 01/24/17 08:55 White Blood Count 2.9 TH/MM3 1.8 TH/MM3 Red Blood Count 3.79 MIL/MM3 3.55 MIL/MM3 Hemoglobin 11.6 GM/DL 11.1 GM/DL Hematocrit 36.1 % 33.9 % Mean Corpuscular Volume 95.4 FL 95.7 FL Mean Corpuscular Hemoglobin 30.7 PG 31.4 PG Mean Corpuscular Hemoglobin Concent 32.2 % 32.8 % Red Cell Distribution Width 16.3 % 16.7 % Platelet Count 348 TH/MM3 288 TH/MM3 Mean Platelet Volume 7.6 FL 8.1 FL Neutrophils (%) (Auto) 65.8 % 57.6 % Lymphocytes (%) (Auto) 22.2 % 28.1 % Monocytes (%) (Auto) 9.5 % 9.1 % Eosinophils (%) (Auto) 1.8 % 3.7 % Basophils (%) (Auto) 0.7 % 1.5 % Neutrophils # (Auto) 1.9 TH/MM3 1.0 TH/MM3 Lymphocytes # (Auto) 0.6 TH/MM3 0.5 TH/MM3 Monocytes # (Auto) 0.3 TH/MM3 0.2 TH/MM3 Eosinophils # (Auto) 0.1 TH/MM3 0.1 TH/MM3 Basophils # (Auto) 0.0 TH/MM3 0.0 TH/MM3 CBC Comment DIFF FINAL AUTO DIFF Differential Comment FINAL DIFF MANUAL D-Dimer Quantitative (PE/DVT) 2.62 MG/L FEU Blood Urea Nitrogen 5 MG/DL 6 MG/DL Creatinine 0.67 MG/DL 0.54 MG/DL Random Glucose 85 MG/DL 75 MG/DL Total Protein 7.6 GM/DL Albumin 3.4 GM/DL Calcium Level 8.5 MG/DL 8.1 MG/DL Magnesium Level 2.1 MG/DL Alkaline Phosphatase 129 U/L Aspartate Amino Transf (AST/SGOT) 54 U/L Alanine Aminotransferase (ALT/SGPT) 33 U/L Total Bilirubin 1.0 MG/DL Sodium Level 137 MEQ/L 140 MEQ/L Potassium Level 3.8 MEQ/L 3.4 MEQ/L Chloride Level 105 MEQ/L 107 MEQ/L Carbon Dioxide Level 24.3 MEQ/L 21.8 MEQ/L Anion Gap 8 MEQ/L 11 MEQ/L Estimat Glomerular Filtration Rate 113 ML/MIN 145 ML/MIN Lactic Acid Level 1.4 mmol/L Total Creatine Kinase 66 U/L Troponin I LESS THAN 0.02 NG/ML C-Reactive Protein 1.30 MG/DL Lipase 709 U/L 331 U/L Urine Color YELLOW Urine Turbidity CLEAR Urine pH 8.0 Urine Specific [place] 1.012 Urine Protein NEG mg/dL Urine Glucose (UA) NEG mg/dL Urine Ketones TRACE mg/dL Urine Occult Blood NEG Urine Nitrite NEG Urine Bilirubin NEG Urine Urobilinogen 4.0 MG/DL Urine Leukocyte Esterase SMALL Urine WBC 11 /hpf Urine Squamous Epithelial Cells 1 /hpf Microscopic Urinalysis Comment CULTURE INDICATED Differential Total Cells Counted 100 Neutrophils % (Manual) 66 % Band Neutrophils % 13 % Lymphocytes % 9 % Monocytes % 8 % Eosinophils % 1 % Neutrophils # (Manual) 1.5 TH/MM3 Metamyelocytes 2 % Atypical Lymphocytes % Blastocytes 1 % Platelet Estimate NORMAL Platelet Morphology Comment NORMAL Red Cell Morphology Comment NORMAL Imaging Last [address] Angiography 01/23/172136 Signed Impressions: Service Date/Time: Monday, January 23, 2017 22:17 - CONCLUSION: 1. No evidence of pulmonary embolism 2. New scattered bilateral infiltrates compared to the prior exam of 11/13/2016 suggesting bilateral inflammatory process such as pneumonia. 3. Multiple large diffuse liver masses. Not significantly changed. Pavan Cornell MD Chest X-Ray 01/23/172017 Signed Impressions: Service Date/Time: Monday, January 23, 2017 20:37 - CONCLUSION: Hypoaeration of the lung redd with bibasilar atelectasis. No change. Pavan Cornell MD Objective Remarks General: NAD, AAOx3 Chest: Cardiac: Abd: Ext: A/P Problem List: (1) Pneumonia ICD Codes: J18.9 - Pneumonia, unspecified organism Status: Acute Plan: - Pt is a 51 y/o female with metastatic breast cancer who was admitted with left chest wall pain. - Labs at admission showed a negative set of CE - D-Dimer was elevated - CTA (01/24/17) --> No evidence of pulmonary embolism. New scattered bilateral infiltrates compared to the prior exam of 11/13/2016 suggesting bilateral inflammatory process such as pneumonia. Multiple large diffuse liver masses. Not significantly changed. - Pt was started on IV Levaquin. - She is minimally symptomatic and quite stable from resp standpoint. - Pt symptomatically is feeling better today - We will convert to oral Levaquin 500mg po daily x 5 total days and plan for discharge to home today. (2) Metastatic breast cancer ICD Codes: C50.919 - Malignant neoplasm of unspecified site of unspecified female breast Status: Acute Plan: - Continue outpt treatment. (3) Left-sided chest wall pain ICD Codes: R07.89 - Other chest pain Status: Acute Plan: - Seems to be more of a chest wall pain, its reproducible on examination. - Pain is localized primarily in left neck, shoulder, chest wall around port site. (4) Meningioma ICD Codes: D32.9 - Benign neoplasm of meninges, unspecified Status: Acute Plan: - No current symptoms suggestive of neurologic compromise. Assessment and Plan Patient examined. Assessment and plan formulated with Shreya Gonzalez PA-C. I agree with the above. Pt felt overall improved from admission. Pt had reproducible pain on palpation at left chest wall. Pt denies SOB, n/v, or diaphoresis. Pt denied fever, chills, or cough. Discharge to home on levaquin 500mg for 5d total. F/U with PCP, Dr. Bekah Hinton F/u with Oncology Problem Qualifiers (1) Pneumonia: Qualified Codes: J18.9 - Pneumonia, unspecified organism Shreya Gonzalez Jan 25, 2017 08:53 Mauricio Figueroa DO Jan 25, 2017 09:35
--- NOTE | 2017-01-25 09:09 | HHI.DCPOC ---
Discharge Care Plan Diagnosis: (1) Left-sided chest wall pain (2) Metastatic breast cancer (3) Pneumonia Goals to Promote Your Health * To prevent worsening of your condition and complications * To maintain your health at the optimal level Directions to Meet Your Goals Take your medications as prescribed Follow your dietary instruction Follow activity as directed Keep your appointments as scheduled Take your immunizations and boosters as scheduled If your symptoms worsen call your PCP, if no PCP go to Urgent Care Center or Emergency Room Smoking is Dangerous to Your Health. Avoid second hand smoke Call the 24-hour hour crisis hotline for domestic abuse at Shreya Gonzalez Jan 25, 2017 09:09 Mauricio Figueroa DO Jan 25, 2017 09:38
[2017-01-25] MEDS: ENOXAPARIN SODIUM 40 MG/0.4 ML SYRINGE SQ SCH (09:10)
[2017-01-25] MEDS: DOCUSATE SODIUM 100 MG CAP PO SCH (09:10)
[2017-01-25] MEDS ORDERED: LEVO500T8 PO (09:10)
[2017-01-25 12:38] VITALS: BP 101/66; PULSE 87; RESP 16; TEMP 96.6; O2SAT 96
== END 2017-01-25 17:34 | disposition home or self-care (01) | DRG 194 ==
LOC: NEPE 19:22 → NEDA 22:52 → HOCA 01-24 00:10
PROVIDERS: ADMIT Hospitalist; ATTEND Hospitalist
DX: J18.9 Pneumonia, unspecified organism (principal); C79.51 Secondary malignant neoplasm of bone; C78.7 Secondary malignant neoplasm of liver and intrahepatic bile duct; Z85.3 Personal history of malignant neoplasm of breast; Z92.3 Personal history of irradiation; Z86.011 Personal history of benign neoplasm of the brain; Z98.82 Breast implant status
CPT/HCPCS: 36591; 71010; 71275; 80048; 80053; 81001; 82550; 83605; 83690; 83735; 84484; 85007; 85025; 85027; 85379; 86140; 87040; 87086; 93005; 96361; 96374; 96375; 96411; 96413; J1626; J1642; J1650; J1956; J2270; J2405; J7040; J7050; J9355; J9390; Q9967

== ENCOUNTER 2017-11-19 11:15 | Emergency (ER) | payer OTHER ==
[~2017-11-19] VITALS: Ht 157.5 cm; Wt 70.0 kg
[~2017-11-19 11:15] MED LIST changes: +LEVO500T8 PO
[2017-11-19 11:20] VITALS: BP 105/67; PULSE 112; RESP 16; TEMP 99.4; O2SAT 97
[2017-11-19 12:18] LABS: AUTOMATED NEUTROPHIL # 0.6 TH/MM3 (1.8-7.7); BASOPHIL % 1.9 % (0.0-2.0); EOSINOPHIL % 1.9 % (0.0-4.0); HEMATOCRIT 37.7 % (35.0-46.0); HEMOGLOBIN 12.2 GM/DL (11.6-15.3); LYMPH % 43.9 % (9.0-44.0); LYMPHOCYTE # 0.6 TH/MM3 (1.0-4.8); MEAN CELL VOLUME 93.4 FL (80.0-100.0); MEAN CORPUSCULAR HEMOGLOBIN 30.3 PG (27.0-34.0); MEAN CORPUSCULAR HGB CONC 32.4 % (32.0-36.0); MEAN PLATELET VOLUME 7.8 FL (7.0-11.0); MONO % 7.6 % (0.0-8.0); MONOCYTE # 0.1 TH/MM3 (0-0.9); NEUT % 44.7 % (16.0-70.0); PLATELET COUNT 278 TH/MM3 (150-450); RED BLOOD COUNT 4.04 MIL/MM3 (4.00-5.30); RED CELL DISTRIBUTION WIDTH 19.3 % (11.6-17.2); WHITE BLOOD COUNT 1.3 TH/MM3 (4.0-11.0)
[2017-11-19 12:36] LABS: ALBUMIN 3.7 GM/DL (3.4-5.0); AST (GOT) 63 U/L (15-37); BICARBONATE 22.2 MEQ/L (21.0-32.0); BLOOD UREA NITROGEN 12 MG/DL (7-18); CALCIUM 9.6 MG/DL (8.5-10.1); CHLORIDE 103 MEQ/L (98-107); CREATININE 0.92 MG/DL (0.50-1.00); GLOMERULAR FILTRATION RATE 78 ML/MIN (>89); GLUCOSE,RANDOM 92 MG/DL (74-106); SODIUM (NA) 137 MEQ/L (136-145)
[2017-11-19 12:45] LABS: ALKALINE PHOSPHATASE 250 U/L (45-117); ALT (GPT) 40 U/L (10-53); TOTAL BILIRUBIN ADULT 1.7 MG/DL (0.2-1.0); TOTAL PROTEIN 8.7 GM/DL (6.4-8.2)
[2017-11-19] MEDS ORDERED: MORPHINE SULFATE 4 MG/ML INJ IV PUSH ONE ×2 (12:45→13:30)
[2017-11-19] MEDS ORDERED: SODIUM CHLORIDE 0.9% FLUSH 10 ML FLUSH IV FLUSH PRN (12:45)
[2017-11-19] MEDS ORDERED: GABAPENTIN 100 MG CAP PO ONE (12:45)
[2017-11-19] MEDS ORDERED: SODIUM CHLOR 0.9% 1000 ML INJ 1,000 ML IV SCH (12:45)
[2017-11-19] MEDS ORDERED: valACYclovir HCL 500 MG TAB PO ONE (12:45)
--- NOTE | 2017-11-19 12:58 | PD ---
HPI Chief Complaint: GI Complaint Time Seen by Provider: 12:38 Travel History International Travel<30 days: No Contact w/Intl Traveler<30days: No Traveled to known affect area: No History of Present Illness HPI 52-year-old Afro-[place] female with history of breast cancer currently being treated by Dr. Aggarwal, presents emergency department with generalized weakness, loss of appetite, and painful rash to the left lower chest wrapping around the lower breast on the left side. Patient has had a mild cough. She denies nausea or vomiting but has had some diarrhea. Patient states her symptoms started last Sunday. It is now Sunday. She states he last had chemo 6 days ago due for another treatment a week from tomorrow. Patient denies significant fever. She denies urinary symptoms, but has had some mild decrease in urine output. Her worst complaint is the pain from the rash. She states at rest is 5 out of 10 but with movement or palpation is 9 out of 10. It is a burning lancing pain. The rash is vesicular. She states she is allergic to acetaminophen and oxycodone, however she has Percocet at home. She has not taken it as it makes her too tired. Dr. Aggarwal's office notes that she is here today. PFSH Past Medical History Hx Anticoagulant Therapy: No Asthma: No Blood Disorders: No Anxiety: No Depression: No Heart Rhythm Problems: No Cancer: Yes (breast cancer, liver and bone) Cardiovascular Problems: Yes (MVP) High Cholesterol: No Chemotherapy: Yes Chest Pain: No Congestive Heart Failure: No COPD: No Cerebrovascular Accident: No Diabetes: No Diminished Hearing: No Endocrine: No Genitourinary: No Hepatitis: No Hiatal Hernia: No Immune Disorder: No Musculoskeletal: No Neurologic: Yes (Meningioma, radiation treatment 2 years ago) Psychiatric: No Reproductive: No Respiratory: Yes (Admitted 01/24/17 with pneumonia) Radiation Therapy: Yes (menigioma in head) Sleep Apnea: No Thyroid Disease: No ?: Not Past Surgical History Abdominal Surgery: No AICD: No Body Medical Devices: BREAST RECONSTRUCTION, breast implants Cardiac Surgery: No Ear Surgery: No Endocrine Surgery: No Eye Surgery: No Genitourinary Surgery: No Gynecologic Surgery: Yes (HYSTERECTOMY) Hysterectomy: Yes Joint Replacement: No Mastectomy: Yes (bilateral) Neurologic Surgery: No Oral Surgery: No Pacemaker: No Thoracic Surgery: Yes (LT LUMPECTOMY WITH LYMPH NODES) Other Surgery: Yes (bilateral mastectomies) Social History Alcohol Use: No Tobacco Use: No Substance Use: No Allergies-Medications (Allergen,Severity, Reaction): Coded Allergies: No Known Allergies (Unverified , 11/19/17) Reported Meds & Prescriptions Reported Meds & Active Scripts Active Gabapentin 100 Mg Cap 100 Mg PO TID Acyclovir 800 Mg Tab 800 Mg PO 5 TIMES A DAY 7 Days Percocet (Oxycodone-Acetaminophen) 10-325 mg Tab 1 Tab PO Q6H PRN Prednisone 20 Mg Tab 40 Mg PO DAILY 5 Days Take 40 mg (2 tablets) daily for 5 days Levofloxacin 500 Mg Tablet 500 Mg PO DAILY Oxycodone (Oxycodone HCl) 5 Mg Tab 1-2 Tab PO Q6HR PRN Reported Senna Laxative (Sennosides) 8.6 Mg Tab Vitamin D (Cholecalciferol) 2,000 Unit Cap Review of Systems Except as stated in HPI: all other systems reviewed are Neg General / Constitutional: No: Fever, Chills Eyes: No: Visual changes HENT: No: Headaches, Vertigo, Lightheadedness, Sore Throat, Rhinitis, Rhinorrhea, Congestion, Nosebleed, Neck Stiffness, Neck Pain, Gingival Bleeding , Dental Difficulties, Ear Discharge, Earache Cardiovascular: No: Chest Pain or Discomfort Respiratory: Positive: Cough, No: Shortness of Breath, Wheezing Gastrointestinal: Positive: Diarrhea, Loss of Appetite (Mild), No: Nausea, Vomiting, Abdominal Pain Genitourinary: No: Dysuria Musculoskeletal: No: Pain Skin: Positive Lesions (Painful vesicular rash to the left lower thoracic region.), No Rash Neurologic: Positive: Weakness (Generalized), No: Dizziness, Syncope, Focal Abnormalities, Coordination Problem, Tremor, Ataxia, Headache, Change in Mentation, Slurred Speech, Paresthesia, Incontinence, Seizures, Sensory Disturbance, Other Psychiatric: No: Depression Endocrine: No: Polydipsia Hematologic/Lymphatic: No: Easy Bruising Physical Exam Narrative GENERAL: Patient appears uncomfortable, but is otherwise alert and oriented pleasant. SKIN: Warm and dry. Normal color. Normal turgor. Patient has obvious vesicular patchy rash along the T10-11 dermatome on the left consistent with herpes zoster. There is no obvious secondary infection noted. HEAD: Atraumatic. Normocephalic. EYES: Pupils equal and round. No scleral icterus. No injection or drainage. ENT: No nasal bleeding or discharge. Mucous membranes pink and moist. Pharynx is clear. Airways patent NECK: Trachea midline. No JVD. Supple and nontender. CARDIOVASCULAR: Regular rate and rhythm. RESPIRATORY: No accessory muscle use. Clear to auscultation. Breath sounds equal bilaterally. GASTROINTESTINAL: Abdomen soft, non-tender, nondistended. Hepatic and splenic margins not palpable. MUSCULOSKELETAL: Extremities without clubbing, cyanosis, or edema. No obvious deformities. NEUROLOGICAL: Awake and alert. No obvious cranial nerve deficits. Motor grossly within normal limits. Five out of 5 muscle strength in the arms and legs. Normal speech. PSYCHIATRIC: Appropriate mood and affect; insight and judgment normal. Data Data Last Documented VS Vital Signs Date Time Temp Pulse Resp B/P (MAP) Pulse Ox O2 Delivery O2 Flow Rate FiO2 11/19/17 13:17 98 Room Air 11/19/17 11:20 99.4 112 16 105/67 (80) Orders Orders Sepsis Workup Initiated (11/19/17 ) Complete Blood Count With Diff (11/19/17 11:41) Comprehensive Metabolic Panel (11/19/17 11:41) Urinalysis - C+S If Indicated (11/19/17 11:41) Lactic Acid Sepsis Protocol (11/19/17 11:41) Blood Culture (11/19/17 11:41) Iv Access Insert/Monitor (11/19/17 11:41) Oxygen Administration (11/19/17 11:41) Oximetry (11/19/17 11:41) Blood Glucose (11/19/17 11:41) Lactic Acid (11/19/17 12:45) Ecg Monitoring (11/19/17 12:45) Morphine Inj (Morphine Inj) (11/19/17 12:45) Sodium Chlor 0.9% 1000 Ml Inj (Ns 1000 M (11/19/17 12:45) Sodium Chloride 0.9% Flush (Ns Flush) (11/19/17 12:45) Chest, Single Ap (11/19/17 12:45) Valacyclovir (Valtrex) (11/19/17 12:45) Gabapentin (Neurontin) (11/19/17 12:45) Sodium Chlor 0.9% 1000 Ml Inj (Ns 1000 M (11/19/17 13:15) Precautions (11/19/17 13:25) Morphine Inj (Morphine Inj) (11/19/17 13:30) Methylprednisolone So Succ Inj (Solumedr (11/19/17 14:30) Ed Discharge Order (11/19/17 16:14) Labs Laboratory Tests Test 11/19/17 11:50 11/19/17 15:15 White Blood Count 1.3 TH/MM3 Red Blood Count 4.04 MIL/MM3 Hemoglobin 12.2 GM/DL Hematocrit 37.7 % Mean Corpuscular Volume 93.4 FL Mean Corpuscular Hemoglobin 30.3 PG Mean Corpuscular Hemoglobin Concent 32.4 % Red Cell Distribution Width 19.3 % Platelet Count 278 TH/MM3 Mean Platelet Volume 7.8 FL Neutrophils (%) (Auto) 44.7 % Lymphocytes (%) (Auto) 43.9 % Monocytes (%) (Auto) 7.6 % Eosinophils (%) (Auto) 1.9 % Basophils (%) (Auto) 1.9 % Neutrophils # (Auto) 0.6 TH/MM3 Lymphocytes # (Auto) 0.6 TH/MM3 Monocytes # (Auto) 0.1 TH/MM3 Eosinophils # (Auto) 0.0 TH/MM3 Basophils # (Auto) 0.0 TH/MM3 CBC Comment AUTO DIFF Differential Total Cells Counted 100 Neutrophils % (Manual) 35 % Band Neutrophils % 18 % Lymphocytes % 38 % Monocytes % 7 % Eosinophils % 1 % Neutrophils # (Manual) 0.7 TH/MM3 Metamyelocytes 1 % Nucleated Red Blood Cells 1 /100 WBC Differential Comment FINAL DIFF MANUAL Platelet Estimate NORMAL Platelet Morphology Comment NORMAL Blood Urea Nitrogen 12 MG/DL Creatinine 0.92 MG/DL Random Glucose 92 MG/DL Total Protein 8.7 GM/DL Albumin 3.7 GM/DL Calcium Level 9.6 MG/DL Alkaline Phosphatase 250 U/L Aspartate Amino Transf (AST/SGOT) 63 U/L Alanine Aminotransferase (ALT/SGPT) 40 U/L Total Bilirubin 1.7 MG/DL Sodium Level 137 MEQ/L Potassium Level 4.2 MEQ/L Chloride Level 103 MEQ/L Carbon Dioxide Level 22.2 MEQ/L Anion Gap 12 MEQ/L Estimat Glomerular Filtration Rate 78 ML/MIN Lactic Acid Level 4.2 mmol/L 2.7 mmol/L MDM Medical Decision Making Medical Screen Exam Complete: Yes Emergency Medical Condition: Yes Medical Record Reviewed: Yes Differential Diagnosis Leukopenic from recent chemo for breast cancer. Generalized weakness. Herpes zoster. Narrative Course Patient appears medically stable time exam. Leukopenic precautions were put in place. Labs ordered including CBC, CMP, lactic acid, urinalysis. Blood cultures were drawn. IV access is obtained, patient is given 4 mg morphine IV, 100 mg gabapentin p.o. , and 1000 mg valacyclovir p.o. Patient is given 1 L normal saline bolus. Chest x-ray is ordered. CBC shows patient to be leukopenic with a white blood cell count of 1.3. She is not anemic. Chemistries are unremarkable, with a creatinine of 0.92, BUN is 12. Bilirubin is elevated at 1.7, AST 63, alk phos is 250, and total protein is 8.7. Lactic acid is 4.2. Patient is given a total of 2 L normal saline bolus. Repeat lactic acid is 2.7. Chest x-ray is read as under aerated with moderate bibasilar parental changes worse in the left. Patient is reviewed with Dr. Parag soriano patient also calls and speaks with Dr. Ko, who is covering for Dr. Aggarwal. She does not recommend admission for the patient. Patient is given 125 mg Solu-Medrol IV, and will be continued on prednisone as an outpatient. Patient will be continued on acyclovir 800 mg mg 5 times daily for 7 days Patient will be continued on gabapentin 100 mg 3 times daily #90 Patient will continue on oxycodone 10 mg every 6 hours as needed for pain #20 Prednisone 40 mg daily for the next 5 days. Patient is to follow-up with Dr. Aggarwal's office next week, or return to emergency department with worsening symptoms as needed Diagnosis Primary Impression: Personal history of malignant neoplasm of breast Additional Impressions: Leukopenia due to antineoplastic chemotherapy Shingles outbreak Qualified Codes: B02.8 - Zoster with other complications Patient Instructions: General Instructions, Shingles (ED) Additional Instructions: Patient is reviewed with Dr. Parag soriano patient also calls and speaks with Dr. Ko, who is covering for Dr. Aggarwal. She does not recommend admission for the patient. Patient is given 125 mg Solu-Medrol IV, and will be continued on prednisone as an outpatient. Patient will be continued on acyclovir 800 mg mg 5 times daily for 7 days Patient will be continued on gabapentin 100 mg 3 times daily #90 Patient will continue on oxycodone 10 mg every 6 hours as needed for pain #20 Prednisone 40 mg daily for the next 5 days. Patient is to follow-up with Dr. Aggarwal's office next week, or return to emergency department with worsening symptoms as needed Med/Other Pt SpecificInfo: Prescription(s) given Scripts Gabapentin (Gabapentin) 100 Mg Cap 100 MG PO TID, #90 CAP 0 Refills Prov: Bert Tuttle MD 11/19/17 Acyclovir (Acyclovir) 800 Mg Tab 800 MG PO 5 TIMES A DAY for Mgmt Viral Infection for 7 Days, TAB 0 Refills Prov: Bert Tuttle MD 11/19/17 Oxycodone-Acetaminophen (Percocet) 10-325 mg Tab 1 TAB PO Q6H Y for PAIN, #20 TAB 0 Refills Prov: Bert Tuttle MD 11/19/17 Prednisone (Prednisone) 20 Mg Tab 40 MG PO DAILY for 5 Days, #10 TAB 0 Refills Take 40 mg (2 tablets) daily for 5 days Prov: Bert Tuttle MD 11/19/17 Disposition: 01 DISCHARGE HOME Condition: Stable Alexandr Boyd Nov 19, 2017 12:58
[2017-11-19 13:04] LABS: LACTIC ACID SEPSIS PROTOCOL 4.2 mmol/L (0.4-2.0)
[2017-11-19 13:07] LABS: BANDS 18 % (0-6); CORRECTED NUCLEATED RBC 1 /100 WBC (0-0); LYMPHOCYTES 38 % (9-44); METAMYELOCYTES 1 % (0-1); MONOCYTES 7 % (0-8); NEUTROPHIL # MANUAL DIFF 0.7 TH/MM3 (1.8-7.7); NUCLEATED RED BLOOD CELL 1 (0-0); POLYS (SEG NEUTROPHILS) 35 % (16-70)
[2017-11-19] MEDS ORDERED: SODIUM CHLOR 0.9% 1000 ML INJ 1,000 ML IV ONE (13:15)
[2017-11-19 13:17] VITALS: O2SAT 98
--- NOTE | 2017-11-19 13:32 | RADRPT ---
EXAM DATE: 11/19/2017 1:25 PM EDT AGE/SEX: 52 years / Female INDICATIONS: Chest pain. CLINICAL DATA: This is the patient's initial encounter. Patient reports that signs and symptoms have been present for 2 days and indicates a pain score of 6/10. MEDICAL/SURGICAL HISTORY: Carcinoma, breast. Carcinoma, bone. Mastectomy, bilateral. Hysterec kaylen. [id number] [place] [facility] [place]. . FINDINGS: Central line in good position. Lungs are under aerated with bibasilar parental changes worse on the l eft. Mild cardiomegaly. The portion of the bony skeleton visualized is unremarkable. CONCLUSION: Under aerated with moderate bibasilar parental changes worse in the left Electronically signed by: Alex Kelley MD 11/19/2017 1:30 PM EDT
--- NOTE | 2017-11-19 13:40 | PD ---
Physical Exam Date Seen by Provider: Nov 19, 2017 Time Seen by Provider: 13:32 Narrative The patient is a 52-year-old female who presents emergency department for left flank pain with rash. Patient was initially evaluated by the mid-level provider. Please refer to the initial history, physical, diagnostic evaluation, and treatment modality plan. Data Data Last Documented VS Vital Signs Date Time Temp Pulse Resp B/P (MAP) Pulse Ox O2 Delivery O2 Flow Rate FiO2 11/19/17 13:17 98 Room Air 11/19/17 11:20 99.4 112 16 105/67 (80) Orders Orders Sepsis Workup Initiated (11/19/17 ) Complete Blood Count With Diff (11/19/17 11:41) Comprehensive Metabolic Panel (11/19/17 11:41) Urinalysis - C+S If Indicated (11/19/17 11:41) Lactic Acid Sepsis Protocol (11/19/17 11:41) Blood Culture (11/19/17 11:41) Iv Access Insert/Monitor (11/19/17 11:41) Oxygen Administration (11/19/17 11:41) Oximetry (11/19/17 11:41) Blood Glucose (11/19/17 11:41) Lactic Acid (11/19/17 12:45) Ecg Monitoring (11/19/17 12:45) Morphine Inj (Morphine Inj) (11/19/17 12:45) Sodium Chlor 0.9% 1000 Ml Inj (Ns 1000 M (11/19/17 12:45) Sodium Chloride 0.9% Flush (Ns Flush) (11/19/17 12:45) Chest, Single Ap (11/19/17 12:45) Valacyclovir (Valtrex) (11/19/17 12:45) Gabapentin (Neurontin) (11/19/17 12:45) Sodium Chlor 0.9% 1000 Ml Inj (Ns 1000 M (11/19/17 13:15) Precautions (11/19/17 13:25) Morphine Inj (Morphine Inj) (11/19/17 13:30) Methylprednisolone So Succ Inj (Solumedr (11/19/17 14:30) Ed Discharge Order (11/19/17 16:14) Labs Laboratory Tests Test 11/19/17 11:50 11/19/17 15:15 White Blood Count 1.3 TH/MM3 Red Blood Count 4.04 MIL/MM3 Hemoglobin 12.2 GM/DL Hematocrit 37.7 % Mean Corpuscular Volume 93.4 FL Mean Corpuscular Hemoglobin 30.3 PG Mean Corpuscular Hemoglobin Concent 32.4 % Red Cell Distribution Width 19.3 % Platelet Count 278 TH/MM3 Mean Platelet Volume 7.8 FL Neutrophils (%) (Auto) 44.7 % Lymphocytes (%) (Auto) 43.9 % Monocytes (%) (Auto) 7.6 % Eosinophils (%) (Auto) 1.9 % Basophils (%) (Auto) 1.9 % Neutrophils # (Auto) 0.6 TH/MM3 Lymphocytes # (Auto) 0.6 TH/MM3 Monocytes # (Auto) 0.1 TH/MM3 Eosinophils # (Auto) 0.0 TH/MM3 Basophils # (Auto) 0.0 TH/MM3 CBC Comment AUTO DIFF Differential Total Cells Counted 100 Neutrophils % (Manual) 35 % Band Neutrophils % 18 % Lymphocytes % 38 % Monocytes % 7 % Eosinophils % 1 % Neutrophils # (Manual) 0.7 TH/MM3 Metamyelocytes 1 % Nucleated Red Blood Cells 1 /100 WBC Differential Comment FINAL DIFF MANUAL Platelet Estimate NORMAL Platelet Morphology Comment NORMAL Blood Urea Nitrogen 12 MG/DL Creatinine 0.92 MG/DL Random Glucose 92 MG/DL Total Protein 8.7 GM/DL Albumin 3.7 GM/DL Calcium Level 9.6 MG/DL Alkaline Phosphatase 250 U/L Aspartate Amino Transf (AST/SGOT) 63 U/L Alanine Aminotransferase (ALT/SGPT) 40 U/L Total Bilirubin 1.7 MG/DL Sodium Level 137 MEQ/L Potassium Level 4.2 MEQ/L Chloride Level 103 MEQ/L Carbon Dioxide Level 22.2 MEQ/L Anion Gap 12 MEQ/L Estimat Glomerular Filtration Rate 78 ML/MIN Lactic Acid Level 4.2 mmol/L 2.7 mmol/L [facility] Medical Record Reviewed: Yes Supervised Visit with WENDI: Yes Interpretation(s) Last Impressions Chest X-Ray 11/19/17 1245 Signed Impressions: CONCLUSION: Under aerated with moderate bibasilar parental changes worse in the left Laboratory Tests Test 11/19/17 11:50 11/19/17 15:15 White Blood Count 1.3 TH/MM3 Red Blood Count 4.04 MIL/MM3 Hemoglobin 12.2 GM/DL Hematocrit 37.7 % Mean Corpuscular Volume 93.4 FL Mean Corpuscular Hemoglobin 30.3 PG Mean Corpuscular Hemoglobin Concent 32.4 % Red Cell Distribution Width 19.3 % Platelet Count 278 TH/MM3 Mean Platelet Volume 7.8 FL Neutrophils (%) (Auto) 44.7 % Lymphocytes (%) (Auto) 43.9 % Monocytes (%) (Auto) 7.6 % Eosinophils (%) (Auto) 1.9 % Basophils (%) (Auto) 1.9 % Neutrophils # (Auto) 0.6 TH/MM3 Lymphocytes # (Auto) 0.6 TH/MM3 Monocytes # (Auto) 0.1 TH/MM3 Eosinophils # (Auto) 0.0 TH/MM3 Basophils # (Auto) 0.0 TH/MM3 CBC Comment AUTO DIFF Differential Total Cells Counted 100 Neutrophils % (Manual) 35 % Band Neutrophils % 18 % Lymphocytes % 38 % Monocytes % 7 % Eosinophils % 1 % Neutrophils # (Manual) 0.7 TH/MM3 Metamyelocytes 1 % Nucleated Red Blood Cells 1 /100 WBC Differential Comment FINAL DIFF MANUAL Platelet Estimate NORMAL Platelet Morphology Comment NORMAL Blood Urea Nitrogen 12 MG/DL Creatinine 0.92 MG/DL Random Glucose 92 MG/DL Total Protein 8.7 GM/DL Albumin 3.7 GM/DL Calcium Level 9.6 MG/DL Alkaline Phosphatase 250 U/L Aspartate Amino Transf (AST/SGOT) 63 U/L Alanine Aminotransferase (ALT/SGPT) 40 U/L Total Bilirubin 1.7 MG/DL Sodium Level 137 MEQ/L Potassium Level 4.2 MEQ/L Chloride Level 103 MEQ/L Carbon Dioxide Level 22.2 MEQ/L Anion Gap 12 MEQ/L Estimat Glomerular Filtration Rate 78 ML/MIN Lactic Acid Level 4.2 mmol/L 2.7 mmol/L Differential Diagnosis Differential diagnosis includes shingles, immunocompromised state, neutropenia, febrile illness, pneumonia, pleural effusion, ACS, pericarditis, myocarditis. Narrative Course I, Dr. Tuttle, have reviewed the advance practice practitioner's documentation and am in agreement, met with the patient face to face, made the diagnosis, and the medical decision making was done by me. *My assessment and Findings: The patient is a 52-year-old female who has a history of HER-2 positive metastatic breast cancer that is followed by her oncologist, Dr. Aggarwal. The patient recently noticed some pain on the left flank, just under the breasts that radiates from the back to the anterior aspect of the abdomen, she now notes a rash of the affected area. The patient last received chemotherapy last week, she does 2 weeks on, one-week off. The patient denies any current fever, does no blistering pain which is significantly painful over the affected area. She does take oxycodone at home for pain. However, she does not take her pain medications on a regular basis. She does note the area significantly painful, however, she was unable to follow- up with Dr. Aggarwal as he is currently on vacation. The patient denies any previous history of shingles, does have a history of chickenpox. The patient was administered morphine and Valtrex, a call was placed to the on-call stock shipper/oncologist to treatment options as the patient's white count is 1.3 , bands are 18%, and patient may have contraindication to prednisone. I discussed the patient with Dr. Ko who states the patient can have both the acyclovir and prednisone after reviewing her labs. The patient's bilirubin was slightly elevated, however, she does have a history of elevated bilirubin levels in the past. Therefore, the patient was administered Solu-Medrol 125 mg intravenously. She will be discharged home on acyclovir and prednisone with pain medication. The patient's lactic acid improved from 4.2-2.7 with IV fluids. The patient be discharged home. She is advised to follow-up with her oncologist and primary physician. Return if symptoms worsen or progress. Diagnosis Primary Impression: Personal history of malignant neoplasm of breast Additional Impressions: Leukopenia due to antineoplastic chemotherapy Shingles outbreak Qualified Codes: B02.8 - Zoster with other complications Patient Instructions: General Instructions Additional Instruction: Follow-up with your primary physician. Please provide the patient a copy of her labs at discharge. Follow-up with her stock shipper/oncologist. Return if symptoms worsen or progress. Med/Other Pt SpecificInfo: Prescription(s) given Scripts Gabapentin (Gabapentin) 100 Mg Cap 100 MG PO TID, #90 CAP 0 Refills Prov: Bert Tuttle MD 11/19/17 Acyclovir (Acyclovir) 800 Mg Tab 800 MG PO 5 TIMES A DAY for Mgmt Viral Infection for 7 Days, TAB 0 Refills Prov: Bert Tuttle MD 11/19/17 Oxycodone-Acetaminophen (Percocet) 10-325 mg Tab 1 TAB PO Q6H Y for PAIN, #20 TAB 0 Refills Prov: Bert Tuttle MD 11/19/17 Prednisone (Prednisone) 20 Mg Tab 40 MG PO DAILY for 5 Days, #10 TAB 0 Refills Take 40 mg (2 tablets) daily for 5 days Prov: Bert Tuttle MD 11/19/17 Disposition: 01 DISCHARGE HOME Condition: Stable Bert Tuttle MD Nov 19, 2017 13:40
[2017-11-19] MEDS ORDERED: ACYC800T PO (14:26)
[2017-11-19] MEDS ORDERED: PRED20 PO (14:26)
[2017-11-19] MEDS ORDERED: PERC10TA27 PO (14:26)
[2017-11-19] MEDS ORDERED: GABA100C4 PO (14:27)
[2017-11-19] MEDS ORDERED: methylPREDNISolone SOD SUCC 125 MG/2 ML VIAL IV PUSH ONE (14:30)
[2017-11-19 17:15] VITALS: BP 145/78; PULSE 83; RESP 19; O2SAT 96
== END 2017-11-19 17:36 | disposition home or self-care (01) ==
LOC: NEPC 11:15
DX: C50.919 Malignant neoplasm of unspecified site of unspecified female breast (principal); D70.1 Agranulocytosis secondary to cancer chemotherapy; C78.7 Secondary malignant neoplasm of liver and intrahepatic bile duct; C79.51 Secondary malignant neoplasm of bone; B02.9 Zoster without complications; Z17.0 Estrogen receptor positive status [ER+]
CPT/HCPCS: 71045; 80053; 83605; 85007; 85027; 87040; 96361; 96374; 96375; 96376; 99284; J2270; J2930; J7030